=== PATIENT | female | born 1960 | race Caucasian/White ===

== ENCOUNTER 2017-01-11 21:26 | Emergency (ER) | payer MEDICAID ==
[2017-01-11] MEDS ORDERED: NORMAL SALINE 1000 ML 1,000 ML IV ONE (22:27)
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
[2017-01-11] MEDS ORDERED: IBUPROFEN 600 MG TABLET PO ONE (22:50)
[2017-01-11] MEDS ORDERED: HYDROCODONE/ACETAMINOPHEN 5-325 MG TABLET PO ONE (22:50)
[2017-01-11] MEDS ORDERED: ONDANSETRON 4 MG TAB.RAPDIS PO ONE (23:05)
[2017-01-11] MEDS ORDERED: OXYCODONE-ACETAMINOPHEN 5-325 MG TABLET PO ONE (23:05)
[2017-01-12 06:04] VITALS: BP 118/83
--- NOTE | 2017-01-13 08:14 | EKG REPORT ---
SEVERITY:- ABNORMAL ECG - SINUS RHYTHM PROBABLE INFERIOR INFARCT, AGE INDETERMINATE CONSIDER ANTERIOR INFARCT : Confirmed by: Yamilka Wellington MD 13-Jan-2017 08:13:59
== END 2017-01-11 23:24 | disposition home or self-care (01) ==
LOC: ER 21:26
DX: G89.29 Other chronic pain (principal); M25.511 Pain in right shoulder; I10 Essential (primary) hypertension; J44.9 Chronic obstructive pulmonary disease, unspecified; Z79.899 Other long term (current) drug therapy; Z88.7 Allergy status to serum and vaccine; Z91.040 Latex allergy status; Z91.013 Allergy to seafood
CPT/HCPCS: 93005; 99284; 71010; 93010; L3984; S0119

== ENCOUNTER 2017-01-14 07:37 | Emergency (ER) | payer MEDICAID ==
[2017-01-14] MEDS ORDERED: ONDANSETRON HCL INJ/PF 4 MG/2 ML SDV IV ONE (07:54)
--- NOTE | 2017-01-14 07:57 | ER Document Report ---
ED General - General Chief Complaint: ETOH Abuse Stated Complaint: POSSIBLE ETOH Mode of Arrival: Medic Information source: Patient, Emergency Med Personnel, H Records Notes: 56-year-old female history of chronic shoulder pain and alcohol abuse presents with complaints of alcohol intoxication. Patient states that TRAVEL OUTSIDE OF THE [place] IN LAST 30 DAYS: No - HPI Onset: Other - chronic shoulder pain Onset/Duration: Persistent Quality of pain: Achy Severity: Mild Pain Level: 1 Associated symptoms: Other Exacerbated by: Movement Relieved by: Denies Similar symptoms previously: Yes Recently seen / treated by doctor: Yes - Related Data Allergies/Adverse Reactions: Tetanus Vaccines and Toxoid [Tetanus] Allergy (Severe, Verified 09/24/16 13:32) Latex, Natural Rubber Allergy (Verified 01/11/17 21:32) shellfish derived Allergy (Verified 01/11/17 21:32) Past Medical History - Social History Smoking Status: Current Every Day Smoker Cigarette use (# per day): Yes Chew tobacco use (# tins/day): No Smoking Education Provided: No Frequency of alcohol use: Heavy Family History: CAD, DM, Hyperlipidemia, Hypertension. denies: Arthritis, COPD , CVA, Malignancy, Thyroid Disfunction - Past Medical History Cardiac Medical History: Reports: Hx Hypertension Pulmonary Medical History: Reports: Hx COPD, Hx Pneumonia - at age 15 Denies: Hx Tuberculosis Renal/ Medical History: Denies: Hx Peritoneal Dialysis Musculoskeltal Medical History: Reports Hx Arthritis, Reports Hx Musculoskeletal Deformity Psychiatric Medical History: Reports: Hx Attention Deficit Hyperactivity Disorder, Hx Bipolar Disorder Past Surgical History: Reports: Hx Appendectomy, Hx Tonsillectomy - Immunizations Immunizations up to date: No Hx Diphtheria, Pertussis, Tetanus Vaccination: No Review of Systems - Review of Systems Notes: REVIEW OF SYSTEMS: CONSTITUTIONAL : Denies fever, chills, or sweats. Denies recent illness. EENT: Denies eye, ear, throat, or mouth pain or symptoms. Denies nasal or sinus congestion or discharge. Denies throat, tongue, or mouth swelling or difficulty swallowing. CARDIOVASCULAR: Denies chest pain. Denies palpitations or racing or irregular heart beat. Denies ankle edema. RESPIRATORY: Denies cough, cold, or chest congestion. Denies shortness of breath, difficulty breathing, or wheezing. GASTROINTESTINAL: Denies abdominal pain or distention. Denies nausea, vomiting , or diarrhea. Denies blood in vomitus, stools, or per rectum. Denies black, tarry stools. Denies constipation. GENITOURINARY: Denies difficulty urinating, painful urination, burning, frequency, blood in urine, or discharge. FEMALE GENITOURINARY: Denies vaginal bleeding, heavy or abnormal periods, irregular periods. Denies vaginal discharge or odor. MUSCULOSKELETAL: Right shoulder pain SKIN: Denies rash, lesions or sores. HEMATOLOGIC : Denies easy bruising or bleeding. LYMPHATIC: Denies swollen, enlarged glands. NEUROLOGICAL: Denies confusion or altered mental status. Denies passing out or loss of consciousness. Denies dizziness or lightheadedness. Denies headache. Denies weakness or paralysis or loss of use of either side. Denies problems with gait or speech. Denies sensory loss, numbness, or tingling. Denies seizures. PSYCHIATRIC: Admits to feeling anxious ALL OTHER SYSTEMS REVIEWED AND NEGATIVE. Dictation was performed using [employer] voice recognition software PHYSICAL EXAMINATION: GENERAL: Well-appearing, well-nourished and in no acute distress. HEAD: Atraumatic, normocephalic. EYES: Pupils equal round and reactive to light, extraocular movements intact, conjunctiva are normal. ENT: Nares patent, oropharynx clear without exudates. Moist mucous membranes. NECK: Normal range of motion, supple without lymphadenopathy LUNGS: Breath sounds clear to auscultation bilaterally and equal. No wheezes rales or rhonchi. HEART: Regular rate and rhythm without murmurs ABDOMEN: Soft, nontender, nondistended abdomen. No guarding, no rebound. No masses appreciated. Female : deferred Musculoskeletal: Admits to pain with range of motion NEUROLOGICAL: Cranial nerves grossly intact. Normal speech, normal gait. Normal sensory, motor exams PSYCH: Normal mood, normal affect. SKIN: Warm, Dry, normal turgor, no rashes or lesions noted. Physical Exam - Vital signs Vitals: Temp Pulse Resp BP Pulse Ox 97.8 F 89 16 119/76 97 01/14/17 07:53 01/14/17 07:53 01/14/17 07:53 01/14/17 07:53 01/14/17 07:53 Course - Re-evaluation Re-evalutation: 01/14/17 08:13 Patient was now withdrawn, she is in no distress. Stated that she was anxious resting comfortably on the bed. Patient was told multiple times that she would not be given any benzos at this time since she is not in any withdrawal. Patient alert oriented, appears that she was shown the bathroom and then went away. IV was in place, nursing staff informed me that the patient had left, multiple times to locate her have been tried Otherwise it appears patient has left prior to discharge, she was not intoxicated - Vital Signs Vital signs: Temp Pulse Resp BP Pulse Ox 97.8 F 89 16 119/76 97 01/14/17 07:53 01/14/17 07:53 01/14/17 07:53 01/14/17 07:53 01/14/17 07:53 Discharge - Discharge Clinical Impression: Shoulder pain, right Qualifiers: Chronicity: chronic Qualified Code(s): M25.511 - Pain in right shoulder Condition: Stable Disposition: ELOPED Additional Instructions: You have left prior to a full evaluation, at this time nursing staff has been informed to attempt to locate you
[2017-01-14 07:58] VITALS: BP 119/76
== END 2017-01-14 09:10 | disposition left against medical advice (07) ==
LOC: ER 07:37
DX: G89.29 Other chronic pain (principal); M25.511 Pain in right shoulder; F10.129 Alcohol abuse with intoxication, unspecified; F41.9 Anxiety disorder, unspecified; I10 Essential (primary) hypertension; J44.9 Chronic obstructive pulmonary disease, unspecified; F17.210 Nicotine dependence, cigarettes, uncomplicated; Z88.7 Allergy status to serum and vaccine; Z91.040 Latex allergy status; Z91.013 Allergy to seafood; Z53.20 Procedure and treatment not carried out because of patient's decision for unspecified reasons
CPT/HCPCS: 99281; 96374; J2405

== ENCOUNTER 2017-01-17 07:30 | Emergency (ER) | payer MEDICAID ==
[2017-01-17 07:55] VITALS: BP 121/59
--- NOTE | 2017-01-17 08:13 | ER Document Report ---
ED General - General Chief Complaint: ETOH Abuse Stated Complaint: POSSIBLE ETOH TRAVEL OUTSIDE OF THE [place] IN LAST 30 DAYS: No - HPI Patient complains to provider of: alcohol use Notes: Patient coming in today stating that she is drunk initially requesting medications for alcohol withdrawals. Patient states to EMS that she drank 2 gallons of vodka prior to arrival. Patient refused all care by EMS. Upon my entrance into examination room patient is a alert and oriented patient is requesting medications for alcohol withdrawals. Patient is drinking water however upon placing the cutdown starts to shake in her upper extremities pointing to the tremor stating "I have tremors". Patient is alert and oriented she is able to refuse medical care by EMS also was able to call EMS therefore I think she is within the right mind to make raw medical decisions. Patient does not seem to be drunk at this time. Patient also complains of chronic right shoulder pain for she's been evaluated for multiple times here in the ER. Denies any fevers chills nausea vomiting recent trauma recent antibiotics or recent travel - Related Data Allergies/Adverse Reactions: Tetanus Vaccines and Toxoid [Tetanus] Allergy (Severe, Verified 01/17/17 07:58) Latex, Natural Rubber Allergy (Verified 01/17/17 07:58) shellfish derived Allergy (Verified 01/17/17 07:58) Past Medical History - Social History Smoking Status: Unknown if Ever Smoked Family History: CAD, DM, Hyperlipidemia, Hypertension. denies: Arthritis, COPD , CVA, Malignancy, Thyroid Disfunction - Past Medical History Cardiac Medical History: Reports: Hx Hypertension Pulmonary Medical History: Reports: Hx COPD, Hx Pneumonia - at age 15 Denies: Hx Tuberculosis Renal/ Medical History: Denies: Hx Peritoneal Dialysis Musculoskeltal Medical History: Reports Hx Arthritis, Reports Hx Musculoskeletal Deformity Psychiatric Medical History: Reports: Hx Attention Deficit Hyperactivity Disorder, Hx Bipolar Disorder Past Surgical History: Reports: Hx Appendectomy, Hx Tonsillectomy - Immunizations Immunizations up to date: No Hx Diphtheria, Pertussis, Tetanus Vaccination: No Review of Systems - Review of Systems Constitutional: No symptoms reported EENT: No symptoms reported Cardiovascular: No symptoms reported Respiratory: No symptoms reported Gastrointestinal: No symptoms reported Genitourinary: No symptoms reported Female Genitourinary: No symptoms reported Musculoskeletal: No symptoms reported Skin: No symptoms reported Hematologic/Lymphatic: No symptoms reported Neurological/Psychological: Other - Alcohol use Physical Exam - Vital signs Vitals: Temp Pulse Resp BP Pulse Ox 97.5 F 117 H 18 121/59 L 98 01/17/17 07:36 01/17/17 07:36 01/17/17 07:36 01/17/17 07:36 01/17/17 07:36 Interpretation: Normal - General General appearance: Appears well, Alert - HEENT Head: Normocephalic, Atraumatic Eyes: Normal Pupils: PERRL - Respiratory Respiratory status: No respiratory distress Chest status: Nontender Breath sounds: Normal Chest palpation: Normal - Cardiovascular Rhythm: Regular Heart sounds: Normal auscultation Murmur: No - Abdominal Inspection: Normal Distension: No distension Bowel sounds: Normal Tenderness: Nontender Organomegaly: No organomegaly - Back Back: Normal, Nontender - Extremities General upper extremity: Normal inspection, Tender - Patient states pain to palpation of the right shoulder although lying on her right side comfortably, Normal color, Normal ROM, Normal temperature General lower extremity: Normal inspection, Nontender, Normal color, Normal ROM , Normal temperature, Normal weight bearing. No: Maye's sign - Neurological Neuro grossly intact: Yes Cognition: Normal Orientation: AAOx4 Mi Coma Scale Eye Opening: Spontaneous [place] Coma Scale Verbal: Oriented Mi Coma Scale Motor: Obeys Commands Mi Coma Scale Total: 15 Speech: Normal Motor strength normal: LUE, RUE, LLE, RLE Sensory: Normal - Psychological Associated symptoms: Normal affect, Normal mood - Skin Skin Temperature: Warm Skin Moisture: Dry Skin Color: Normal Course - Re-evaluation Re-evalutation: 01/17/17 08:40 Patient's vital signs stable EMS are normal. Patient has no signs of alcohol withdrawals at this time patient is alert and oriented they would make her own medical decisions. Explained to patient that this time she is not going through any alcohol withdrawals. However patient outpatient management groups and resources to help out with her alcoholism. Patient will be discharged home patient was referred to [facility] - Vital Signs Vital signs: Temp Pulse Resp BP Pulse Ox 97.5 F 117 H 18 121/59 L 98 01/17/17 07:36 01/17/17 07:36 01/17/17 07:36 01/17/17 07:36 01/17/17 07:36 Discharge - Discharge Clinical Impression: Chronic alcohol abuse Condition: Good Disposition: HOME, SELF-CARE Instructions: Chronic Alcoholism ([facility]) Additional Instructions: Your vital signs are normal there is no signs of alcohol withdrawals at this time. I would highly recommend following up at [facility] which is located adjacent from the ER for your alcohol issues. Referrals: [facility] [Provider Group] - Follow up as needed [facility] [Provider Group] - Follow up as needed [facility] [Provider Group] - Follow up as needed
== END 2017-01-17 08:26 | disposition home or self-care (01) ==
LOC: ER 07:30
DX: F10.10 Alcohol abuse, uncomplicated (principal)
CPT/HCPCS: 99284

== ENCOUNTER 2017-01-20 08:33 | Emergency (ER) | payer MEDICAID ==
[2017-01-20] MEDS ORDERED: IPRATROPIUM/ALBUTEROL 0.5-2.5 MG/3 ML AMPUL NEB ONE (09:07)
--- NOTE | 2017-01-20 09:09 | ER Document Report ---
ED General - General Stated Complaint: WITHDRAWAL SYMPTONS Mode of Arrival: Medic Information source: Patient, [facility] Records Notes: 56-year-old chronic alcoholic who is presenting now multiple times for similar complaints of withdrawal yet has never shown any signs of withdrawal presents again with complaints of withdrawal. Patient notes she was recently discharged from the ED a few hours ago. pt denies any nausea or vomiting. admits to depression TRAVEL OUTSIDE OF THE [place] IN LAST 30 DAYS: No - HPI Onset: Other Onset/Duration: Persistent Quality of pain: No pain Severity: Mild Pain Level: 1 Associated symptoms: Other Exacerbated by: Denies Relieved by: Denies Similar symptoms previously: Yes Recently seen / treated by doctor: Yes - Related Data Allergies/Adverse Reactions: Tetanus Vaccines and Toxoid [Tetanus] Allergy (Severe, Verified 01/17/17 07:58) Latex, Natural Rubber Allergy (Verified 01/17/17 07:58) shellfish derived Allergy (Verified 01/17/17 07:58) Home Medications: Current Home Medications Fluticasone/Salmeterol [Advair 250-50 Diskus 28 dose] 1 inh IH Q12 01/20/17 [ History] Gabapentin [Neurontin 300 mg Capsule] 300 mg PO QID 01/20/17 [History] Lisinopril/Hydrochlorothiazide [Lisinopril-Hctz 10-12.5 mg Tab] 1 each PO DAILY 01/20/17 [History] Simvastatin [Zocor 20 mg Tablet] 20 mg PO QHS 01/20/17 [History] Tramadol HCl [Ultram 50 mg Tablet] 50 mg PO Q8HP PRN 01/20/17 [History] Past Medical History - Social History Smoking Status: Current Every Day Smoker Cigarette use (# per day): Yes Chew tobacco use (# tins/day): No Smoking Education Provided: Yes - Patient counselled regarding cessation for 4 minutes Family History: CAD, DM, Hyperlipidemia, Hypertension. denies: Arthritis, COPD , CVA, Malignancy, Thyroid Disfunction - Past Medical History Cardiac Medical History: Reports: Hx Hypertension Pulmonary Medical History: Reports: Hx COPD, Hx Pneumonia - at age 15 Denies: Hx Tuberculosis Renal/ Medical History: Denies: Hx Peritoneal Dialysis Musculoskeltal Medical History: Reports Hx Arthritis, Reports Hx Musculoskeletal Deformity Psychiatric Medical History: Reports: Hx Attention Deficit Hyperactivity Disorder, Hx Bipolar Disorder Past Surgical History: Reports: Hx Appendectomy, Hx Tonsillectomy - Immunizations Immunizations up to date: No Hx Diphtheria, Pertussis, Tetanus Vaccination: No Review of Systems - Review of Systems Notes: REVIEW OF SYSTEMS: CONSTITUTIONAL : Denies fever, chills, or sweats. Denies recent illness. EENT: Denies eye, ear, throat, or mouth pain or symptoms. Denies nasal or sinus congestion or discharge. Denies throat, tongue, or mouth swelling or difficulty swallowing. CARDIOVASCULAR: Denies chest pain. Denies palpitations or racing or irregular heart beat. Denies ankle edema. RESPIRATORY: admits to wheezing GASTROINTESTINAL: Denies abdominal pain or distention. Denies nausea, vomiting , or diarrhea. Denies blood in vomitus, stools, or per rectum. Denies black, tarry stools. Denies constipation. GENITOURINARY: Denies difficulty urinating, painful urination, burning, frequency, blood in urine, or discharge. FEMALE GENITOURINARY: Denies vaginal bleeding, heavy or abnormal periods, irregular periods. Denies vaginal discharge or odor. MUSCULOSKELETAL: Denies back or neck pain or stiffness. Denies joint pain or swelling. SKIN: Denies rash, lesions or sores. HEMATOLOGIC : Denies easy bruising or bleeding. LYMPHATIC: Denies swollen, enlarged glands. NEUROLOGICAL: Denies confusion or altered mental status. Denies passing out or loss of consciousness. Denies dizziness or lightheadedness. Denies headache. Denies weakness or paralysis or loss of use of either side. Denies problems with gait or speech. Denies sensory loss, numbness, or tingling. Denies seizures. PSYCHIATRIC: admits ot depresison ALL OTHER SYSTEMS REVIEWED AND NEGATIVE. Dictation was performed using [employer] voice recognition software PHYSICAL EXAMINATION: GENERAL: Well-appearing, well-nourished and in no acute distress. HEAD: Atraumatic, normocephalic. EYES: Pupils equal round and reactive to light, extraocular movements intact, conjunctiva are normal. ENT: Nares patent, oropharynx clear without exudates. Moist mucous membranes. NECK: Normal range of motion, supple without lymphadenopathy LUNGS: inspiatory and expiratroy wheezing noted HEART: Regular rate and rhythm without murmurs ABDOMEN: Soft, nontender, nondistended abdomen. No guarding, no rebound. No masses appreciated. Female : deferred Musculoskeletal: Normal range of motion, no pitting or edema. No cyanosis. NEUROLOGICAL: Cranial nerves grossly intact. Normal speech, normal gait. Normal sensory, motor exams PSYCH: Normal mood, normal affect. SKIN: Warm, Dry, normal turgor, no rashes or lesions noted. Physical Exam - Vital signs Vitals: Pulse Resp BP Pulse Ox 102 H 22 H 120/66 97 01/20/17 09:15 01/20/17 09:15 01/20/17 09:15 01/20/17 09:15 Course - Re-evaluation Re-evalutation: 01/20/17 09:10 Patient will require mental health evaluation has is now her third visit 01/20/17 12:58 Patient was evaluated by mental health, they will provide her with resources for her alcohol abuse. I have the patient does follow with this otherwise she will just return with similar complaints. Patient is not withdrawing at this time and I do not have any suspicion of self-harm gestures After performing a Medical Screening Examination, I estimate there is LOW risk for ACUTE CORONARY SYNDROME, RESPIRATORY FAILURE, SEPSIS OR MENINGITIS, thus I consider the discharge disposition reasonable. The patient and I have discussed the diagnosis and risks, and we agree with discharging home with close follow- up. We also discussed returning to the Emergency Department immediately if new or worsening symptoms occur. We have discussed the symptoms which are most concerning (e.g., changing or worsening pain, trouble swallowing or breathing, neck stiffness, fever) that necessitate immediate return. - Vital Signs Vital signs: Temp Pulse Resp BP Pulse Ox 102 H 22 H 120/66 100 01/20/17 09:15 01/20/17 09:15 01/20/17 09:15 01/20/17 10:45 - Laboratory Result Diagrams: 01/20/17 11:37 01/20/17 10:45 Laboratory results interpreted by me: 01/20/17 01/20/17 01/20/17 10:40 10:45 11:37 WBC 14.0 H Seg Neutrophils % 82.3 H Lymphocytes % 11.7 L Absolute Neutrophils 11.5 H Sodium 124.9 L Chloride 79 L Carbon Dioxide 18 L Anion Gap 28 H BUN 42 H Calcium 8.3 L AST 87 H ALT 61 H Total Protein 6.1 L Urine Protein 30 H Urine Ketones 20 H Urine Blood MODERATE H Salicylates < 1.0 L Acetaminophen < 10 L - EKG Interpretation by Me EKG shows normal: Sinus rhythm, [place], Intervals, QRS Complexes Discharge - Discharge Clinical Impression: Encounter for smoking cessation counseling, Chronic alcohol abuse Condition: Stable Disposition: HOME, SELF-CARE Instructions: Chronic Alcoholism ([facility]) Additional Instructions: Please follow up with the care plan provided to you by our mental health team or return immediately if there are any other concerns
[2017-01-20] MEDS ORDERED: ONDANSETRON HCL 8 MG TABLET PO ONE (11:09)
[2017-01-20 11:25] LABS: APPEARANCE,URINE SLIGHTLY-CLOUDY; BILIRUBIN,URINE NEGATIVE (NEGATIVE); GLUCOSE, URINE NEGATIVE (NEGATIVE); KETONES,URINE 20 mg/dL (NEGATIVE); LEUKOCYTE ESTERASE,URINE NEGATIVE (NEGATIVE); NITRITE,URINE NEGATIVE (NEGATIVE); PROTEIN,URINE 30 mg/dL (NEGATIVE); URINE SPECIFIC GRAVITY 1.017; UROBILINOGEN,URINE NEGATIVE mg/dL (<2.0)
[2017-01-20 11:42] LABS: ALANINE AMINOTRANSFERASE 61 U/L (9-52); ALCOHOL 184 mg/dL (NONE DETECTED); ALKALINE PHOSPHATASE 92 U/L (38-126); ASPARTATE AMINO TRANSFERASE 87 U/L (14-36); BLOOD UREA NITROGEN 42 mg/dL (7-20); CALCIUM 8.3 mg/dL (8.4-10.2); CARBON DIOXIDE 18 mmol/L (22-30); CHLORIDE 79 mmol/L (98-107); CREATININE RESULT 0.94 mg/dL (0.52-1.25); GLUCOSE 83 mg/dL (75-110); POTASSIUM 4.2 mmol/L (3.6-5.0); SODIUM 124.9 mmol/L (137-145); TOTAL PROTEIN 6.1 g/dL (6.3-8.2)
[2017-01-20 11:51] LABS: URINE BARBITURATES SCREEN NEGATIVE; URINE METHADONE SCREEN NEGATIVE; URINE OPIATES LOW NEGATIVE; URINE PHENCYCLIDINE SCREEN NEGATIVE
[2017-01-20 11:52] LABS: ABSOLUTE BASOPHILS # (AUTO) 0.1 10^3/uL (0.0-0.2); ABSOLUTE LYMPHOCYTES (AUTO) 1.6 10^3/uL (0.5-4.7); ABSOLUTE MONOCYTES (AUTO) 0.8 10^3/uL (0.1-1.4); ABSOLUTE NEUT (AUTO) 11.5 10^3/uL (1.7-8.2); BASOPHILS % (AUTO) 0.4 % (0-2); EOSINOPHILS % (AUTO) 0.2 % (0-6); HEMATOCRIT 40.5 % (36.0-47.0); HEMOGLOBIN 13.6 g/dL (12.0-15.5); HGB HCT DIFFERENCE 0.3; LYMPHOCYTES % (AUTO) 11.7 % (13-45); MEAN CORPUSCULAR HEMOGLOBIN 28.6 pg (27.0-33.4); MEAN CORPUSCULAR HGB CONC 33.5 g/dL (32.0-36.0); MEAN CORPUSCULAR VOLUME 86 fl (80-97); MONOCYTES % (AUTO) 5.4 % (3-13); RED BLOOD COUNT 4.73 10^6/uL (3.72-5.28); RED CELL DISTRIBUTION WIDTH 12.6 % (11.5-14.0); SEGMENTED NEUTROPHILS % (AUTO) 82.3 % (42-78)
[2017-01-20 11:53] LABS: ANION GAP 28 (5-19)
[2017-01-20] MEDS ORDERED: NORMAL SALINE 1000 ML 1,000 ML IV PRN (12:34)
[2017-01-20 13:17] VITALS: BP 129/75
--- NOTE | 2017-01-20 16:27 | PSYCHOLOGICAL NOTE ---
Psych Note - Psych Note Psych Note: Patient presented to [facility] ED by EMS with history chronic alcoholic who is presenting now multiple times for similar complaints of withdrawal yet has never shown any signs of withdrawal presents again with complaints of withdrawal. Patient notes she was recently discharged from the ED a few hours ago. pt denies any nausea or vomiting. admits to depression Patient is able to disclose she arrived to [facility] ED by EMS. When asked what brings her to the hospital she states she is anxious wants to paranoid and doesn't know where she is. When clinician reminded the patient that she just disclosed to the clinician that she knew that she came to [facility] ED by EMS patient attempted to redirect on multiple other symptoms stating she is shaky, can't think straight, is scared to be alone, and is having hallucinations. When asked to describe sedations patient stated, "I close my eyes and see faces." Clinician asked the patient if the faces were in color or [id number] the patient upon and stated "there are people off the TV." When reminded this does not answer the clinician's question the patient attempted to redirect asking if we were going to find her somewhere or something. The clinician stated that the patient still has not answered the question and the patient stated "sometimes they are both." The patient continued to disclose that she needs help with her drinking. Clinician explained that services are voluntary and that could provide community resource list for all services that assist with substance abuse. The patient stated "I do not have a phone." Clinician continued to explain that there are many services available in the community the patient stated that she does not have transportation. Patient continued disclosed that she was going to go to our [facility] other day but "I didn't go because I didn't want to walk and I wanted to drink instead." Clinician stated that the patient needs to make the initiative for sobriety; the patient proceeded to grab the clinician's arm and stated she was scared and wanted the clinician to sit with her that she wasn't alone." Patient is alert and orientated to person place time and circumstance. Patient attempted to state she was not orientated to place however had previously disclose understanding of where she was and how she got to the ED. Patient's mood is euthymic with labile affect. Clinician notes patient was observed by hospital staff resting calmly and then once noticing she was being observed started to breathe heavy and moan. Patient attempted to endorse suicidal ideation however clinician notes the patient stated to hospital staff patient is sedated that she did not want to be alone because she had cuticle scissors in her purse. Patient then proceeded to yell to the staff to take the knife out of her purse. Approximately 20 minutes later the patient wanted the knife back so she can "end it all." Patient denies homicidal ideation. Patient attempted to endorse visual hallucinations stating she sees faces when she closed her eyes people on TV and that the hallucinations are sometimes in color and sometimes [id number]. No delusions are noted. Thought process is logical organized and linear. Thought content appears to be motivated by an unknown secondary gain. Conversational speech was within normal rate tone and prosody. Eye contact was fair. Intellectual abilities appear to be within average range. Attention and concentration are poor. Insight, judgment, impulse control are poor. 291.9 (F 10.99) Unspecified Alcohol-Related Disorder Impression\\plan: Patient is psychiatrically cleared for discharge. Patient disclosed alcohol abuse however has demonstrated little motivation in following through with sobriety. Patient disclosed that she did attempt inpatient treatment for sobriety back in 2012 however it did not work. She also disclosed that she was going to [facility] but "didn't want to walk and wanted to drink." When patient attempted to demonstrate psychosis, patient was unable to demonstrate symptoms that correlate with known symptoms of psychosis; such as seeing hallucinations and both color and in black and white. Patient also attempted to demonstrate not having orientation however had just previously disclosed an understanding of orientation 1 minute prior. At this time, patie I can she do shent is recommended to follow-up with [facility] for outpatient services for her alcohol abuse. Dr. Palacios was consulted on the care and management of this patient; attending physician is in agreement with recommendations and disposition.
--- NOTE | 2017-01-21 09:10 | EKG REPORT ---
SEVERITY:- ABNORMAL ECG - SINUS TACHYCARDIA NONSPECIFIC ST-T CHANGES- INFERIOR LEADS : Confirmed by: Narciso Chandler MD 21-Jan-2017 09:09:53
== END 2017-01-20 13:20 | disposition home or self-care (01) ==
LOC: ER 08:33
DX: F10.20 Alcohol dependence, uncomplicated (principal); F32.9 Major depressive disorder, single episode, unspecified; I10 Essential (primary) hypertension; J44.9 Chronic obstructive pulmonary disease, unspecified; F17.210 Nicotine dependence, cigarettes, uncomplicated; Z71.6 Tobacco abuse counseling; Z88.7 Allergy status to serum and vaccine; Z91.040 Latex allergy status; Z91.013 Allergy to seafood
CPT/HCPCS: 93005; 99406; 94640; 99285; 36415; 80307 ×4; 85025; 80053; 81001; 93010; S0119; J7620

== ENCOUNTER 2017-01-22 19:59 | Inpatient (IN) | payer MEDICAID ==
--- NOTE | 2017-01-22 20:20 | ER Document Report ---
ED Substance Abuse / Acc. OD - General Mode of Arrival: Medic Information source: Patient, Emergency Med Personnel TRAVEL OUTSIDE OF THE [place] IN LAST 30 DAYS: No - HPI Patient complains to provider of: Alcohol abuse Associated Symptoms: Other - See above <EFE BUSH - Last Filed: 01/22/17 22:09> <MICHEAL RICK - Last Filed: 01/22/17 23:31> - General Chief Complaint: ETOH Abuse Stated Complaint: POSSIBLE ETOH Notes: Patient is a 56 year old female who presents to the emergency department via EMS after being found unresponsive just prior to arrival. Per EMS patient was found at the [facility] with two large empty bottles of vodka and asleep on the bed, when roused patient was able to say "alcohol". EMS report that patient's blood sugar was low and they raised it en route. Patient was reportedly aggressive and found wearing blue psychiatric uniform. Patient was also found with two bottles of pills, one with Zofran and one labeled Jet Alert 100mg. Patient is uncooperative during exam. (EFE BUSH) - Related Data Allergies/Adverse Reactions: Tetanus Vaccines and Toxoid [Tetanus] Allergy (Severe, Verified 01/17/17 07:58) Latex, Natural Rubber Allergy (Verified 01/17/17 07:58) shellfish derived Allergy (Verified 01/17/17 07:58) Past Medical History - General Information source: Emergency Med Personnel Cannot obtain history due to: Uncooperative - Social History Smoking Status: Unknown if Ever Smoked Family History: Reviewed & Not Pertinent, CAD, DM, Hyperlipidemia, Hypertension - Past Medical History Cardiac Medical History: Reports: Hx Hypertension Pulmonary Medical History: Reports: Hx COPD, Hx Pneumonia - at age 15 Musculoskeltal Medical History: Reports Hx Arthritis, Reports Hx Musculoskeletal Deformity Psychiatric Medical History: Reports: Hx Attention Deficit Hyperactivity Disorder, Hx Bipolar Disorder Past Surgical History: Reports: Hx Appendectomy, Hx Tonsillectomy - Immunizations Immunizations up to date: No Hx Diphtheria, Pertussis, Tetanus Vaccination: No <EFE BUSH - Last Filed: 01/22/17 22:09> Review of Systems - Review of Systems -: Yes ROS unobtainable due to patient's medical condition - uncooperative <EFE BUSH - Last Filed: 01/22/17 22:09> Physical Exam - Vital signs Interpretation: Tachycardic - General General appearance: Other - Smell of EtOH, disheveled In distress: None - Respiratory Respiratory status: No respiratory distress Breath sounds: Normal - Cardiovascular Rhythm: Regular - Abdominal Inspection: Normal Tenderness: Nontender - Extremities General upper extremity: Normal inspection, Normal ROM General lower extremity: Normal inspection, Normal ROM - Neurological Cognition: Confused Brooker Coma Scale Eye Opening: Spontaneous Brooker Coma Scale Verbal: Confused Mi Coma Scale Motor: Localizes to Pain Mi Coma Scale Total: 13 - Skin Skin Temperature: Warm Skin Moisture: Dry <MICHEAL RICK - Last Filed: 01/22/17 23:31> - Vital signs Vitals: Temp Pulse Resp BP Pulse Ox 97.9 F 92 18 118/70 98 01/22/17 20:25 01/22/17 20:25 01/22/17 20:25 01/22/17 20:25 01/22/17 20:25 Course - Laboratory Result Diagrams: 01/22/17 20:17 01/22/17 20:17 - Consults Hospitalist Time consulted: 22:06 - Discussed admission <EFE BUSH - Last Filed: 01/22/17 22:09> - Laboratory Result Diagrams: 01/22/17 20:17 01/22/17 20:17 <MICHEAL RICK - Last Filed: 01/22/17 23:31> - Re-evaluation Re-evalutation: 01/22/17 Patient is a 56-year-old female who comes in with alcohol intoxication some confusion. Patient was apparently found during a well check at a hotel surrounded by alcohol bottles that were empty. Patient has a low sodium, low potassium, and a CO2 of 13. Patient was discussed the hospitalist service and due to her electrolyte abnormalities will be referred for admission. Patient is otherwise neurologically intact. She is currently intoxicated. (MICHEAL RICK) - Vital Signs Vital signs: Temp Pulse Resp BP Pulse Ox 97.9 F 92 18 118/70 98 01/22/17 20:25 01/22/17 20:25 01/22/17 20:25 01/22/17 20:25 01/22/17 20:25 - Laboratory Laboratory results interpreted by me: 01/22/17 01/22/17 01/22/17 20:17 20:17 20:17 Sodium 126.8 L Potassium 3.0 L* Chloride 82 L Carbon Dioxide 13 L Anion Gap 32 H BUN 23 H Calcium 8.3 L Phosphorus 2.4 L AST 75 H Creatine Kinase 332 H Urine Protein Urine Ketones Urine Blood Salicylates < 1.0 L Acetaminophen < 10 L 01/22/17 20:50 Sodium Potassium Chloride Carbon Dioxide Anion Gap BUN Calcium Phosphorus AST Creatine Kinase Urine Protein 30 H Urine Ketones 80 H Urine Blood SMALL H Salicylates Acetaminophen Discharge <EFE BUSH - Last Filed: 01/22/17 22:09> - Discharge Admitting Provider: Hospitalist Unit Admitted: Telemetry <MICHEAL RICK - Last Filed: 01/22/17 23:31> - Discharge Clinical Impression: Chronic alcohol abuse, Hyponatremia, Hypokalemia, Alcoholic ketoacidosis Condition: Stable Disposition: ADMITTED INPATIENT Scribe Attestation: 01/22/17 23:30 I personally performed the services described in the documentation, reviewed and edited the documentation which was dictated to the scribe in my presence, and it accurately records my words and actions. (MICHEAL RICK) Scribe Documentation - Scribe Written by Weston:: weston Wilkinson, 01/22/172027 acting as scribe for :: Rhett <EFE BUSH - Last Filed: 01/22/17 22:09>
[2017-01-22 20:33] LABS: ABSOLUTE EOSINOPHILS # (AUTO) 0.1 10^3/uL (0.0-0.6); ABSOLUTE MONOCYTES (AUTO) 0.4 10^3/uL (0.1-1.4); ABSOLUTE NEUT (AUTO) 6.3 10^3/uL (1.7-8.2); BASOPHILS % (AUTO) 0.3 % (0-2); EOSINOPHILS % (AUTO) 0.8 % (0-6); LYMPHOCYTES % (AUTO) 22.5 % (13-45); MEAN CORPUSCULAR HEMOGLOBIN 29.6 pg (27.0-33.4); MEAN CORPUSCULAR HGB CONC 34.1 g/dL (32.0-36.0); MEAN CORPUSCULAR VOLUME 87 fl (80-97); MONOCYTES % (AUTO) 4.5 % (3-13); RED BLOOD COUNT 5.08 10^6/uL (3.72-5.28); RED CELL DISTRIBUTION WIDTH 12.8 % (11.5-14.0); SEGMENTED NEUTROPHILS % (AUTO) 71.9 % (42-78); WHITE BLOOD COUNT 8.8 10^3/uL (4.0-10.5)
[2017-01-22] MEDS ORDERED: NORMAL SALINE 1000 ML 1,000 ML IV ONE (21:45)
[2017-01-22 21:49] LABS: ALANINE AMINOTRANSFERASE 48 U/L (9-52); ALBUMIN 4.1 g/dL (3.5-5.0); ALCOHOL 279 mg/dL (NONE DETECTED); ALKALINE PHOSPHATASE 86 U/L (38-126); ASPARTATE AMINO TRANSFERASE 75 U/L (14-36); BLOOD UREA NITROGEN 23 mg/dL (7-20); CALCIUM 8.3 mg/dL (8.4-10.2); CARBON DIOXIDE 13 mmol/L (22-30); CREATININE RESULT 0.79 mg/dL (0.52-1.25); GLUCOSE 107 mg/dL (75-110); TOTAL PROTEIN 6.4 g/dL (6.3-8.2)
[2017-01-22 21:55] LABS: APPEARANCE,URINE SLIGHTLY-CLOUDY; BILIRUBIN,URINE NEGATIVE (NEGATIVE); GLUCOSE, URINE NEGATIVE (NEGATIVE); KETONES,URINE 80 mg/dL (NEGATIVE); LEUKOCYTE ESTERASE,URINE NEGATIVE (NEGATIVE); NITRITE,URINE NEGATIVE (NEGATIVE); PROTEIN,URINE 30 mg/dL (NEGATIVE); URINE SPECIFIC GRAVITY 1.016; UROBILINOGEN,URINE NEGATIVE mg/dL (<2.0)
[2017-01-22 21:58] LABS: ANION GAP 32 (5-19); CHLORIDE 82 mmol/L (98-107); SODIUM 126.8 mmol/L (137-145)
[2017-01-22] MEDS ORDERED: THIAMINE HCL 100 MG, FOLIC ACID 1 MG in NORMAL SALINE 50 ML IV ONE (22:10)
[2017-01-22 22:11] LABS: URINE BARBITURATES SCREEN NEGATIVE; URINE METHADONE SCREEN NEGATIVE; URINE OPIATES LOW NEGATIVE; URINE PHENCYCLIDINE SCREEN NEGATIVE
[2017-01-22] MEDS ORDERED: LORAZEPAM INJ 2 MG/1 ML VIAL IV ONE (22:18)
[2017-01-22] MEDS ORDERED: LORAZEPAM INJ 2 MG/1 ML VIAL IV PRN (22:20)
[2017-01-22] MEDS ORDERED: MAGNESIUM SULFATE/D5W 100 ML IV SCH (22:30)
[2017-01-22 22:33] LABS: MAGNESIUM 2.2 mg/dL (1.6-2.3); PHOSPHORUS 2.4 mg/dL (2.5-4.5)
[2017-01-22] MEDS: POTASSI CL 20 MEQ/50 ML RIDER 50 ML IV SCH (23:31)
[2017-01-22] MEDS ORDERED: DEXTROSE 50%-WATER 25 GM/50 ML DISP.SYRIN IV ONE (23:58)
[2017-01-23] MEDS ORDERED: THIAMINE HCL 100 MG, FOLIC ACID 1 MG in NORMAL SALINE 50 ML IV ONE (01:15)
[2017-01-23] MEDS ORDERED: THIAMINE HCL INJ 200 MG/2 ML VIAL ONE (01:38)
[2017-01-23] MEDS ORDERED: FOLIC ACID INJ 5 MG/1 ML 10 ML VIAL ONE (01:39)
[2017-01-23] MEDS: ONDANSETRON HCL INJ/PF 4 MG/2 ML SDV IV PRN (02:36)
[2017-01-23] MEDS: POTASSI CL 20 MEQ/50 ML RIDER 50 ML IV SCH (02:39)
[2017-01-23] MEDS ORDERED: INFLUENZA ADLT QUAD (36MOS+) 2016-17 VAC 0.5 ML SYR IM PRN (03:47)
--- NOTE | 2017-01-23 04:20 | PDOC H&P ---
History of Present Illness Admission Date/PCP: 01/22/17 22:18 Patient complains of: Altered mental status History of Present Illness: SANDRA CORTES is a 56 year old female with a past medical history of alcoholism who is found by EMS unresponsive wearing blue psychiatric uniform at the [place] and with 2 large empty bottles of vodka patient was briefly aroused able to say alcohol. Her blood sugar was found to be in the 50s receives dextrose and brought to the emergency room for evaluation where she became combative requiring sedation and restraints. In the emergency room she's found to have severe metabolic acidosis and acute alcohol intoxication. She is otherwise unable to provide history and referred to the hospitalist for admission. Past Medical History Cardiac Medical History: Reports: Hypertension Pulmonary Medical History: Reports: Chronic Obstructive Pulmonary Disease (COPD) , Pneumonia - at age 15 Denies: Tuberculosis Musculoskeltal Medical History: Reports: Arthritis Psychiatric Medical History: Reports: Alcohol Dependency, Attention Deficit Hyperactivity Disorder, Bipolar Disorder, Substance Abuse, Tobacco Dependency Past Surgical History Past Surgical History: Reports: Appendectomy, Tonsillectomy Social History Information Source: [facility] Records Lives with: Alone Smoking Status: Unknown if Ever Smoked Hx Recreational Drug Use: Yes Hx Prescription Drug Abuse: No Family History Family History: Reviewed & Not Pertinent, CAD, DM, Hyperlipidemia, Hypertension Parental Family History Reviewed: Yes Children Family History Reviewed: Yes Sibling(s) Family History Reviewed.: Yes Medication/Allergy Home Medications: Fluticasone/Salmeterol [Advair 250-50 Diskus 28 dose] 1 inh IH Q12 01/20/17 Gabapentin [Neurontin 300 mg Capsule] 300 mg PO QID 01/20/17 Lisinopril/Hydrochlorothiazide [Lisinopril-Hctz 10-12.5 mg Tab] 1 each PO DAILY 01/20/17 Simvastatin [Zocor 20 mg Tablet] 20 mg PO QHS 01/20/17 Tramadol HCl [Ultram 50 mg Tablet] 50 mg PO Q8HP PRN 01/20/17 Allergies/Adverse Reactions: Tetanus Vaccines and Toxoid [Tetanus] Allergy (Severe, Verified 01/17/17 07:58) Latex, Natural Rubber Allergy (Verified 01/17/17 07:58) shellfish derived Allergy (Verified 01/17/17 07:58) Review of Systems ROS unobtainable: Due to mental status Physical Exam Vital Signs: Temp Pulse Resp BP Pulse Ox 98.2 F 94 20 124/69 97 01/23/17 03:46 01/23/17 03:46 01/23/17 03:46 01/23/17 03:46 01/23/17 03:46 Intake & Output 01/21/17 01/22/17 01/23/17 11:59 11:59 11:59 Weight 71.214 kg General appearance: PRESENT: disheveled, severe distress. ABSENT: cooperative, well-nourished Head exam: PRESENT: atraumatic, normocephalic Eye exam: PRESENT: conjunctiva pink, EOMI, PERRLA. ABSENT: scleral icterus Ear exam: PRESENT: normal external ear exam Mouth exam: PRESENT: moist, tongue midline Teeth exam: PRESENT: poor dentation Neck exam: ABSENT: carotid bruit, JVD, lymphadenopathy, thyromegaly Respiratory exam: PRESENT: decreased breath sounds, prolonged expiratory phas, symmetrical, tachypnea, unlabored. ABSENT: rales, rhonchi, wheezes Cardiovascular exam: PRESENT: RRR. ABSENT: diastolic murmur, rubs, systolic murmur Pulses: PRESENT: normal dorsalis pedis pul Vascular exam: PRESENT: normal capillary refill GI/Abdominal exam: PRESENT: normal bowel sounds, soft. ABSENT: distended, guarding, mass, organolmegaly, rebound, tenderness Rectal exam: PRESENT: deferred Extremities exam: PRESENT: other - Left leg with for by 10 cm ecchymosis, right upper arm with 6 x 4 cm ecchymosis Neurological exam: PRESENT: altered, oriented to person, reflexes normal, CN II- XII grossly intact. ABSENT: oriented to place, oriented to time, oriented to situation Psychiatric exam: PRESENT: agitated Skin exam: PRESENT: dry, intact, warm, other - Several large areas of ecchymosis to the right upper arm, right lateral torso and left lower leg. ABSENT: cyanosis, rash Results Laboratory Results: 01/22/17 23:59 Serum Osmolality 335 H Impressions: Chest X-Ray 01/22/17 00:00 IMPRESSION: NO ACUTE RADIOGRAPHIC FINDING IN THE CHEST. Assessment & Plan - Diagnosis (1) Acute alcohol intoxication Qualifiers: Complication of substance-induced condition: with delirium Qualified Code(s): F10.121 - Alcohol abuse with intoxication delirium Is this a current diagnosis for this admission?: YesPlan: Anticipate alcohol withdrawal she'll receive supportive care with thiamine folate and Ativan (2) Wernickes encephalopathy Is this a current diagnosis for this admission?: YesPlan: Patient is severely encephalopathic reevaluate for Warnicke's encephalopathy following DTs (3) Hyponatremia Is this a current diagnosis for this admission?: YesPlan: Patient appears euvolemic I will Reevaluate chemistry continue normal saline 2 L (4) Hypokalemia Is this a current diagnosis for this admission?: YesPlan: Replete and reevaluate chemistry - Time Time Spent: 30 to 50 Minutes - Inpatient Certification Medical Necessity: Need Close Monitoring Due to Risk of Patient Decompensation
[2017-01-23] MEDS: LORAZEPAM INJ 2 MG/1 ML VIAL IV PRN ×5 (04:22→22:55)
[2017-01-23] MEDS: NORMAL SALINE 1000 ML 1,000 ML IV SCH ×3 (04:57→13:53)
[2017-01-23] MEDS: POTASSI CL 20 MEQ/50 ML RIDER 20 MEQ/50 ML RTUPB IV SCH ×2 (05:02→09:52)
[2017-01-23] MEDS: HEPARIN SOD (PORCINE) 5,000 UNIT/ML 1 ML SYRINGE SUBCUT SCH ×3 (06:08→20:18)
[2017-01-23 06:21] LABS: ABSOLUTE LYMPHOCYTES (AUTO) 1.6 10^3/uL (0.5-4.7); ABSOLUTE MONOCYTES (AUTO) 0.5 10^3/uL (0.1-1.4); ABSOLUTE NEUT (AUTO) 11.8 10^3/uL (1.7-8.2); BASOPHILS % (AUTO) 0.2 % (0-2); EOSINOPHILS % (AUTO) 0.3 % (0-6); HEMATOCRIT 36.2 % (36.0-47.0); LYMPHOCYTES % (AUTO) 11.8 % (13-45); MEAN CORPUSCULAR HEMOGLOBIN 29.1 pg (27.0-33.4); MEAN CORPUSCULAR HGB CONC 34.2 g/dL (32.0-36.0); MEAN CORPUSCULAR VOLUME 85 fl (80-97); MONOCYTES % (AUTO) 3.5 % (3-13); RED BLOOD COUNT 4.26 10^6/uL (3.72-5.28); RED CELL DISTRIBUTION WIDTH 12.2 % (11.5-14.0); SEGMENTED NEUTROPHILS % (AUTO) 84.2 % (42-78)
[2017-01-23 06:46] LABS: HEMOGLOBIN 12.4 g/dL (12.0-15.5)
[2017-01-23 06:48] LABS: ALANINE AMINOTRANSFERASE 52 U/L (9-52); ALKALINE PHOSPHATASE 73 U/L (38-126); ANION GAP 17 (5-19); ASPARTATE AMINO TRANSFERASE 46 U/L (14-36); BILIRUBIN,TOTAL 0.9 mg/dL (0.2-1.3); BLOOD UREA NITROGEN 17 mg/dL (7-20); CALCIUM 7.5 mg/dL (8.4-10.2); CARBON DIOXIDE 20 mmol/L (22-30); CHLORIDE 86 mmol/L (98-107); CREATININE RESULT 0.71 mg/dL (0.52-1.25); GLUCOSE 240 mg/dL (75-110); POTASSIUM 3.6 mmol/L (3.6-5.0); TOTAL PROTEIN 4.9 g/dL (6.3-8.2)
[2017-01-23] MEDS ORDERED: MAGNESIUM SULFATE/D5W 1 GM/100 ML RTUPB IV ONE (07:29)
[2017-01-23] MEDS: DOCUSATE SODIUM 100 MG CAPSULE PO SCH ×2 (09:48→17:05)
[2017-01-23] MEDS ORDERED: ALBUTEROL SULFATE 0.083% NEB 2.5 MG/3 ML AMPUL NEB PRN (10:15)
[2017-01-23] MEDS: IPRATROPIUM/ALBUTEROL 0.5-2.5 MG/3 ML AMPUL NEB PRN (10:51)
--- NOTE | 2017-01-23 11:42 | PDOC PROGRESS REPORT ---
Subjective Progress Note for:: 01/23/17 Subjective:: Patient had just received Ativan but was still complaining of anxiety. She denies any shortness of breath or chest pain. She is alert and oriented to person and place but confused to time. Physical Exam Vital Signs: Temp Pulse Resp BP Pulse Ox 98.3 F 97 24 H 115/51 L 93 01/23/17 10:26 01/23/17 10:26 01/23/17 10:26 01/23/17 10:26 01/23/17 10:26 Intake & Output 01/22/17 01/23/17 01/24/17 06:59 06:59 06:59 Intake Total 1630 Output Total 0 Balance 1630 Weight 75.2 kg General appearance: PRESENT: no acute distress Eye exam: PRESENT: conjunctiva pink. ABSENT: scleral icterus Ear exam: PRESENT: normal external ear exam Mouth exam: PRESENT: moist, tongue midline Neck exam: ABSENT: JVD Respiratory exam: PRESENT: clear to auscultation karla. ABSENT: rales, rhonchi, wheezes Cardiovascular exam: PRESENT: RRR. ABSENT: diastolic murmur, rubs, systolic murmur GI/Abdominal exam: PRESENT: normal bowel sounds, soft. ABSENT: distended, guarding, mass, organolmegaly, rebound, tenderness Extremities exam: ABSENT: calf tenderness, clubbing, pedal edema Neurological exam: PRESENT: alert, awake, oriented to person, oriented to place , motor sensory deficit Psychiatric exam: PRESENT: appropriate affect Skin exam: PRESENT: dry, intact, warm. ABSENT: cyanosis, rash Results Laboratory Results: 01/23/17 05:48 01/23/17 05:48 01/22/17 01/23/17 01/23/17 23:59 05:48 05:48 WBC 14.0 H RBC 4.26 Hgb 12.4 D Hct 36.2 MCV 85 MCH 29.1 MCHC 34.2 RDW 12.2 Plt Count 120 L Seg Neutrophils % 84.2 H Lymphocytes % 11.8 L Monocytes % 3.5 Eosinophils % 0.3 Basophils % 0.2 Absolute Neutrophils 11.8 H Absolute Lymphocytes 1.6 Absolute Monocytes 0.5 Absolute Eosinophils 0.0 Absolute Basophils 0.0 Sodium 123.0 L Potassium 3.6 Chloride 86 L Carbon Dioxide 20 L Anion Gap 17 BUN 17 Creatinine 0.71 Est GFR ( Amer) > 60 Est GFR (Non-Af Amer) > 60 Glucose 240 H Serum Osmolality 335 H Calcium 7.5 L Total Bilirubin 0.9 AST 46 H ALT 52 Alkaline Phosphatase 73 Total Protein 4.9 L Albumin 3.0 L Impressions: Chest X-Ray 01/22/17 00:00 IMPRESSION: NO ACUTE RADIOGRAPHIC FINDING IN THE CHEST. Assessment & Plan - Diagnosis (1) Wernickes encephalopathy Is this a current diagnosis for this admission?: YesPlan: Patient has a long history of alcohol abuse. She is alert and oriented currently person and place but not time. We'll continue with the Ativan, thiamine and folate. (2) Acute alcohol intoxication Qualifiers: Complication of substance-induced condition: with delirium Qualified Code(s): F10.121 - Alcohol abuse with intoxication delirium Is this a current diagnosis for this admission?: YesPlan: Treating this with Ativan when necessary. (3) Hypokalemia Is this a current diagnosis for this admission?: YesPlan: Resolved (4) Hyponatremia Is this a current diagnosis for this admission?: YesPlan: Most likely secondary to the alcohol use. We'll continue the IV fluids and monitor - Time Time Spent with patient: 25-34 minutes - Inpatient Certification Medical Necessity: Need Close Monitoring Due to Risk of Patient Decompensation
[2017-01-24] MEDS: LORAZEPAM INJ 2 MG/1 ML VIAL IV PRN ×9 (01:12→23:38)
[2017-01-24] MEDS: HEPARIN SOD (PORCINE) 5,000 UNIT/ML 1 ML SYRINGE SUBCUT SCH ×3 (05:50→20:29)
[2017-01-24 06:32] LABS: ABSOLUTE EOSINOPHILS # (AUTO) 0.1 10^3/uL (0.0-0.6); ABSOLUTE LYMPHOCYTES (AUTO) 2.1 10^3/uL (0.5-4.7); ABSOLUTE MONOCYTES (AUTO) 0.4 10^3/uL (0.1-1.4); ABSOLUTE NEUT (AUTO) 3.5 10^3/uL (1.7-8.2); BASOPHILS % (AUTO) 0.4 % (0-2); EOSINOPHILS % (AUTO) 1.8 % (0-6); HEMATOCRIT 36.6 % (36.0-47.0); HEMOGLOBIN 12.2 g/dL (12.0-15.5); LYMPHOCYTES % (AUTO) 33.7 % (13-45); MEAN CORPUSCULAR HEMOGLOBIN 29.1 pg (27.0-33.4); MEAN CORPUSCULAR HGB CONC 33.4 g/dL (32.0-36.0); MEAN CORPUSCULAR VOLUME 87 fl (80-97); MONOCYTES % (AUTO) 5.8 % (3-13); RED CELL DISTRIBUTION WIDTH 12.7 % (11.5-14.0); SEGMENTED NEUTROPHILS % (AUTO) 58.3 % (42-78); WHITE BLOOD COUNT 6.1 10^3/uL (4.0-10.5)
[2017-01-24 06:44] LABS: ANION GAP 6 (5-19); BLOOD UREA NITROGEN 14 mg/dL (7-20); CALCIUM 8.3 mg/dL (8.4-10.2); CARBON DIOXIDE 26 mmol/L (22-30); CHLORIDE 97 mmol/L (98-107); CREATININE RESULT 0.65 mg/dL (0.52-1.25); GLUCOSE 104 mg/dL (75-110); POTASSIUM 3.9 mmol/L (3.6-5.0)
--- NOTE | 2017-01-24 10:26 | PDOC PROGRESS REPORT ---
Subjective Progress Note for:: 01/24/17 Subjective:: Complains of anxiety but is somewhat sedated also. She denies any shortness of breath or chest pain. She is alert and oriented to person and place but confused to time. Physical Exam Vital Signs: Temp Pulse Resp BP Pulse Ox 97.7 F 87 16 104/51 L 93 01/24/17 07:18 01/24/17 09:12 01/24/17 09:12 01/24/17 07:18 01/24/17 09:12 Intake & Output 01/23/17 01/24/17 01/25/17 06:59 06:59 06:59 Intake Total 1630 4356 Output Total 0 Balance 1630 4356 Weight 75.2 kg 75.2 kg General appearance: PRESENT: no acute distress Eye exam: PRESENT: conjunctiva pink. ABSENT: scleral icterus Mouth exam: PRESENT: moist, tongue midline Neck exam: ABSENT: JVD Respiratory exam: PRESENT: clear to auscultation karla. ABSENT: rales, rhonchi, wheezes Cardiovascular exam: PRESENT: RRR. ABSENT: diastolic murmur, rubs, systolic murmur GI/Abdominal exam: PRESENT: normal bowel sounds, soft. ABSENT: distended, guarding, mass, organolmegaly, rebound, tenderness Extremities exam: ABSENT: calf tenderness, clubbing, pedal edema Neurological exam: PRESENT: alert, awake, oriented to person, oriented to place , CN II-XII grossly intact. ABSENT: oriented to time, oriented to situation, motor sensory deficit Psychiatric exam: PRESENT: flat affect Results Laboratory Results: 01/24/17 06:05 01/24/17 06:05 01/24/17 01/24/17 06:05 06:05 WBC 6.1 RBC 4.20 Hgb 12.2 Hct 36.6 MCV 87 MCH 29.1 MCHC 33.4 RDW 12.7 Plt Count 110 L Seg Neutrophils % 58.3 Lymphocytes % 33.7 Monocytes % 5.8 Eosinophils % 1.8 Basophils % 0.4 Absolute Neutrophils 3.5 Absolute Lymphocytes 2.1 Absolute Monocytes 0.4 Absolute Eosinophils 0.1 Absolute Basophils 0.0 Sodium 129.0 L Potassium 3.9 Chloride 97 L Carbon Dioxide 26 Anion Gap 6 BUN 14 Creatinine 0.65 Est GFR ( Amer) > 60 Est GFR (Non-Af Amer) > 60 Glucose 104 Calcium 8.3 L Impressions: Chest X-Ray 01/22/17 00:00 IMPRESSION: NO ACUTE RADIOGRAPHIC FINDING IN THE CHEST. Assessment & Plan - Diagnosis (1) Wernickes encephalopathy Is this a current diagnosis for this admission?: YesPlan: Patient has a long history of alcohol abuse. She is alert and oriented currently to person but not to place or time. We'll continue with the Ativan, thiamine and folate. (2) Acute alcohol intoxication Qualifiers: Complication of substance-induced condition: with delirium Qualified Code(s): F10.121 - Alcohol abuse with intoxication delirium Is this a current diagnosis for this admission?: YesPlan: Treating this with Ativan when necessary. (3) Hypokalemia Is this a current diagnosis for this admission?: YesPlan: Resolved (4) Hyponatremia Is this a current diagnosis for this admission?: YesPlan: Most likely secondary to the alcohol use. We'll continue the IV fluids and monitor - Time Time Spent with patient: 25-34 minutes - Inpatient Certification Medical Necessity: Need Close Monitoring Due to Risk of Patient Decompensation, Need For IV Fluids
[2017-01-24] MEDS: DOCUSATE SODIUM 100 MG CAPSULE PO SCH ×2 (15:15→18:42)
[2017-01-24] MEDS: ONDANSETRON HCL INJ/PF 4 MG/2 ML SDV IV PRN (19:47)
[2017-01-25] MEDS: ACETAMINOPHEN 325 MG TABLET PO PRN ×2 (01:35→23:17)
[2017-01-25] MEDS: LORAZEPAM INJ 2 MG/1 ML VIAL IV PRN ×7 (01:35→22:41)
[2017-01-25] MEDS: HEPARIN SOD (PORCINE) 5,000 UNIT/ML 1 ML SYRINGE SUBCUT SCH ×3 (06:22→21:29)
[2017-01-25 06:55] LABS: ABSOLUTE EOSINOPHILS # (AUTO) 0.1 10^3/uL (0.0-0.6); ABSOLUTE LYMPHOCYTES (AUTO) 2.2 10^3/uL (0.5-4.7); ABSOLUTE MONOCYTES (AUTO) 0.4 10^3/uL (0.1-1.4); ABSOLUTE NEUT (AUTO) 2.8 10^3/uL (1.7-8.2); BASOPHILS % (AUTO) 0.4 % (0-2); EOSINOPHILS % (AUTO) 2.1 % (0-6); HEMATOCRIT 37.3 % (36.0-47.0); HEMOGLOBIN 12.6 g/dL (12.0-15.5); HGB HCT DIFFERENCE 0.5; LYMPHOCYTES % (AUTO) 39.7 % (13-45); MEAN CORPUSCULAR HEMOGLOBIN 29.6 pg (27.0-33.4); MEAN CORPUSCULAR HGB CONC 33.8 g/dL (32.0-36.0); MEAN CORPUSCULAR VOLUME 88 fl (80-97); MONOCYTES % (AUTO) 7.6 % (3-13); RED BLOOD COUNT 4.25 10^6/uL (3.72-5.28); RED CELL DISTRIBUTION WIDTH 12.8 % (11.5-14.0); SEGMENTED NEUTROPHILS % (AUTO) 50.2 % (42-78); WHITE BLOOD COUNT 5.6 10^3/uL (4.0-10.5)
[2017-01-25 07:17] LABS: ANION GAP 5 (5-19); BLOOD UREA NITROGEN 8 mg/dL (7-20); CALCIUM 8.8 mg/dL (8.4-10.2); CARBON DIOXIDE 31 mmol/L (22-30); CHLORIDE 97 mmol/L (98-107); CREATININE RESULT 0.66 mg/dL (0.52-1.25); GLUCOSE 96 mg/dL (75-110); MAGNESIUM 1.8 mg/dL (1.6-2.3); POTASSIUM 3.8 mmol/L (3.6-5.0); SODIUM 132.8 mmol/L (137-145)
[2017-01-25] MEDS: DOCUSATE SODIUM 100 MG CAPSULE PO SCH ×2 (09:54→18:46)
--- NOTE | 2017-01-25 13:07 | PDOC PROGRESS REPORT ---
Subjective Progress Note for:: 01/25/17 Subjective:: Patient complains of leg pain on the left. Patient does not remember what happened to her. She is somehow short of breath but denies significant coughing. No chest pain. No chills or fever. Physical Exam Vital Signs: Temp Pulse Resp BP Pulse Ox 97.2 F 90 16 113/71 97 01/25/17 10:15 01/25/17 12:30 01/25/17 12:30 01/25/17 10:15 01/25/17 12:30 Intake & Output 01/24/17 01/25/17 01/26/17 06:59 06:59 06:59 Intake Total 4356 2230 Balance 4356 2230 Weight 75.2 kg 79.4 kg General appearance: PRESENT: no acute distress, cooperative, obese Head exam: PRESENT: normocephalic Eye exam: PRESENT: EOMI Neck exam: ABSENT: JVD Respiratory exam: PRESENT: clear to auscultation karla. ABSENT: rhonchi, wheezes Cardiovascular exam: PRESENT: RRR GI/Abdominal exam: PRESENT: soft. ABSENT: distended, tenderness Extremities exam: PRESENT: other - Occasional ecchymosis noted in the left. ABSENT: pedal edema Neurological exam: PRESENT: alert, awake, oriented to situation - Slow to respond however Skin exam: PRESENT: dry, warm. ABSENT: cyanosis Results Laboratory Results: 01/25/17 06:35 01/25/17 06:35 01/25/17 01/25/17 06:35 06:35 WBC 5.6 RBC 4.25 Hgb 12.6 Hct 37.3 MCV 88 MCH 29.6 MCHC 33.8 RDW 12.8 Plt Count 108 L Seg Neutrophils % 50.2 Lymphocytes % 39.7 Monocytes % 7.6 Eosinophils % 2.1 Basophils % 0.4 Absolute Neutrophils 2.8 Absolute Lymphocytes 2.2 Absolute Monocytes 0.4 Absolute Eosinophils 0.1 Absolute Basophils 0.0 Sodium 132.8 L Potassium 3.8 Chloride 97 L Carbon Dioxide 31 H Anion Gap 5 BUN 8 Creatinine 0.66 Est GFR ( Amer) > 60 Est GFR (Non-Af Amer) > 60 Glucose 96 Calcium 8.8 Magnesium 1.8 Impressions: Chest X-Ray 01/22/17 00:00 IMPRESSION: NO ACUTE RADIOGRAPHIC FINDING IN THE CHEST. Assessment & Plan - Diagnosis (1) Wernickes encephalopathy Is this a current diagnosis for this admission?: Yes (2) Hypokalemia Is this a current diagnosis for this admission?: Yes (3) Hyponatremia Is this a current diagnosis for this admission?: Yes (4) Hypophosphatemia Is this a current diagnosis for this admission?: Yes (5) Chronic alcohol abuse Is this a current diagnosis for this admission?: Yes (6) Hypertension Qualifiers: Hypertension type: essential hypertension Qualified Code(s): I10 - Essential (primary) hypertension Is this a current diagnosis for this admission?: Yes (7) COPD (chronic obstructive pulmonary disease) Qualifiers: COPD type: unspecified COPD Qualified Code(s): J44.9 - Chronic obstructive pulmonary disease, unspecified Is this a current diagnosis for this admission?: Yes (8) ADHD (attention deficit hyperactivity disorder) Qualifiers: Attention deficit-hyperactivity disorder type: unspecified Qualified Code(s): F90.9 - Attention-deficit hyperactivity disorder, unspecified type Is this a current diagnosis for this admission?: Yes - Time Time Spent with patient: 25-34 minutes - Plan Summary Plan Summary: We will obtain chest x-ray, as well as lower extremity x-ray on the left. I will start patient on high dose of thiamine and monitor the patient. Monitor and replace electrolytes.
[2017-01-25] MEDS: THIAMINE HCL 100 MG TABLET PO SCH ×2 (16:41→21:25)
[2017-01-25] MEDS: FOLIC ACID 1 MG TABLET PO SCH (18:46)
[2017-01-26] MEDS: HEPARIN SOD (PORCINE) 5,000 UNIT/ML 1 ML SYRINGE SUBCUT SCH ×3 (05:02→21:00)
[2017-01-26] MEDS: THIAMINE HCL 100 MG TABLET PO SCH ×3 (05:58→21:00)
[2017-01-26] MEDS: LORAZEPAM INJ 2 MG/1 ML VIAL IV PRN ×2 (05:58→08:38)
[2017-01-26 08:09] LABS: ANION GAP 5 (5-19); BLOOD UREA NITROGEN 11 mg/dL (7-20); CARBON DIOXIDE 33 mmol/L (22-30); CHLORIDE 100 mmol/L (98-107); CREATININE RESULT 0.71 mg/dL (0.52-1.25); GLUCOSE 88 mg/dL (75-110); MAGNESIUM 1.7 mg/dL (1.6-2.3); PHOSPHORUS 2.2 mg/dL (2.5-4.5); POTASSIUM 4.3 mmol/L (3.6-5.0); SODIUM 137.5 mmol/L (137-145)
[2017-01-26] MEDS: ACETAMINOPHEN 325 MG TABLET PO PRN (08:37)
--- NOTE | 2017-01-26 10:43 | PDOC PROGRESS REPORT ---
Subjective Progress Note for:: 01/26/17 Subjective:: Patient complains of leg pain on the left and back pain and right. Patient does not remember what happened to her. Denies shortness of breath or coughing. No chest pain. No chills or fever. Staff reports patient is more awake and responsive. Still gets the Ativan as needed. Physical Exam Vital Signs: Temp Pulse Resp BP Pulse Ox 97.5 F 82 18 113/62 100 01/26/17 07:30 01/26/17 07:30 01/26/17 07:30 01/26/17 07:30 01/26/17 07:30 Intake & Output 01/25/17 01/26/17 01/27/17 06:59 06:59 06:59 Intake Total 2230 2255 Balance 2230 2255 Weight 79.4 kg 79.4 kg General appearance: PRESENT: no acute distress, cooperative Head exam: PRESENT: normocephalic Eye exam: PRESENT: EOMI Mouth exam: PRESENT: moist, neck supple Neck exam: ABSENT: JVD Respiratory exam: PRESENT: clear to auscultation karla. ABSENT: wheezes Cardiovascular exam: PRESENT: RRR. ABSENT: gallop GI/Abdominal exam: PRESENT: hypoactive bowel sounds, soft. ABSENT: distended Extremities exam: ABSENT: pedal edema Neurological exam: PRESENT: alert, awake, other - Appropriately responds to questions Skin exam: PRESENT: dry, warm. ABSENT: cyanosis Results Laboratory Results: 01/25/17 06:35 01/26/17 06:48 01/26/17 06:48 Sodium 137.5 Potassium 4.3 Chloride 100 Carbon Dioxide 33 H Anion Gap 5 BUN 11 Creatinine 0.71 Est GFR ( Amer) > 60 Est GFR (Non-Af Amer) > 60 Glucose 88 Calcium 9.0 Phosphorus 2.2 L Magnesium 1.7 Impressions: Chest X-Ray 01/25/17 00:00 IMPRESSION: NO ACUTE RADIOGRAPHIC FINDING IN THE CHEST. Knee X-Ray 01/25/17 00:00 IMPRESSION: No acute fracture Tibia/Fibula X-Ray 01/25/17 00:00 IMPRESSION: Transverse lucency in the distal fibula at the level of the ankle mortise. This could be a hairline nondisplaced fracture. Three-view left ankle films could be useful for followup. Assessment & Plan - Diagnosis (1) Wernickes encephalopathy Is this a current diagnosis for this admission?: Yes (2) Hypokalemia Is this a current diagnosis for this admission?: Yes (3) Hyponatremia Is this a current diagnosis for this admission?: Yes (4) Hypophosphatemia Is this a current diagnosis for this admission?: Yes (5) Chronic alcohol abuse Is this a current diagnosis for this admission?: Yes (6) Hypertension Qualifiers: Hypertension type: essential hypertension Qualified Code(s): I10 - Essential (primary) hypertension Is this a current diagnosis for this admission?: Yes (7) COPD (chronic obstructive pulmonary disease) Qualifiers: COPD type: unspecified COPD Qualified Code(s): J44.9 - Chronic obstructive pulmonary disease, unspecified Is this a current diagnosis for this admission?: Yes (8) ADHD (attention deficit hyperactivity disorder) Qualifiers: Attention deficit-hyperactivity disorder type: unspecified Qualified Code(s): F90.9 - Attention-deficit hyperactivity disorder, unspecified type Is this a current diagnosis for this admission?: Yes - Time Time Spent with patient: 15-24 minutes - Plan Summary Plan Summary: We are going to discontinue intravenous Ativan and given oral as needed. We are going to decrease the dose as well. In the meantime we will do x-ray of the hip and lumbosacral spine and likewise a complete ankle x-ray for possible fracture noted on 2 views on the left. Continue high-dose thiamine as patient is showing some improvement.
[2017-01-26] MEDS: DOCUSATE SODIUM 100 MG CAPSULE PO SCH ×2 (10:50→17:07)
[2017-01-26] MEDS: LORAZEPAM 1 MG TABLET PO PRN ×2 (14:21→21:00)
[2017-01-26] MEDS: ONDANSETRON HCL INJ/PF 4 MG/2 ML SDV IV PRN ×2 (14:27→21:05)
[2017-01-26] MEDS: MULTIVITAMIN TABLET PO SCH (17:07)
[2017-01-26] MEDS: FOLIC ACID 1 MG TABLET PO SCH (17:07)
[2017-01-26] MEDS ORDERED: LORAZEPAM INJ 2 MG/1 ML VIAL ONE (18:53)
[2017-01-26] MEDS ORDERED: LORAZEPAM INJ 2 MG/1 ML VIAL IV ONE (19:15)
[2017-01-27] MEDS: LORAZEPAM 1 MG TABLET PO PRN ×2 (03:14→09:32)
[2017-01-27] MEDS: HEPARIN SOD (PORCINE) 5,000 UNIT/ML 1 ML SYRINGE SUBCUT SCH ×3 (05:56→22:12)
[2017-01-27] MEDS: THIAMINE HCL 100 MG TABLET PO SCH ×3 (05:56→22:12)
[2017-01-27] MEDS: ACETAMINOPHEN 325 MG TABLET PO PRN (08:41)
[2017-01-27] MEDS: DOCUSATE SODIUM 100 MG CAPSULE PO SCH ×2 (09:31→17:54)
--- NOTE | 2017-01-27 10:59 | PDOC PROGRESS REPORT ---
Subjective Progress Note for:: 01/27/17 Subjective:: Patient reportedly doing well according to the sitter. Patient able to ambulate , eat breakfast earlier. Patient with a lot of anxiety upon waking up, but resting comfortably in bed without any distress earlier. Patient reports she lives in a motel and cannot live alone, this has been going on for the past few weeks. Taking Ativan as needed outpatient for anxiety. Physical Exam Vital Signs: Temp Pulse Resp BP Pulse Ox 98.2 F 91 16 112/70 100 01/27/17 07:48 01/27/17 07:48 01/27/17 07:48 01/27/17 07:48 01/27/17 07:48 Intake & Output 01/26/17 01/27/17 01/28/17 06:59 06:59 06:59 Intake Total 2255 1320 Balance 2255 1320 Weight 79.4 kg 76.4 kg General appearance: PRESENT: no acute distress, other - Anxious Head exam: PRESENT: normocephalic Eye exam: PRESENT: EOMI Mouth exam: PRESENT: moist, neck supple Neck exam: ABSENT: JVD Respiratory exam: PRESENT: clear to auscultation karla Cardiovascular exam: PRESENT: RRR GI/Abdominal exam: PRESENT: soft. ABSENT: distended, tenderness Extremities exam: ABSENT: pedal edema Neurological exam: PRESENT: alert, awake, oriented to situation Skin exam: PRESENT: dry, warm. ABSENT: cyanosis Results Laboratory Results: 01/25/17 06:35 01/26/17 06:48 Impressions: Chest X-Ray 01/25/17 00:00 IMPRESSION: NO ACUTE RADIOGRAPHIC FINDING IN THE CHEST. Knee X-Ray 01/25/17 00:00 IMPRESSION: No acute fracture Tibia/Fibula X-Ray 01/25/17 00:00 IMPRESSION: Transverse lucency in the distal fibula at the level of the ankle mortise. This could be a hairline nondisplaced fracture. Three-view left ankle films could be useful for followup. Ankle X-Ray 01/26/17 00:00 IMPRESSION: No evidence for acute fracture dislocation. There is some bony deformity of the 5th metatarsal presumably related to previous trauma. Other findings as noted above Hip/Pelvis X-Ray 01/26/17 00:00 IMPRESSION: NEGATIVE STUDY OF THE RIGHT HIP. NO RADIOGRAPHIC EVIDENCE OF ACUTE INJURY. Lumbar Spine X-Ray 01/26/17 00:00 IMPRESSION: Degenerative changes as noted above Assessment & Plan - Diagnosis (1) Wernickes encephalopathy Is this a current diagnosis for this admission?: Yes (2) Hypokalemia Is this a current diagnosis for this admission?: Yes (3) Hyponatremia Is this a current diagnosis for this admission?: Yes (4) Hypophosphatemia Is this a current diagnosis for this admission?: Yes (5) Chronic alcohol abuse Is this a current diagnosis for this admission?: Yes (6) Hypertension Qualifiers: Hypertension type: essential hypertension Qualified Code(s): I10 - Essential (primary) hypertension Is this a current diagnosis for this admission?: Yes (7) COPD (chronic obstructive pulmonary disease) Qualifiers: COPD type: unspecified COPD Qualified Code(s): J44.9 - Chronic obstructive pulmonary disease, unspecified Is this a current diagnosis for this admission?: Yes (8) ADHD (attention deficit hyperactivity disorder) Qualifiers: Attention deficit-hyperactivity disorder type: unspecified Qualified Code(s): F90.9 - Attention-deficit hyperactivity disorder, unspecified type Is this a current diagnosis for this admission?: Yes - Time Time Spent with patient: 25-34 minutes - Plan Summary Plan Summary: Consult office workforce planner for placement in a rest home. Discontinue Ativan as needed begin buspirone, Zoloft. We will continue to monitor. No hallucinations reported nor any tremors noted to suggest continued withdrawal symptoms.
[2017-01-27] MEDS: IPRATROPIUM/ALBUTEROL 0.5-2.5 MG/3 ML AMPUL NEB PRN (11:21)
[2017-01-27] MEDS ORDERED: TUBERCULIN,PURIF.PROT.DERIV. 5 TU/0.1 ML TEST 1 ML VIAL ID ONE (12:00)
[2017-01-27] MEDS ORDERED: SERTRALINE HCL 50 MG TABLET PO ONE (12:00)
[2017-01-27] MEDS: FOLIC ACID 1 MG TABLET PO SCH (17:56)
[2017-01-27] MEDS: MULTIVITAMIN TABLET PO SCH (17:57)
[2017-01-27] MEDS ORDERED: MAGNESIUM CITRATE 296 ML BOTTLE PO ONE (19:00)
[2017-01-27] MEDS: BUSPIRONE HCL 10 MG TABLET PO SCH (22:12)
[2017-01-28] MEDS: ONDANSETRON HCL INJ/PF 4 MG/2 ML SDV IV PRN ×2 (00:15→16:02)
[2017-01-28] MEDS: THIAMINE HCL 100 MG TABLET PO SCH ×2 (06:11→13:56)
[2017-01-28] MEDS: HEPARIN SOD (PORCINE) 5,000 UNIT/ML 1 ML SYRINGE SUBCUT SCH ×3 (06:11→22:29)
[2017-01-28] MEDS: DOCUSATE SODIUM 100 MG CAPSULE PO SCH ×2 (09:35→17:37)
[2017-01-28] MEDS: BUSPIRONE HCL 10 MG TABLET PO SCH ×2 (09:35→22:29)
[2017-01-28] MEDS: SERTRALINE HCL 50 MG TABLET PO SCH (09:36)
--- NOTE | 2017-01-28 11:07 | PSYCHOLOGICAL NOTE ---
Psych Note - Psych Note Psych Note: Patient presented to the emergency department via EMS after being found unresponsive just prior to arrival. Per EMS patient was found at the [facility] with two large empty bottles of vodka and asleep on the bed, when roused patient was able to say "alcohol". Clinician was unable to engage the patient. Clinician notes patient received medication about 45 minutes prior, and was sleeping. evaluation will occur at a later time.
--- NOTE | 2017-01-28 11:16 | PSYCHOLOGICAL NOTE ---
Psych Note - Psych Note Psych Note: Patient presented to the emergency department via EMS after being found unresponsive just prior to arrival. Per EMS patient was found at the [facility] with two large empty bottles of vodka and asleep on the bed, when roused patient was able to say "alcohol". Patient states that she needs assisted living facility. She continued to state that she is "unable to live alone." Patient confirmed that she knows that she has been drinking and states that she has no memory of what happened. Clinician encouraged the patient to seek treatment for substance abuse, patient states that she is going to quit but she "Needs to take care of these other issues first." She stated that she is covered in bruises. Patient refused out patient and in patient treatment referral lists stating she has "made up her mind" and will be going to assisted living facility. 291.9 (F 10.99) Unspecified Alcohol-Related Disorder Impression\\plan: Patient is psychiatrically cleared for discharge. Patient disclosed alcohol abuse however has demonstrated little motivation in following through with sobriety in the past. Patient is verbalizing that she wants to go into an assisted living facility and worry about sobriety after. Patient is recommended to seek in patient or out patient treatment for her alcoholism; however, patient refused referral lists. Dr. Palacios was consulted on the care and management of this patient; attending physician is in agreement with recommendations and disposition.
[2017-01-28] MEDS: ACETAMINOPHEN 325 MG TABLET PO PRN (12:37)
[2017-01-28] MEDS ORDERED: LORAZEPAM 0.5 MG TABLET PO PRN (12:54)
--- NOTE | 2017-01-28 15:38 | PDOC PROGRESS REPORT ---
Subjective Progress Note for:: 01/28/17 Subjective:: Patient is more awake and engaging in conversation after intravenous Ativan has been discontinued. No reported temperature spikes, respiratory distress, restlessness and agitation. Patient had a good bowel movement with the oral laxative. Patient has had generalized aches and pain and feeling anxious during the conversation today. Physical Exam Vital Signs: Temp Pulse Resp BP Pulse Ox 98.3 F 88 16 109/58 L 100 01/28/17 11:09 01/28/17 14:00 01/28/17 11:09 01/28/17 11:09 01/28/17 11:09 Intake & Output 01/27/17 01/28/17 01/29/17 06:59 06:59 06:59 Intake Total 1320 1100 240 Balance 1320 1100 240 Weight 76.4 kg 72.3 kg General appearance: PRESENT: no acute distress, other - Minimally anxious Head exam: PRESENT: normocephalic Eye exam: PRESENT: EOMI Mouth exam: PRESENT: moist, neck supple Neck exam: ABSENT: JVD Respiratory exam: PRESENT: clear to auscultation karla. ABSENT: rhonchi, wheezes Cardiovascular exam: PRESENT: RRR. ABSENT: gallop, tachycardia GI/Abdominal exam: PRESENT: hypoactive bowel sounds, soft. ABSENT: distended Extremities exam: ABSENT: pedal edema Neurological exam: PRESENT: alert, awake, oriented to situation Psychiatric exam: ABSENT: agitated Focused psych exam: ABSENT: restlessness Skin exam: PRESENT: dry, warm. ABSENT: cyanosis Results Laboratory Results: 01/25/17 06:35 01/26/17 06:48 Impressions: Chest X-Ray 01/25/17 00:00 IMPRESSION: NO ACUTE RADIOGRAPHIC FINDING IN THE CHEST. Knee X-Ray 01/25/17 00:00 IMPRESSION: No acute fracture Tibia/Fibula X-Ray 01/25/17 00:00 IMPRESSION: Transverse lucency in the distal fibula at the level of the ankle mortise. This could be a hairline nondisplaced fracture. Three-view left ankle films could be useful for followup. Ankle X-Ray 01/26/17 00:00 IMPRESSION: No evidence for acute fracture dislocation. There is some bony deformity of the 5th metatarsal presumably related to previous trauma. Other findings as noted above Hip/Pelvis X-Ray 01/26/17 00:00 IMPRESSION: NEGATIVE STUDY OF THE RIGHT HIP. NO RADIOGRAPHIC EVIDENCE OF ACUTE INJURY. Lumbar Spine X-Ray 01/26/17 00:00 IMPRESSION: Degenerative changes as noted above Assessment & Plan - Diagnosis (1) Wernickes encephalopathy Is this a current diagnosis for this admission?: Yes (2) Hypokalemia Is this a current diagnosis for this admission?: Yes (3) Hyponatremia Is this a current diagnosis for this admission?: Yes (4) Hypophosphatemia Is this a current diagnosis for this admission?: Yes (5) Chronic alcohol abuse Is this a current diagnosis for this admission?: Yes (6) Hypertension Qualifiers: Hypertension type: essential hypertension Qualified Code(s): I10 - Essential (primary) hypertension Is this a current diagnosis for this admission?: Yes (7) COPD (chronic obstructive pulmonary disease) Qualifiers: COPD type: unspecified COPD Qualified Code(s): J44.9 - Chronic obstructive pulmonary disease, unspecified Is this a current diagnosis for this admission?: Yes (8) ADHD (attention deficit hyperactivity disorder) Qualifiers: Attention deficit-hyperactivity disorder type: unspecified Qualified Code(s): F90.9 - Attention-deficit hyperactivity disorder, unspecified type Is this a current diagnosis for this admission?: Yes - Time Time Spent with patient: 15-24 minutes - Plan Summary Plan Summary: We will resume by the Ativan but on the lower dose. We will continue Zoloft and BuSpar. Awaiting placement.
[2017-01-28] MEDS: LORAZEPAM 0.5 MG TABLET PO PRN (16:40)
[2017-01-28] MEDS: MULTIVITAMIN TABLET PO SCH (17:37)
[2017-01-28] MEDS: FOLIC ACID 1 MG TABLET PO SCH (17:38)
[2017-01-29] MEDS: LORAZEPAM 0.5 MG TABLET PO PRN ×2 (00:39→08:33)
[2017-01-29] MEDS: HEPARIN SOD (PORCINE) 5,000 UNIT/ML 1 ML SYRINGE SUBCUT SCH ×3 (06:34→22:25)
[2017-01-29] MEDS: ONDANSETRON HCL INJ/PF 4 MG/2 ML SDV IV PRN ×2 (07:54→22:25)
[2017-01-29] MEDS: SERTRALINE HCL 50 MG TABLET PO SCH (09:20)
[2017-01-29] MEDS: DOCUSATE SODIUM 100 MG CAPSULE PO SCH ×2 (09:20→17:04)
[2017-01-29] MEDS: BUSPIRONE HCL 10 MG TABLET PO SCH ×2 (09:20→22:25)
[2017-01-29] MEDS: THIAMINE HCL 100 MG TABLET PO SCH (09:20)
[2017-01-29] MEDS ORDERED: METOCLOPRAMIDE HCL INJ/PF 10 MG/2 ML SDV ONE (09:39)
[2017-01-29] MEDS: METOCLOPRAMIDE HCL INJ/PF 10 MG/2 ML SDV IV PRN (09:39)
--- NOTE | 2017-01-29 11:51 | PDOC PROGRESS REPORT ---
Subjective Progress Note for:: 01/29/17 Subjective:: Patient resting in bed and comfortable according to staff. Sometimes patient will be anxious but able to get up and ambulate. Patient complains of anxiety, generalized aches and pain, nausea. No shortness of breath, chills or fever. Feels dizzy. Staff however reports patient able to walk around. Physical Exam Vital Signs: Temp Pulse Resp BP Pulse Ox 97.4 F 91 17 106/50 L 97 01/29/17 11:22 01/29/17 11:22 01/29/17 11:22 01/29/17 11:22 01/29/17 11:22 Intake & Output 01/28/17 01/29/17 01/30/17 06:59 06:59 07:59 Intake Total 1100 1140 120 Balance 1100 1140 120 Weight 72.3 kg 65.6 kg General appearance: PRESENT: no acute distress, cooperative Head exam: PRESENT: normocephalic Eye exam: PRESENT: EOMI Mouth exam: PRESENT: moist, neck supple Neck exam: ABSENT: JVD Respiratory exam: PRESENT: clear to auscultation karla Cardiovascular exam: PRESENT: RRR. ABSENT: gallop GI/Abdominal exam: PRESENT: soft. ABSENT: distended Extremities exam: PRESENT: other - Trace pretibial edema Neurological exam: PRESENT: alert, awake, oriented to situation Skin exam: PRESENT: dry, warm. ABSENT: cyanosis Results Laboratory Results: 01/25/17 06:35 01/26/17 06:48 Impressions: Chest X-Ray 01/25/17 00:00 IMPRESSION: NO ACUTE RADIOGRAPHIC FINDING IN THE CHEST. Knee X-Ray 01/25/17 00:00 IMPRESSION: No acute fracture Tibia/Fibula X-Ray 01/25/17 00:00 IMPRESSION: Transverse lucency in the distal fibula at the level of the ankle mortise. This could be a hairline nondisplaced fracture. Three-view left ankle films could be useful for followup. Ankle X-Ray 01/26/17 00:00 IMPRESSION: No evidence for acute fracture dislocation. There is some bony deformity of the 5th metatarsal presumably related to previous trauma. Other findings as noted above Hip/Pelvis X-Ray 01/26/17 00:00 IMPRESSION: NEGATIVE STUDY OF THE RIGHT HIP. NO RADIOGRAPHIC EVIDENCE OF ACUTE INJURY. Lumbar Spine X-Ray 01/26/17 00:00 IMPRESSION: Degenerative changes as noted above Assessment & Plan - Diagnosis (1) Wernickes encephalopathy Is this a current diagnosis for this admission?: Yes (2) Hypokalemia Is this a current diagnosis for this admission?: Yes (3) Hyponatremia Is this a current diagnosis for this admission?: Yes (4) Hypophosphatemia Is this a current diagnosis for this admission?: Yes (5) Chronic alcohol abuse Is this a current diagnosis for this admission?: Yes (6) Hypertension Qualifiers: Hypertension type: essential hypertension Qualified Code(s): I10 - Essential (primary) hypertension Is this a current diagnosis for this admission?: Yes (7) COPD (chronic obstructive pulmonary disease) Qualifiers: COPD type: unspecified COPD Qualified Code(s): J44.9 - Chronic obstructive pulmonary disease, unspecified Is this a current diagnosis for this admission?: Yes (8) ADHD (attention deficit hyperactivity disorder) Qualifiers: Attention deficit-hyperactivity disorder type: unspecified Qualified Code(s): F90.9 - Attention-deficit hyperactivity disorder, unspecified type Is this a current diagnosis for this admission?: Yes - Time Time Spent with patient: 15-24 minutes - Plan Summary Plan Summary: Continue Ativan. Try Klonopin. Begin intravenous fluids. Continue other medications and awaiting rest home bed.
[2017-01-29] MEDS: CLONAZEPAM 1 MG TABLET PO PRN (12:18)
[2017-01-29] MEDS: NORMAL SALINE 1000 ML 1,000 ML IV PRN ×2 (12:19→22:25)
[2017-01-29] MEDS: FOLIC ACID 1 MG TABLET PO SCH (17:03)
[2017-01-29] MEDS: MULTIVITAMIN TABLET PO SCH (17:04)
[2017-01-30] MEDS: CLONAZEPAM 1 MG TABLET PO PRN (00:19)
[2017-01-30] MEDS: METOCLOPRAMIDE HCL INJ/PF 10 MG/2 ML SDV IV PRN (06:22)
[2017-01-30] MEDS: HEPARIN SOD (PORCINE) 5,000 UNIT/ML 1 ML SYRINGE SUBCUT SCH ×3 (06:22→21:49)
[2017-01-30] MEDS: DOCUSATE SODIUM 100 MG CAPSULE PO SCH ×2 (09:40→17:59)
[2017-01-30] MEDS: THIAMINE HCL 100 MG TABLET PO SCH (09:40)
[2017-01-30] MEDS: SERTRALINE HCL 50 MG TABLET PO SCH (09:40)
[2017-01-30] MEDS: ACETAMINOPHEN 325 MG TABLET PO PRN ×2 (09:41→13:50)
[2017-01-30] MEDS: BUSPIRONE HCL 10 MG TABLET PO SCH ×2 (09:41→21:49)
[2017-01-30] MEDS: LORAZEPAM 0.5 MG TABLET PO PRN ×2 (12:21→18:03)
[2017-01-30] MEDS: NORMAL SALINE 1000 ML 1,000 ML IV PRN (13:44)
--- NOTE | 2017-01-30 15:33 | PDOC PROGRESS REPORT ---
Subjective Progress Note for:: 01/30/17 Subjective:: Patient reports Klonopin does not help. No reported temperature spikes, shortness of breath, respiratory distress, nausea or vomiting. No reported agitation or restlessness. Patient still feels anxious. Physical Exam Vital Signs: Temp Pulse Resp BP Pulse Ox 97.9 F 82 17 97/43 L 98 01/30/17 15:09 01/30/17 15:09 01/30/17 15:09 01/30/17 15:09 01/30/17 15:09 Intake & Output 01/29/17 01/30/17 01/31/17 05:59 06:59 06:59 Intake Total 1190 Balance 1190 Weight General appearance: PRESENT: no acute distress Head exam: PRESENT: normocephalic Eye exam: PRESENT: EOMI Mouth exam: PRESENT: moist, neck supple Neck exam: ABSENT: JVD Respiratory exam: PRESENT: clear to auscultation karla Cardiovascular exam: PRESENT: RRR. ABSENT: gallop GI/Abdominal exam: PRESENT: soft. ABSENT: distended, tenderness Extremities exam: ABSENT: pedal edema Neurological exam: PRESENT: alert, awake, oriented to situation Skin exam: PRESENT: dry, warm. ABSENT: cyanosis Results Laboratory Results: 01/25/17 06:35 01/26/17 06:48 Impressions: Chest X-Ray 01/25/17 00:00 IMPRESSION: NO ACUTE RADIOGRAPHIC FINDING IN THE CHEST. Knee X-Ray 01/25/17 00:00 IMPRESSION: No acute fracture Tibia/Fibula X-Ray 01/25/17 00:00 IMPRESSION: Transverse lucency in the distal fibula at the level of the ankle mortise. This could be a hairline nondisplaced fracture. Three-view left ankle films could be useful for followup. Ankle X-Ray 01/26/17 00:00 IMPRESSION: No evidence for acute fracture dislocation. There is some bony deformity of the 5th metatarsal presumably related to previous trauma. Other findings as noted above Hip/Pelvis X-Ray 01/26/17 00:00 IMPRESSION: NEGATIVE STUDY OF THE RIGHT HIP. NO RADIOGRAPHIC EVIDENCE OF ACUTE INJURY. Lumbar Spine X-Ray 01/26/17 00:00 IMPRESSION: Degenerative changes as noted above Assessment & Plan - Diagnosis (1) Wernickes encephalopathy Is this a current diagnosis for this admission?: Yes (2) Hypokalemia Is this a current diagnosis for this admission?: Yes (3) Hyponatremia Is this a current diagnosis for this admission?: Yes (4) Hypophosphatemia Is this a current diagnosis for this admission?: Yes (5) Chronic alcohol abuse Is this a current diagnosis for this admission?: Yes (6) Hypertension Qualifiers: Hypertension type: essential hypertension Qualified Code(s): I10 - Essential (primary) hypertension Is this a current diagnosis for this admission?: Yes (7) COPD (chronic obstructive pulmonary disease) Qualifiers: COPD type: unspecified COPD Qualified Code(s): J44.9 - Chronic obstructive pulmonary disease, unspecified Is this a current diagnosis for this admission?: Yes (8) ADHD (attention deficit hyperactivity disorder) Qualifiers: Attention deficit-hyperactivity disorder type: unspecified Qualified Code(s): F90.9 - Attention-deficit hyperactivity disorder, unspecified type Is this a current diagnosis for this admission?: Yes - Time Time Spent with patient: 15-24 minutes - Plan Summary Plan Summary: Discontinue Klonopin. We resume low-dose Ativan. Continue supportive care. Continue under anxiolytics. Awaiting placement.
[2017-01-30] MEDS: MULTIVITAMIN TABLET PO SCH (17:59)
[2017-01-30] MEDS: FOLIC ACID 1 MG TABLET PO SCH (17:59)
[2017-01-31] MEDS: LORAZEPAM 0.5 MG TABLET PO PRN ×4 (00:03→19:32)
[2017-01-31] MEDS: NORMAL SALINE 1000 ML 1,000 ML IV PRN (05:08)
[2017-01-31] MEDS: HEPARIN SOD (PORCINE) 5,000 UNIT/ML 1 ML SYRINGE SUBCUT SCH ×3 (05:08→22:19)
[2017-01-31] MEDS: DOCUSATE SODIUM 100 MG CAPSULE PO SCH ×2 (09:22→18:08)
[2017-01-31] MEDS: THIAMINE HCL 100 MG TABLET PO SCH (09:22)
[2017-01-31] MEDS: SERTRALINE HCL 50 MG TABLET PO SCH (09:22)
[2017-01-31] MEDS: BUSPIRONE HCL 10 MG TABLET PO SCH (09:22)
[2017-01-31 09:30] LABS: PHOSPHORUS 4.1 mg/dL (2.5-4.5); POTASSIUM 4.3 mmol/L (3.6-5.0)
[2017-01-31] MEDS: METOCLOPRAMIDE HCL INJ/PF 10 MG/2 ML SDV IV PRN (13:21)
--- NOTE | 2017-01-31 17:30 | PDOC PROGRESS REPORT ---
Subjective Progress Note for:: 01/31/17 Subjective:: Patient is feeling better in terms of his anxiety but having trouble sleeping. Has taken Seroquel before and helps. Denies any shortness of breath, vomiting , chills or fever, diarrhea. Generalized body aches and pain and nausea which are chronic. Physical Exam Vital Signs: Temp Pulse Resp BP Pulse Ox 98.0 F 89 16 102/52 L 99 01/31/17 14:55 01/31/17 14:55 01/31/17 14:55 01/31/17 14:55 01/31/17 14:55 Intake & Output 01/30/17 01/31/17 02/01/17 06:59 06:59 06:59 Intake Total 3278 Balance 3278 Weight 68.6 kg General appearance: PRESENT: no acute distress, cooperative Head exam: PRESENT: normocephalic Eye exam: PRESENT: EOMI Mouth exam: PRESENT: moist, neck supple Neck exam: ABSENT: JVD Respiratory exam: PRESENT: clear to auscultation karla. ABSENT: rhonchi, wheezes Cardiovascular exam: PRESENT: RRR. ABSENT: gallop GI/Abdominal exam: PRESENT: normal bowel sounds, soft. ABSENT: distended Extremities exam: ABSENT: pedal edema Neurological exam: PRESENT: alert, awake, oriented to situation Skin exam: PRESENT: dry, warm. ABSENT: cyanosis Results Laboratory Results: 01/25/17 06:35 01/31/17 08:56 01/31/17 01/31/17 06:35 08:56 Potassium Cancelled 4.3 Phosphorus Cancelled 4.1 Magnesium Cancelled 2.0 Impressions: Chest X-Ray 01/25/17 00:00 IMPRESSION: NO ACUTE RADIOGRAPHIC FINDING IN THE CHEST. Knee X-Ray 01/25/17 00:00 IMPRESSION: No acute fracture Tibia/Fibula X-Ray 01/25/17 00:00 IMPRESSION: Transverse lucency in the distal fibula at the level of the ankle mortise. This could be a hairline nondisplaced fracture. Three-view left ankle films could be useful for followup. Ankle X-Ray 01/26/17 00:00 IMPRESSION: No evidence for acute fracture dislocation. There is some bony deformity of the 5th metatarsal presumably related to previous trauma. Other findings as noted above Hip/Pelvis X-Ray 01/26/17 00:00 IMPRESSION: NEGATIVE STUDY OF THE RIGHT HIP. NO RADIOGRAPHIC EVIDENCE OF ACUTE INJURY. Lumbar Spine X-Ray 01/26/17 00:00 IMPRESSION: Degenerative changes as noted above Assessment & Plan - Diagnosis (1) Wernickes encephalopathy Is this a current diagnosis for this admission?: Yes (2) Hypokalemia Is this a current diagnosis for this admission?: Yes (3) Hyponatremia Is this a current diagnosis for this admission?: Yes (4) Hypophosphatemia Is this a current diagnosis for this admission?: Yes (5) Chronic alcohol abuse Is this a current diagnosis for this admission?: Yes (6) Hypertension Qualifiers: Hypertension type: essential hypertension Qualified Code(s): I10 - Essential (primary) hypertension Is this a current diagnosis for this admission?: Yes (7) COPD (chronic obstructive pulmonary disease) Qualifiers: COPD type: unspecified COPD Qualified Code(s): J44.9 - Chronic obstructive pulmonary disease, unspecified Is this a current diagnosis for this admission?: Yes (8) ADHD (attention deficit hyperactivity disorder) Qualifiers: Attention deficit-hyperactivity disorder type: unspecified Qualified Code(s): F90.9 - Attention-deficit hyperactivity disorder, unspecified type Is this a current diagnosis for this admission?: Yes - Time Time Spent with patient: 15-24 minutes - Plan Summary Plan Summary: We will discontinue BuSpar and begin seroquel. Patient is homeless, able to be accepted in an assisted living likely in 48 hours as per maintenance planner. Awaiting transfer Medicaid.
[2017-01-31] MEDS: FOLIC ACID 1 MG TABLET PO SCH (18:08)
[2017-01-31] MEDS: MULTIVITAMIN TABLET PO SCH (18:08)
[2017-01-31] MEDS: QUETIAPINE FUMARATE 25 MG TABLET PO SCH (22:19)
[2017-02-01] MEDS: LORAZEPAM 0.5 MG TABLET PO PRN ×3 (05:49→18:14)
[2017-02-01] MEDS: HEPARIN SOD (PORCINE) 5,000 UNIT/ML 1 ML SYRINGE SUBCUT SCH ×3 (05:49→21:55)
[2017-02-01] MEDS: DOCUSATE SODIUM 100 MG CAPSULE PO SCH ×2 (09:28→17:41)
[2017-02-01] MEDS: SERTRALINE HCL 50 MG TABLET PO SCH (09:28)
[2017-02-01] MEDS: THIAMINE HCL 100 MG TABLET PO SCH (09:29)
--- NOTE | 2017-02-01 14:30 | PDOC PROGRESS REPORT ---
Subjective Progress Note for:: 02/01/17 Subjective:: Complains of some mild abdominal pain in the epigastric area. Physical Exam Vital Signs: Temp Pulse Resp BP Pulse Ox 98.4 F 72 15 107/56 L 99 02/01/17 11:15 02/01/17 11:15 02/01/17 11:15 02/01/17 11:15 02/01/17 11:15 Intake & Output 01/31/17 02/01/17 02/02/17 06:59 06:59 06:59 Intake Total 3278 4331 Output Total 1920 Balance 3278 2411 Weight 68.6 kg 68.8 kg General appearance: PRESENT: no acute distress Eye exam: PRESENT: conjunctiva pink. ABSENT: scleral icterus Mouth exam: PRESENT: moist, tongue midline Neck exam: ABSENT: carotid bruit, JVD, lymphadenopathy, thyromegaly Respiratory exam: PRESENT: clear to auscultation karla. ABSENT: rales, rhonchi, wheezes Cardiovascular exam: PRESENT: RRR. ABSENT: diastolic murmur, rubs, systolic murmur GI/Abdominal exam: PRESENT: normal bowel sounds, soft, tenderness - Mild tenderness in epigastric area but no guarding or rebound.. ABSENT: distended, guarding, mass, organolmegaly, rebound Extremities exam: ABSENT: calf tenderness, clubbing, pedal edema Neurological exam: PRESENT: alert, awake, oriented to person, oriented to place , oriented to time, oriented to situation Psychiatric exam: PRESENT: appropriate affect Skin exam: PRESENT: dry, intact, warm. ABSENT: cyanosis, rash Results Laboratory Results: 01/25/17 06:35 01/31/17 08:56 Impressions: Chest X-Ray 01/25/17 00:00 IMPRESSION: NO ACUTE RADIOGRAPHIC FINDING IN THE CHEST. Knee X-Ray 01/25/17 00:00 IMPRESSION: No acute fracture Tibia/Fibula X-Ray 01/25/17 00:00 IMPRESSION: Transverse lucency in the distal fibula at the level of the ankle mortise. This could be a hairline nondisplaced fracture. Three-view left ankle films could be useful for followup. Ankle X-Ray 01/26/17 00:00 IMPRESSION: No evidence for acute fracture dislocation. There is some bony deformity of the 5th metatarsal presumably related to previous trauma. Other findings as noted above Hip/Pelvis X-Ray 01/26/17 00:00 IMPRESSION: NEGATIVE STUDY OF THE RIGHT HIP. NO RADIOGRAPHIC EVIDENCE OF ACUTE INJURY. Lumbar Spine X-Ray 01/26/17 00:00 IMPRESSION: Degenerative changes as noted above Assessment & Plan - Diagnosis (1) Wernickes encephalopathy Is this a current diagnosis for this admission?: YesPlan: Patient has a long history of alcohol abuse. She is alert and oriented. We'll continue with the Ativan, thiamine and folate. Awaiting placement in assisted living. (2) Acute alcohol intoxication Qualifiers: Complication of substance-induced condition: with delirium Qualified Code(s): F10.121 - Alcohol abuse with intoxication delirium Is this a current diagnosis for this admission?: YesPlan: Resolved. (3) Hypokalemia Is this a current diagnosis for this admission?: YesPlan: Resolved (4) Hyponatremia Is this a current diagnosis for this admission?: YesPlan: Most likely secondary to the alcohol use. It has resolved. - Time Time Spent with patient: 25-34 minutes - Inpatient Certification Medical Necessity: Need Close Monitoring Due to Risk of Patient Decompensation - Plan Summary Plan Summary: Awaiting on assisted living placement
[2017-02-01] MEDS: MULTIVITAMIN TABLET PO SCH (17:40)
[2017-02-01] MEDS: FOLIC ACID 1 MG TABLET PO SCH (17:40)
[2017-02-01] MEDS: QUETIAPINE FUMARATE 25 MG TABLET PO SCH (21:56)
[2017-02-02] MEDS: HEPARIN SOD (PORCINE) 5,000 UNIT/ML 1 ML SYRINGE SUBCUT SCH ×3 (06:20→21:34)
[2017-02-02] MEDS: LORAZEPAM 0.5 MG TABLET PO PRN ×3 (07:00→19:21)
[2017-02-02] MEDS: SERTRALINE HCL 50 MG TABLET PO SCH (10:17)
[2017-02-02] MEDS: DOCUSATE SODIUM 100 MG CAPSULE PO SCH ×2 (10:17→17:22)
[2017-02-02] MEDS: PREDNISONE 20 MG TABLET PO SCH (10:18)
[2017-02-02] MEDS: THIAMINE HCL 100 MG TABLET PO SCH (10:18)
--- NOTE | 2017-02-02 10:57 | PDOC PROGRESS REPORT ---
Subjective Progress Note for:: 02/02/17 Subjective:: Complains of pain in the right S1 nerve distribution. Physical Exam Vital Signs: Temp Pulse Resp BP Pulse Ox 97.6 F 70 16 102/46 L 99 02/02/17 07:33 02/02/17 07:33 02/02/17 07:33 02/02/17 07:33 02/02/17 07:33 Intake & Output 02/01/17 02/02/17 02/03/17 06:59 06:59 06:59 Intake Total 4331 2395 Output Total 1920 1150 Balance 2411 1245 Weight 68.8 kg 69.1 kg General appearance: PRESENT: no acute distress Eye exam: PRESENT: conjunctiva pink. ABSENT: scleral icterus Mouth exam: PRESENT: moist, tongue midline Neck exam: ABSENT: JVD Respiratory exam: PRESENT: clear to auscultation karla. ABSENT: rales, rhonchi, wheezes Cardiovascular exam: PRESENT: RRR. ABSENT: diastolic murmur, rubs, systolic murmur GI/Abdominal exam: PRESENT: normal bowel sounds, soft. ABSENT: distended, guarding, mass, organolmegaly, rebound, tenderness Extremities exam: ABSENT: calf tenderness, clubbing, pedal edema Neurological exam: PRESENT: alert, awake, oriented to person, oriented to place , oriented to time, oriented to situation, CN II-XII grossly intact. ABSENT: motor sensory deficit Psychiatric exam: PRESENT: appropriate affect Skin exam: PRESENT: dry, intact, warm. ABSENT: cyanosis, rash Results Laboratory Results: 01/25/17 06:35 01/31/17 08:56 Impressions: Chest X-Ray 01/25/17 00:00 IMPRESSION: NO ACUTE RADIOGRAPHIC FINDING IN THE CHEST. Knee X-Ray 01/25/17 00:00 IMPRESSION: No acute fracture Tibia/Fibula X-Ray 01/25/17 00:00 IMPRESSION: Transverse lucency in the distal fibula at the level of the ankle mortise. This could be a hairline nondisplaced fracture. Three-view left ankle films could be useful for followup. Ankle X-Ray 01/26/17 00:00 IMPRESSION: No evidence for acute fracture dislocation. There is some bony deformity of the 5th metatarsal presumably related to previous trauma. Other findings as noted above Hip/Pelvis X-Ray 01/26/17 00:00 IMPRESSION: NEGATIVE STUDY OF THE RIGHT HIP. NO RADIOGRAPHIC EVIDENCE OF ACUTE INJURY. Lumbar Spine X-Ray 01/26/17 00:00 IMPRESSION: Degenerative changes as noted above Assessment & Plan - Diagnosis (1) Wernickes encephalopathy Is this a current diagnosis for this admission?: YesPlan: Patient has a long history of alcohol abuse. She is alert and oriented. We'll continue with the Ativan, thiamine and folate. Awaiting placement in assisted living. (2) Acute alcohol intoxication Qualifiers: Complication of substance-induced condition: with delirium Qualified Code(s): F10.121 - Alcohol abuse with intoxication delirium Is this a current diagnosis for this admission?: YesPlan: Resolved. (3) Hypokalemia Is this a current diagnosis for this admission?: YesPlan: Resolved (4) Hyponatremia Is this a current diagnosis for this admission?: YesPlan: Most likely secondary to the alcohol use. It has resolved. (5) Sciatica Is this a current diagnosis for this admission?: YesPlan: Patient has pain in the right sciatic nerve distribution. She has no neurological deficit. Will start on prednisone orally.
[2017-02-02] MEDS: FOLIC ACID 1 MG TABLET PO SCH (17:21)
[2017-02-02] MEDS: MULTIVITAMIN TABLET PO SCH (17:21)
[2017-02-02] MEDS: QUETIAPINE FUMARATE 25 MG TABLET PO SCH (21:33)
[2017-02-03] MEDS: LORAZEPAM 0.5 MG TABLET PO PRN ×4 (04:30→19:39)
[2017-02-03] MEDS: HEPARIN SOD (PORCINE) 5,000 UNIT/ML 1 ML SYRINGE SUBCUT SCH ×3 (05:20→19:39)
[2017-02-03] MEDS: PREDNISONE 20 MG TABLET PO SCH (10:17)
[2017-02-03] MEDS: THIAMINE HCL 100 MG TABLET PO SCH (10:17)
[2017-02-03] MEDS: DOCUSATE SODIUM 100 MG CAPSULE PO SCH ×2 (10:17→17:16)
[2017-02-03] MEDS: SERTRALINE HCL 50 MG TABLET PO SCH (10:17)
--- NOTE | 2017-02-03 15:17 | PDOC PROGRESS REPORT ---
Subjective Progress Note for:: 02/03/17 Subjective:: Complains of pain in the right S1 nerve distribution but reports that it has improved with the prednisone. Physical Exam Vital Signs: Temp Pulse Resp BP Pulse Ox 97.5 F 76 16 112/65 99 02/03/17 11:32 02/03/17 11:32 02/03/17 11:32 02/03/17 11:32 02/03/17 11:32 Intake & Output 02/02/17 02/03/17 02/04/17 06:59 06:59 06:59 Intake Total 2395 990 650 Output Total 1150 500 Balance 1245 490 650 Weight 69.1 kg 70.2 kg General appearance: PRESENT: no acute distress Eye exam: PRESENT: conjunctiva pink. ABSENT: scleral icterus Mouth exam: PRESENT: moist, tongue midline Neck exam: ABSENT: JVD Respiratory exam: PRESENT: clear to auscultation karla. ABSENT: rales, rhonchi, wheezes Cardiovascular exam: PRESENT: RRR. ABSENT: diastolic murmur, rubs, systolic murmur GI/Abdominal exam: PRESENT: normal bowel sounds, soft. ABSENT: distended, guarding, mass, organolmegaly, rebound, tenderness Extremities exam: ABSENT: calf tenderness, clubbing, pedal edema Neurological exam: PRESENT: alert, awake, oriented to person, oriented to place , oriented to time, oriented to situation, CN II-XII grossly intact. ABSENT: motor sensory deficit Psychiatric exam: PRESENT: appropriate affect Results Laboratory Results: 01/25/17 06:35 01/31/17 08:56 Impressions: Chest X-Ray 01/25/17 00:00 IMPRESSION: NO ACUTE RADIOGRAPHIC FINDING IN THE CHEST. Knee X-Ray 01/25/17 00:00 IMPRESSION: No acute fracture Tibia/Fibula X-Ray 01/25/17 00:00 IMPRESSION: Transverse lucency in the distal fibula at the level of the ankle mortise. This could be a hairline nondisplaced fracture. Three-view left ankle films could be useful for followup. Ankle X-Ray 01/26/17 00:00 IMPRESSION: No evidence for acute fracture dislocation. There is some bony deformity of the 5th metatarsal presumably related to previous trauma. Other findings as noted above Hip/Pelvis X-Ray 01/26/17 00:00 IMPRESSION: NEGATIVE STUDY OF THE RIGHT HIP. NO RADIOGRAPHIC EVIDENCE OF ACUTE INJURY. Lumbar Spine X-Ray 01/26/17 00:00 IMPRESSION: Degenerative changes as noted above Assessment & Plan - Diagnosis (1) Wernickes encephalopathy Is this a current diagnosis for this admission?: YesPlan: Patient has a long history of alcohol abuse. She is alert and oriented. We'll continue with the Ativan, thiamine and folate. Awaiting placement in assisted living. (2) Acute alcohol intoxication Qualifiers: Complication of substance-induced condition: with delirium Qualified Code(s): F10.121 - Alcohol abuse with intoxication delirium Is this a current diagnosis for this admission?: YesPlan: Resolved. (3) Hypokalemia Is this a current diagnosis for this admission?: YesPlan: Resolved (4) Hyponatremia Is this a current diagnosis for this admission?: YesPlan: Most likely secondary to the alcohol use. It has resolved. (5) Sciatica Is this a current diagnosis for this admission?: YesPlan: Patient has pain in the right sciatic nerve distribution. She has no neurological deficit. Continue prednisone orally. - Time Time Spent with patient: 15-24 minutes - Inpatient Certification Medical Necessity: Need Close Monitoring Due to Risk of Patient Decompensation - Plan Summary Plan Summary: Awaiting placement in assisted living.
[2017-02-03] MEDS: FOLIC ACID 1 MG TABLET PO SCH (17:16)
[2017-02-03] MEDS: MULTIVITAMIN TABLET PO SCH (17:16)
[2017-02-03] MEDS: QUETIAPINE FUMARATE 25 MG TABLET PO SCH (21:04)
[2017-02-04] MEDS: HEPARIN SOD (PORCINE) 5,000 UNIT/ML 1 ML SYRINGE SUBCUT SCH ×2 (05:42→13:32)
[2017-02-04] MEDS: LORAZEPAM 0.5 MG TABLET PO PRN ×3 (07:22→15:28)
[2017-02-04] MEDS: SERTRALINE HCL 50 MG TABLET PO SCH (10:32)
[2017-02-04] MEDS: THIAMINE HCL 100 MG TABLET PO SCH (10:32)
[2017-02-04] MEDS: PREDNISONE 20 MG TABLET PO SCH (10:32)
[2017-02-04] MEDS: DOCUSATE SODIUM 100 MG CAPSULE PO SCH (10:32)
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
[2017-02-04 16:04] VITALS: BP 110/58
== END 2017-02-04 16:38 | disposition home health service (06) | DRG 641 ==
LOC: ER 19:59 → EH 22:18 → 4W 01-23 03:25
PROVIDERS: ADMIT Internal Medicine; ATTEND Internal Medicine
PROC: 3E0F73Z Introduction of Anti-inflammatory into Respiratory Tract, Via Natural or Artificial Opening (ICD-10-PCS; principal; 2017-01-23)
DX: E51.2 Wernicke's encephalopathy (principal); E87.1 Hypo-osmolality and hyponatremia; F10.121 Alcohol abuse with intoxication delirium; E87.2 Acidosis; E87.6 Hypokalemia; E78.5 Hyperlipidemia, unspecified; J44.9 Chronic obstructive pulmonary disease, unspecified; I10 Essential (primary) hypertension; M19.90 Unspecified osteoarthritis, unspecified site; F90.9 Attention-deficit hyperactivity disorder, unspecified type; M54.31 Sciatica, right side; E83.39 Other disorders of phosphorus metabolism; F31.9 Bipolar disorder, unspecified; F17.210 Nicotine dependence, cigarettes, uncomplicated; Z79.899 Other long term (current) drug therapy; Z60.2 Problems related to living alone; Y90.8 Blood alcohol level of 240 mg/100 ml or more; Z88.7 Allergy status to serum and vaccine; Z91.040 Latex allergy status; Z91.013 Allergy to seafood; Z83.3 Family history of diabetes mellitus; Z82.49 Family history of ischemic heart disease and other diseases of the circulatory system
CPT/HCPCS: 36415; 71010; 72110; 80048; 80053; 80307; 81001; 82550; 82962; 83735; 83930; 83935; 84100; 84132; 84484; 85025; 99285; J1644; J2060; J2405; J2765; J3411; J3475; J3480; J3490; J7030; J7512; J7620

== ENCOUNTER 2017-02-18 10:58 | Emergency (ER) | payer MEDICAID ==
--- NOTE | 2017-02-18 11:15 | ER Document Report ---
ED Medical Screen (RME) - General Stated Complaint: FEET SWELLING Notes: Patient complains of feet swelling since Tuesday. Also complains of being out of her medications and unable to get refills. Denies chest pain or shortness of breath. I have greeted and performed a rapid initial assessment of this patient. A comprehensive ED assessment and evaluation of the patient, analysis of test results and completion of the medical decision making process will be conducted by additional ED providers. TRAVEL OUTSIDE OF THE [place] IN LAST 30 DAYS: No - Related Data Allergies/Adverse Reactions: Tetanus Vaccines and Toxoid [Tetanus] Allergy (Severe, Verified 02/18/17 11:13) Latex, Natural Rubber Allergy (Verified 02/18/17 11:13) shellfish derived Allergy (Verified 02/18/17 11:13) Past Medical History - Past Medical History Cardiac Medical History: Reports: Hx Hypertension Pulmonary Medical History: Reports: Hx COPD, Hx Pneumonia - at age 15 Denies: Hx Tuberculosis Renal/ Medical History: Denies: Hx Peritoneal Dialysis Musculoskeltal Medical History: Reports Hx Arthritis, Reports Hx Musculoskeletal Deformity Psychiatric Medical History: Reports: Hx Attention Deficit Hyperactivity Disorder, Hx Bipolar Disorder Past Surgical History: Reports: Hx Appendectomy, Hx Tonsillectomy - Immunizations Immunizations up to date: No Hx Diphtheria, Pertussis, Tetanus Vaccination: No Physical Exam - Vital signs Vitals: Temp Pulse Resp BP Pulse Ox 98.4 F 85 20 126/58 H 96 02/18/17 11:11 02/18/17 11:11 02/18/17 11:11 02/18/17 11:11 02/18/17 11:11 - Cardiovascular Rhythm: Regular Heart sounds: Normal auscultation Course - Vital Signs Vital signs: Temp Pulse Resp BP Pulse Ox 98.4 F 85 20 126/58 H 96 02/18/17 11:11 02/18/17 11:11 02/18/17 11:11 02/18/17 11:11 02/18/17 11:11
[2017-02-18 12:24] LABS: ABSOLUTE BASOPHILS # (AUTO) 0.1 10^3/uL (0.0-0.2); ABSOLUTE EOSINOPHILS # (AUTO) 0.3 10^3/uL (0.0-0.6); ABSOLUTE LYMPHOCYTES (AUTO) 2.9 10^3/uL (0.5-4.7); ABSOLUTE MONOCYTES (AUTO) 0.8 10^3/uL (0.1-1.4); ABSOLUTE NEUT (AUTO) 5.8 10^3/uL (1.7-8.2); BASOPHILS % (AUTO) 0.8 % (0-2); EOSINOPHILS % (AUTO) 3.1 % (0-6); HEMATOCRIT 34.1 % (36.0-47.0); HEMOGLOBIN 11.4 g/dL (12.0-15.5); HGB HCT DIFFERENCE 0.1; LYMPHOCYTES % (AUTO) 29.6 % (13-45); MEAN CORPUSCULAR HGB CONC 33.4 g/dL (32.0-36.0); MEAN CORPUSCULAR VOLUME 90 fl (80-97); SEGMENTED NEUTROPHILS % (AUTO) 58.5 % (42-78); WHITE BLOOD COUNT 9.9 10^3/uL (4.0-10.5)
[2017-02-18 12:46] LABS: ALANINE AMINOTRANSFERASE 40 U/L (9-52); ALBUMIN 3.8 g/dL (3.5-5.0); ALKALINE PHOSPHATASE 86 U/L (38-126); ANION GAP 10 (5-19); ASPARTATE AMINO TRANSFERASE 21 U/L (14-36); BILIRUBIN,DIRECT 0.1 mg/dL (0.0-0.4); BILIRUBIN,TOTAL 0.3 mg/dL (0.2-1.3); BLOOD UREA NITROGEN 33 mg/dL (7-20); CALCIUM 9.7 mg/dL (8.4-10.2); CARBON DIOXIDE 26 mmol/L (22-30); CHLORIDE 108 mmol/L (98-107); CREATININE RESULT 0.88 mg/dL (0.52-1.25); GLUCOSE 95 mg/dL (75-110); TOTAL PROTEIN 5.9 g/dL (6.3-8.2)
[2017-02-18 13:11] LABS: APPEARANCE,URINE CLEAR; BILIRUBIN,URINE NEGATIVE (NEGATIVE); GLUCOSE, URINE NEGATIVE (NEGATIVE); KETONES,URINE NEGATIVE (NEGATIVE); LEUKOCYTE ESTERASE,URINE NEGATIVE (NEGATIVE); NITRITE,URINE NEGATIVE (NEGATIVE); PROTEIN,URINE NEGATIVE (NEGATIVE); URINE SPECIFIC GRAVITY 1.015; UROBILINOGEN,URINE NEGATIVE mg/dL (<2.0)
--- NOTE | 2017-02-18 13:36 | ER Document Report ---
ED Extremity Problem, Lower - General Chief Complaint: Feet Swelling Stated Complaint: FEET SWELLING Time seen by provider: 13:00 Mode of Arrival: Ambulatory Information source: Patient Notes: 56 yo female with bilateral lower leg swelling. [facility] No longer drinking. Saw dr. lebron who would not refill her meds. Is taking prednisone daily for her left hip and leg pain prescribed by dr. clinton the hospitalist. No chest pain or shortness of breath. swelling goes down with elevation but does not completely resolve. TRAVEL OUTSIDE OF THE [place] IN LAST 30 DAYS: No - Related Data Allergies/Adverse Reactions: Tetanus Vaccines and Toxoid [Tetanus] Allergy (Severe, Verified 02/18/17 11:13) Latex, Natural Rubber Allergy (Verified 02/18/17 11:13) shellfish derived Allergy (Verified 02/18/17 11:13) Past Medical History - General Information source: Patient - Social History Smoking Status: Current Every Day Smoker Chew tobacco use (# tins/day): No Frequency of alcohol use: None Drug Abuse: None Lives with: [facility] - [facility] Family History: Reviewed & Not Pertinent, CAD, DM, Hyperlipidemia, Hypertension Patient has suicidal ideation: No Patient has homicidal ideation: No - Past Medical History Cardiac Medical History: Reports: Hx Hypertension Pulmonary Medical History: Reports: Hx COPD, Hx Pneumonia - at age 15 Renal/ Medical History: Denies: Hx Peritoneal Dialysis Musculoskeltal Medical History: Reports Hx Arthritis, Reports Hx Musculoskeletal Deformity Psychiatric Medical History: Reports: Hx Attention Deficit Hyperactivity Disorder, Hx Bipolar Disorder Past Surgical History: Reports: Hx Appendectomy, Hx Tonsillectomy - Immunizations Immunizations up to date: No Hx Diphtheria, Pertussis, Tetanus Vaccination: No Review of Systems - Review of Systems Constitutional: No symptoms reported EENT: No symptoms reported Cardiovascular: No symptoms reported Respiratory: No symptoms reported Gastrointestinal: No symptoms reported Genitourinary: No symptoms reported Female Genitourinary: No symptoms reported Musculoskeletal: See HPI Skin: No symptoms reported Hematologic/Lymphatic: No symptoms reported Neurological/Psychological: No symptoms reported Physical Exam - Vital signs Vitals: Temp Pulse Resp BP Pulse Ox 98.4 F 85 20 126/58 H 96 02/18/17 11:11 02/18/17 11:11 02/18/17 11:11 02/18/17 11:11 02/18/17 11:11 Interpretation: Normal - General General appearance: Appears well, Alert - HEENT Head: Normocephalic, Atraumatic Eyes: Normal Pupils: PERRL Neck: Supple - Respiratory Respiratory status: No respiratory distress Chest status: Nontender Breath sounds: Normal Chest palpation: Normal - Cardiovascular Rhythm: Regular Heart sounds: Normal auscultation Murmur: No - Abdominal Inspection: Normal Distension: No distension Bowel sounds: Normal Tenderness: Nontender Organomegaly: No organomegaly - Back Back: Normal, Nontender - Extremities General upper extremity: Normal inspection, Nontender, Normal color, Normal ROM , Normal temperature General lower extremity: Nontender, Edema - pitting-mild to both lower legs, mostly feet, N/V intact. 2+ dp's, Normal color, Normal ROM, Normal temperature, Normal weight bearing. No: Maye's sign - Neurological Neuro grossly intact: Yes Cognition: Normal Orientation: AAOx4 [place] Coma Scale Eye Opening: Spontaneous [place] Coma Scale Verbal: Oriented Mi Coma Scale Motor: Obeys Commands Mi Coma Scale Total: 15 Speech: Normal Motor strength normal: LUE, RUE, LLE, RLE Sensory: Normal - Psychological Associated symptoms: Normal affect, Normal mood - Skin Skin Temperature: Warm Skin Moisture: Dry Skin Color: Normal Course - Re-evaluation Re-evalutation: 02/18/17 13:[address] Mcbride said it is okay to stop the prednisone that [facility] has been giving her 10mg daily since discharge. This dosing was not consistant with what dr. clinton wanted (per our phone consult). Chest x-ray and labs are normal. i suspect the swelling is due to the prednisone. 02/18/17 13:35 02/18/17 13:35 - Vital Signs Vital signs: Temp Pulse Resp BP Pulse Ox 97.9 F 79 18 128/71 H 98 02/18/17 14:11 02/18/17 14:11 02/18/17 14:11 02/18/17 14:11 02/18/17 14:11 - Laboratory Result Diagrams: 02/18/17 12:03 02/18/17 12:03 Laboratory results interpreted by me: 02/18/17 02/18/17 12:03 12:03 Hgb 11.4 L Hct 34.1 L RDW 17.0 H Chloride 108 H BUN 33 H Total Protein 5.9 L Discharge - Discharge Clinical Impression: bilateral peripheral edema Condition: Good Disposition: HOME, SELF-CARE Instructions: Edema, Peripheral ([facility]) Additional Instructions: stop the prednisone see dr. lebron for your medication to er any concerns Please complete the patient satisfaction survey if you get one, and return it.. If you do not receive a survey, then you can go to the [facility] website, [email or web address] and place your comments about your very good care. Thank you very much. It was a pleasure being your medical provider today. Referrals: JUAN CARLOS LEBRON MD [ACTIVE STAFF] - Follow up as needed
[2017-02-18 14:12] VITALS: BP 128/71
== END 2017-02-18 14:09 | disposition home or self-care (01) ==
LOC: ER 10:58
DX: R60.0 Localized edema (principal); M25.552 Pain in left hip; M79.605 Pain in left leg; I10 Essential (primary) hypertension; J44.9 Chronic obstructive pulmonary disease, unspecified; F17.200 Nicotine dependence, unspecified, uncomplicated; Z79.52 Long term (current) use of systemic steroids; Z88.7 Allergy status to serum and vaccine; Z91.040 Latex allergy status; Z91.013 Allergy to seafood
CPT/HCPCS: 36415; 71020; 80053; 81001; 83880; 85025; 99284

== ENCOUNTER → 2017-04-05 | Outpatient (CLI) | payer MEDICAID | LOC: SP 12:58 | PROVIDERS: ATTEND Internal Medicine Cardiovascular Disease | DX: R09.89 Other specified symptoms and signs involving the circulatory and respiratory systems (principal) | CPT/HCPCS: 93880 ==

== ENCOUNTER 2017-04-07 05:18 | Inpatient (IN) | payer MEDICAID ==
[2017-03-17 13:02] LABS: HEMATOCRIT 39.5 % (36.0-47.0); HEMOGLOBIN 13.1 g/dL (12.0-15.5); HGB HCT DIFFERENCE -0.2; MEAN CORPUSCULAR HEMOGLOBIN 29.5 pg (27.0-33.4); MEAN CORPUSCULAR HGB CONC 33.2 g/dL (32.0-36.0); MEAN CORPUSCULAR VOLUME 89 fl (80-97); RED BLOOD COUNT 4.45 10^6/uL (3.72-5.28); RED CELL DISTRIBUTION WIDTH 14.3 % (11.5-14.0); WHITE BLOOD COUNT 7.4 10^3/uL (4.0-10.5)
[2017-03-17 13:07] LABS: APPEARANCE,URINE CLEAR; BILIRUBIN,URINE NEGATIVE (NEGATIVE); GLUCOSE, URINE NEGATIVE (NEGATIVE); KETONES,URINE NEGATIVE (NEGATIVE); LEUKOCYTE ESTERASE,URINE NEGATIVE (NEGATIVE); NITRITE,URINE NEGATIVE (NEGATIVE); PROTEIN,URINE NEGATIVE (NEGATIVE); URINE SPECIFIC GRAVITY 1.018; UROBILINOGEN,URINE NEGATIVE mg/dL (<2.0)
[2017-03-17 13:21] LABS: ANION GAP 12 (5-19); BLOOD UREA NITROGEN 23 mg/dL (7-20); CALCIUM 9.7 mg/dL (8.4-10.2); CARBON DIOXIDE 23 mmol/L (22-30); CHLORIDE 105 mmol/L (98-107); CREATININE RESULT 0.78 mg/dL (0.52-1.25); GLUCOSE 95 mg/dL (75-110); POTASSIUM 4.7 mmol/L (3.6-5.0); SODIUM 140.3 mmol/L (137-145)
--- NOTE | 2017-03-17 14:20 | EKG REPORT ---
SEVERITY:- NORMAL ECG - SINUS RHYTHM : Confirmed by: Jared Barboza 17-Mar-2017 14:19:30
[~2017-04-07 05:18] MED LIST: BUPIVACAINE INJ/PF LIPOSOME/PF 266 MG/20 ML SDV IJ PRN; CEFAZOLIN 2 GM/D5W RTU 2 GM/50 ML RTUPB IV PRN; IBUPROFEN 800 MG/NS 250 ML IV PRN; LACTATED RINGERS 1000 ML IV PRN; LANSOPRAZOLE 15 MG TAB.RAP.DR PO PRN; LIDOCAINE 0.5% INJ-PF (5 MG/ML) 50 ML SDV SUBCUT PRN; OXYCODONE HCL SR 10 MG TABLET PO PRN; SCOPOLAMINE HYDROBROMIDE 1.5 MG PATCH.TD72 TOP PRN
[2017-04-07] MEDS ORDERED: ALBUTEROL SULFATE 0.083% NEB 2.5 MG/3 ML AMPUL NEB ONE ×2 (06:32→06:45)
[2017-04-07] MEDS ORDERED: HYDROMORPHONE HCL INJ/PF 2 MG/ML AMPULE ONE ×2 (07:11→11:24)
[2017-04-07] MEDS ORDERED: FENTANYL CITRATE INJ/PF 250 MCG/5 ML AMPULE ONE ×2 (07:11→07:12)
[2017-04-07] MEDS ORDERED: MIDAZOLAM 2 MG/2 ML INJ ONE ×2 (07:11→07:12)
[2017-04-07] MEDS ORDERED: PROPOFOL INJ 200 MG/20 ML VIAL IV ONE (07:12)
[2017-04-07] MEDS ORDERED: ACETAMINOPHEN 100 ML IV ONE (07:12)
[2017-04-07] MEDS ORDERED: BUPIVACAINE INJ/PF LIPOSOME/PF 266 MG/20 ML SDV ONE (07:14)
[2017-04-07] MEDS ORDERED: BUPIVACAINE HCL 0.5%-EPI 1:200000 INJ/PF 30 ML VIAL ONE (08:33)
[2017-04-07] MEDS ORDERED: DIPHENHYDRAMINE HCL 50 MG/ML VIAL IV PRN (08:45)
[2017-04-07] MEDS ORDERED: MEPERIDINE HCL/PF INJ 25 MG/1 ML DISP.SYRIN IV PRN (08:45)
[2017-04-07] MEDS ORDERED: PROMETHAZINE HCL INJ 25 MG/1 ML VIAL IV PRN (08:45)
[2017-04-07] MEDS ORDERED: FENTANYL CITRATE INJ/PF 100 MCG/2 ML AMPUL IV PRN ×3 (08:45)
[2017-04-07] MEDS ORDERED: LORAZEPAM INJ 2 MG/1 ML VIAL IV ONE (09:05)
[2017-04-07] MEDS ORDERED: LORAZEPAM INJ 2 MG/1 ML VIAL ONE (11:13)
[2017-04-07] MEDS ORDERED: RINGERS SOLUTION,LACTATED 1,000 ML IV PRN (11:40)
[2017-04-07] MEDS ORDERED: ONDANSETRON HCL INJ/PF 4 MG/2 ML SDV IV PRN (11:46)
[2017-04-07] MEDS ORDERED: CEFAZOLIN SODIUM 2 GM in DEXTROSE 5%-WATER 100 ML IV SCH (14:00)
[2017-04-07] MEDS: OXYCODONE-ACETAMINOPHEN 5-325 MG TABLET PO PRN ×3 (14:25→18:58)
[2017-04-07] MEDS ORDERED: DEXAMETHASONE SOD PHOSPHATE INJ 4 MG/1 ML VIAL ONE (15:53)
[2017-04-07] MEDS ORDERED: ONDANSETRON HCL INJ/PF 4 MG/2 ML SDV ONE (15:53)
[2017-04-07] MEDS ORDERED: LIDOCAINE 2% INJ-PF (20 MG/ML) 10 ML AMPUL ONE (15:53)
[2017-04-07] MEDS ORDERED: SUCCINYLCHOLINE CHLORIDE INJ 200 MG/10 ML VIAL ONE (15:53)
[2017-04-07] MEDS ORDERED: VECURONIUM BROMIDE INJ 10 MG VIAL IV ONE (15:53)
[2017-04-07] MEDS: MORPHINE SULFATE 10 MG/ML INJ IV PRN ×2 (15:53→20:56)
[2017-04-07] MEDS ORDERED: PHENYLEPHRINE HCL INJ/PF 10 MG/1 ML SDV ONE (15:53)
[2017-04-07] MEDS: CEFAZOLIN 2 GM/D5W RTU 2 GM/50 ML RTUPB IV SCH (18:29)
[2017-04-07] MEDS ORDERED: LORAZEPAM 1 MG PO SCH (22:00)
[2017-04-07] MEDS: LORAZEPAM 1 MG TABLET PO SCH (22:30)
[2017-04-07] MEDS: FLUTICASONE/SALMETEROL DISKUS 250-50 MCG/DOSE IH SCH (22:31)
[2017-04-07] MEDS: QUETIAPINE FUMARATE 25 MG TABLET PO SCH (22:37)
[2017-04-07] MEDS: SERTRALINE HCL 50 MG TABLET PO SCH (22:37)
[2017-04-08] MEDS: OXYCODONE-ACETAMINOPHEN 5-325 MG TABLET PO PRN ×3 (01:34→13:35)
[2017-04-08] MEDS: CEFAZOLIN 2 GM/D5W RTU 2 GM/50 ML RTUPB IV SCH (01:34)
[2017-04-08] MEDS: MORPHINE SULFATE 10 MG/ML INJ IV PRN ×4 (01:49→17:20)
[2017-04-08] MEDS: MULTIVITAMIN TABLET PO SCH (08:58)
[2017-04-08] MEDS: THIAMINE HCL 100 MG TABLET PO SCH (08:59)
[2017-04-08] MEDS: GABAPENTIN 300 MG CAPSULE PO SCH ×3 (08:59→17:20)
[2017-04-08] MEDS: ASPIRIN 325 MG TABLET PO SCH (08:59)
[2017-04-08] MEDS: FOLIC ACID 1 MG TABLET PO SCH (08:59)
[2017-04-08] MEDS: FLUTICASONE/SALMETEROL DISKUS 250-50 MCG/DOSE IH SCH ×2 (09:00→18:44)
--- NOTE | 2017-04-08 16:56 | PDOC PROGRESS REPORT ---
Subjective Progress Note for:: 04/08/17 Subjective:: Patient complaining of pain and swelling in her right upper extremity. No issues overnight. Patient feeling a little anxious being discharged today. Physical Exam Vital Signs: Temp Pulse Resp BP Pulse Ox 37.0 C 72 16 171/72 H 94 04/08/17 16:03 04/08/17 16:03 04/08/17 16:03 04/08/17 16:03 04/08/17 16:03 Intake & Output 04/07/17 04/08/17 04/09/17 06:59 06:59 06:59 Intake Total 0 4010 360 Output Total 780 400 Balance 0 3230 -40 General appearance: PRESENT: no acute distress Adult Front & Back Image: 1 - Dressing shows some bloody drainage. Overall proximal incision is dry clean and intact. Ecchymosis on the anterior aspect of the arm going down the elbow. She does have a good radial pulse with good sensation on the radial ulnar median nerve distribution. Results Laboratory Results: 03/17/17 12:05 03/17/17 12:05 Assessment & Plan - Plan Summary Plan Summary: 56-year-old female postop day 1 from right total shoulder arthroplasty. Patient having significant pain therefore I will keep her one more night while I increase her p.o. narcotic to better control her pain prior to discharge. Continue wearing sling, continue physical therapy and passive range of motion. Nonweightbearing. Continue aspirin 325 mg p.o. daily Plan to discharge tomorrow.
[2017-04-08] MEDS: LORAZEPAM 1 MG TABLET PO SCH (21:14)
[2017-04-08] MEDS: QUETIAPINE FUMARATE 25 MG TABLET PO SCH (21:14)
[2017-04-08] MEDS: SERTRALINE HCL 50 MG TABLET PO SCH (21:14)
[2017-04-08] MEDS: OXYCODONE HCL SR 10 MG TABLET PO SCH (21:15)
[2017-04-09] MEDS: OXYCODONE-ACETAMINOPHEN 5-325 MG TABLET PO PRN ×4 (03:28→20:28)
[2017-04-09] MEDS: FOLIC ACID 1 MG TABLET PO SCH (07:47)
[2017-04-09] MEDS: MULTIVITAMIN TABLET PO SCH (07:47)
[2017-04-09] MEDS: FLUTICASONE/SALMETEROL DISKUS 250-50 MCG/DOSE IH SCH ×2 (07:48→18:35)
[2017-04-09] MEDS: ASPIRIN 325 MG TABLET PO SCH (09:18)
[2017-04-09] MEDS: OXYCODONE HCL SR 10 MG TABLET PO SCH ×2 (09:18→21:35)
[2017-04-09] MEDS: GABAPENTIN 300 MG CAPSULE PO SCH ×3 (09:19→18:09)
[2017-04-09] MEDS: THIAMINE HCL 100 MG TABLET PO SCH (09:19)
[2017-04-09] MEDS: MORPHINE SULFATE 10 MG/ML INJ IV PRN ×2 (12:48→18:09)
--- NOTE | 2017-04-09 15:43 | PDOC PROGRESS REPORT ---
Subjective Progress Note for:: 04/09/17 Subjective:: Patient seen and evaluated on rounds today. Patient continues to have considerable pain which she states is worse with the sling. Denies numbness or tingling. Denies chest pain or shortness of breath Physical Exam Vital Signs: Temp Pulse Resp BP Pulse Ox 98.2 F 69 20 120/51 L 100 04/09/17 11:27 04/09/17 11:27 04/09/17 11:27 04/09/17 11:27 04/09/17 11:27 Intake & Output 04/08/17 04/09/17 04/10/17 06:59 06:59 06:59 Intake Total 4010 2650 840 Output Total 780 400 500 Balance 3230 2250 340 Musculoskeletal exam: PRESENT: other - Right upper extremity: Dressing clean/dry /intact. There is ecchymosis. Intact flexion-extension of the elbow however does exacerbate her pain. Notable swelling of the upper arm but compartments soft and compressible no sign of compartment syndrome Results Laboratory Results: 03/17/17 12:05 03/17/17 12:05 Impressions: Shoulder X-Ray 04/08/17 00:00 IMPRESSION: SATISFACTORY POSTOP EVALUATION RIGHT SHOULDER WITHOUT COMPLICATION IDENTIFIED. Assessment & Plan - Diagnosis (1) Status post total shoulder arthroplasty Qualifiers: Laterality: right Qualified Code(s): Z96.611 - Presence of right artificial shoulder joint Is this a current diagnosis for this admission?: YesPlan: Patient status post total shoulder arthroplasty postop day #2 patient continues to have discomfort in the we will hold her discharge until her pain is more controlled. We will continue the OxyContin and oxycodone along with morphine. Plan will be returned to [facility] which is her primary living facility once her pain is controlled but given it is a weekend patient may require hospital stay until Tuesday. Continue enteric-coated aspirin for DVT prophylaxis
[2017-04-09] MEDS: QUETIAPINE FUMARATE 25 MG TABLET PO SCH (21:34)
[2017-04-09] MEDS: LORAZEPAM 1 MG TABLET PO SCH (21:34)
[2017-04-09] MEDS: SERTRALINE HCL 50 MG TABLET PO SCH (21:35)
[2017-04-10] MEDS: OXYCODONE-ACETAMINOPHEN 5-325 MG TABLET PO PRN ×4 (05:03→19:13)
[2017-04-10] MEDS: FOLIC ACID 1 MG TABLET PO SCH (08:09)
[2017-04-10] MEDS: MULTIVITAMIN TABLET PO SCH (08:09)
[2017-04-10] MEDS: FLUTICASONE/SALMETEROL DISKUS 250-50 MCG/DOSE IH SCH ×2 (08:10→18:31)
[2017-04-10] MEDS: MORPHINE SULFATE 10 MG/ML INJ IV PRN ×3 (08:15→17:35)
[2017-04-10] MEDS: ASPIRIN 325 MG TABLET PO SCH (09:13)
[2017-04-10] MEDS: OXYCODONE HCL SR 10 MG TABLET PO SCH ×2 (09:14→21:34)
[2017-04-10] MEDS: THIAMINE HCL 100 MG TABLET PO SCH (09:14)
[2017-04-10] MEDS: GABAPENTIN 300 MG CAPSULE PO SCH ×3 (09:14→17:25)
--- NOTE | 2017-04-10 16:39 | PDOC PROGRESS REPORT ---
Subjective Subjective:: Patient seen and evaluated on rounds today. Patient continues to have considerable pain but there is improvement today the sling was adjusted. Denies chest pain or shortness of breath Physical Exam Vital Signs: Temp Pulse Resp BP Pulse Ox 98.1 F 67 18 97/48 L 96 04/10/17 15:19 04/10/17 15:19 04/10/17 15:19 04/10/17 15:19 04/10/17 15:19 Intake & Output 04/09/17 04/10/17 04/11/17 06:59 06:59 06:59 Intake Total 2650 2210 540 Output Total 400 800 Balance 2250 1410 540 Musculoskeletal exam: PRESENT: other - Right upper extremity: Dressing clean/dry /intact there is some mild redness along the wound site but no active drainage. Significant ecchymosis and bruising on the axilla and distal aspect of the wound. Notable swelling compartment however soft and compressible. No sensory deficits. Radial pulse 2+. Results Laboratory Results: 03/17/17 12:05 03/17/17 12:05 Impressions: Shoulder X-Ray 04/08/17 00:00 IMPRESSION: SATISFACTORY POSTOP EVALUATION RIGHT SHOULDER WITHOUT COMPLICATION IDENTIFIED. Assessment & Plan - Diagnosis (1) Status post total shoulder arthroplasty Qualifiers: Laterality: right Qualified Code(s): Z96.611 - Presence of right artificial shoulder joint Is this a current diagnosis for this admission?: YesPlan: Patient status post total shoulder arthroplasty postop day #2 #1 physical therapy #2 continue the OxyContin and oxycodone along with morphine. #3 continue enteric-coated aspirin for DVT prophylaxis #4 discharge to [facility] 04/11/17
[2017-04-10] MEDS: SERTRALINE HCL 50 MG TABLET PO SCH (21:34)
[2017-04-10] MEDS: LORAZEPAM 1 MG TABLET PO SCH (21:34)
[2017-04-10] MEDS: QUETIAPINE FUMARATE 25 MG TABLET PO SCH (21:49)
[2017-04-11] MEDS: ASPIRIN 325 MG TABLET PO SCH (09:00)
[2017-04-11] MEDS: FLUTICASONE/SALMETEROL DISKUS 250-50 MCG/DOSE IH SCH (09:00)
[2017-04-11] MEDS: GABAPENTIN 300 MG CAPSULE PO SCH ×2 (09:00→14:40)
[2017-04-11] MEDS: MULTIVITAMIN TABLET PO SCH (09:00)
[2017-04-11] MEDS: FOLIC ACID 1 MG TABLET PO SCH (09:01)
[2017-04-11] MEDS: OXYCODONE HCL SR 10 MG TABLET PO SCH (09:01)
[2017-04-11] MEDS: THIAMINE HCL 100 MG TABLET PO SCH (09:03)
[2017-04-11] MEDS: MORPHINE SULFATE 10 MG/ML INJ IM PRN ×2 (10:48→16:46)
[2017-04-11 12:52] VITALS: BP 106/66
[2017-04-11] MEDS: OXYCODONE-ACETAMINOPHEN 5-325 MG TABLET PO PRN ×2 (14:40→14:49)
--- NOTE | 2017-04-11 17:30 | PDOC TRANSFER SUMMARY ---
General - Admit/Disc Date/PCP Admission Date/Primary Care Provider: 04/07/17 05:18 JUAN CARLOS NOVA MD Discharge Date: 04/11/17 - Discharge Diagnosis (1) Status post total shoulder arthroplasty Is this a current diagnosis for this admission?: Yes - Additional Information Resuscitation Status: Full Code Discharge Diet: As Tolerated Discharge Activity: No Driving, Walk Frequently Home Medications: Fluticasone/Salmeterol [Advair 250-50 Diskus 14 Dose/Diskus] 1 inh IH Q12H 03/16 Folic Acid 1 mg PO QAM 03/16/17 Gabapentin 300 mg PO TID 03/16/17 Lorazepam 1 mg PO QHS 03/16/17 Multivitamin [Multivitamins] 1 each PO QAM 03/16/17 Quetiapine Fumarate [Seroquel 25 mg Tablet] 25 mg PO QHS 03/16/17 Sertraline HCl [Zoloft 50 mg Tablet] 50 mg PO QHS 03/16/17 Thiamine HCl [Thiamine 100 mg Tablet] 100 mg PO DAILY 03/16/17 Tramadol HCl [Ultram 50 mg Tablet] 50 mg PO Q6HP PRN 03/16/17 Aspirin [Aspirin 325 mg Tablet] 325 mg PO DAILY #20 tablet 04/08/17 Oxycodone HCl [Oxycontin Sr 10 mg Tablet] 10 mg PO Q12 #7 tab.sr.12h 04/08/17 Oxycodone HCl/Acetaminophen [Percocet 5-325 mg Tablet] 1 - 2 tab PO ASDIR PRN # 40 tablet 04/08/17 History of Present Illness Admission Date/PCP: 04/07/17 05:18 JUAN CARLOS NOVA MD History of Present Illness: SANDRA CORTES is a 56 year old female who is postop day 4 from right total shoulder arthroplasty. Patient underwent the procedure successfully with no issues. She did have some pain issues on postop day 1 requiring increase in her narcotics to adequately control her pain. We increased her pain medications by adding OxyContin 10 mg twice daily. Postop day 2 her pain was slowly improving but unfortunately cannot be transferred back to her assisted living facility and therefore stayed over the weekend until today Tuesday for transfer back to the [facility]. She was afebrile during her hospital stay. Her incision is dry clean and intact with bloody drainage. She is neurovascular intact in the right upper extremity. She does have ecchymosis and bruising of extremity. She is wearing the sling appropriately. She will be discharged back to her facility with range of motion of her home meds and added was Percocet and OxyContin for postoperative pain control. Hospital Course Hospital Course: SANDRA CORTES is a 56 year old female who is postop day 4 from right total shoulder arthroplasty. Patient underwent the procedure successfully with no issues. She did have some pain issues on postop day 1 requiring increase in her narcotics to adequately control her pain. We increased her pain medications by adding OxyContin 10 mg twice daily. Postop day 2 her pain was slowly improving but unfortunately cannot be transferred back to her assisted living facility and therefore stayed over the weekend until today Tuesday for transfer back to the [facility]. She was afebrile during her hospital stay. Her incision is dry clean and intact with bloody drainage. She is neurovascular intact in the right upper extremity. She does have ecchymosis and bruising of extremity. She is wearing the sling appropriately. She will be discharged back to her facility with range of motion of her home meds and added was Percocet and OxyContin for postoperative pain control. Physical Exam Vital Signs: Temp Pulse Resp BP Pulse Ox 36.9 C 77 18 106/66 95 04/11/17 12:50 04/11/17 12:50 04/11/17 12:50 04/11/17 12:50 04/11/17 12:50 Intake & Output 04/10/17 04/11/17 04/12/17 06:59 06:59 06:59 Intake Total 2210 780 Output Total 800 350 Balance 1410 430 General appearance: PRESENT: no acute distress Head exam: PRESENT: atraumatic Eye exam: PRESENT: EOMI Neck exam: PRESENT: full ROM Respiratory exam: PRESENT: symmetrical, unlabored. ABSENT: accessory muscle use , tachypnea Pulses: PRESENT: normal radial pulses Vascular exam: PRESENT: normal capillary refill GI/Abdominal exam: ABSENT: distended, firm, tenderness Musculoskeletal exam: PRESENT: other - Good pulse and capillary refill. Incision is dry clean and intact with mild bloody drainage. Ecchymosis of the right arm. Patient wearing sling in proper placement. Intact to radial ulnar median nerve distribution for both motor and sensory nerve Psychiatric exam: PRESENT: appropriate affect, normal mood Skin exam: PRESENT: normal color. ABSENT: rash Results Laboratory Results: 03/17/17 12:05 03/17/17 12:05 Impressions: Shoulder X-Ray 04/08/17 00:00 IMPRESSION: SATISFACTORY POSTOP EVALUATION RIGHT SHOULDER WITHOUT COMPLICATION IDENTIFIED. Status: Image reviewed by me Transfer Plan - Disposition Transfer Plan: Patient okay to return to [facility]. Instructed to wear the sling at all times except for pendulum exercises which she is instructed to do 3 times a day. She is allowed to shower and remove the dressing and leave it to air. Patient to be nonweightbearing of the right upper extremity. Take the medication as prescribed. Told to call us back if there is any erythema or purulent drainage. She should have an appointment 2 weeks postop from her surgery for staple removal and wound check. Qualifiers PATEINT BEING DISCHARGED WITH ANY OF THE FOLLOWING DIAGNOSIS?: No VTE patient discharged on overlapping Therapy?: Yes Plan Discharge Plan: Patient will follow-up in 2 weeks in the office. Nonweightbearing right upper extremity. Use a sling at all times except for pendulum exercises. Only passive range of motion. No lifting or carrying. OxyContin and Percocet for pain control. Aspirin daily for DVT prophylaxis. Physical therapy
--- NOTE | 2017-05-19 11:54 | Operative Report ---
Operative Report DATE OF SURGERY: 04/07/17 PREOPERATIVE DIAGNOSIS: Right shoulder arthritis POSTOPERATIVE DIAGNOSIS: Same OPERATION: Right total shoulder arthroplasty SURGEON: BRYAN ARNOLD ANESTHESIA: GA TISSUE REMOVED OR ALTERED: None COMPLICATIONS: None ESTIMATED BLOOD LOSS: 150 mL INTRAOPERATIVE FINDINGS: As above PROCEDURE: Patient received antibiotics in the preop holding area. Patient was transferred to the OR where the patient was successfully intubated. Patient then was secured in a beachchair position where the right shoulder was prepped and draped in a normal sterile surgical fashion. Once timeout was done identifying the right shoulder the correct site I proceeded to use quarter percent Marcaine with epinephrine and injected in the anticipated incision. I used a 10 blade to status my incision and then used hemostasis with electrocautery. I exposed the deltopectoral interval and proceeded to do a ductal control approach retracting the conjoined tendon medially and dissecting the cephalic vein and deltoid and retracting it laterally. I reflected the subscapularis tendon off the lesser tuberosity and tagged it with a Vicryl stitch. I proceeded to release capsule to dislocate the shoulder joint. Rotator cuff is intact and I proceeded to then use a canal finder superiorly just adjacent to the cuff. I proceeded to ream away to a head chatter and good bite. At this point and I applied the guide and pinned securely after I make sure I was satisfied with the retroversion. I did initial, and then proceeded to remove the reamer that was intramedullary and finished my humeral head cut. The pins were removed and then we proceeded to broach all the way up to the appropriate size. The humeral head was then reflected posteriorly and glenoid retractors were placed and the glenoid was exposed. Labrum and superior biceps stump was resected exposing the glenoid. I proceeded then to use the glenoid guide to drill and the center portion of the glenoid. I then proceeded to ream and I had bleeding bone. Also satisfied with the size of the glenoid and then proceeded to drill the peg holes. A trial glenoid was applied and then retractors removed and the humeral head was exposed. We placed a trial head and proceeded to test range of motion and stability. Once I was satisfied with the appropriate size used and I proceeded to remove all components. I first removed the glenoid and cemented it in and wait until cement had cured and hardened. Any excess cement was removed. I then proceeded to remove the humeral stem and placed the final stem. Of note I had placed 3 drill holes in the lesser tuberosity and place FiberWire with its appropriate needle for fixation and repair of the subscapularis tendon. Once the glenoid and stem was seated I trialed with humeral head one more time and then placed the final humeral head component. Irrigation was done at this point. The FiberWire was used then to repair the subscapularis tendon. We approximated the deltoid interval after removing the retractors and closed the subcutaneous tissue with 0 Vicryl and 2-0 Vicryl. Exparel had been injected deep and then superficially. Chinyere were used for skin. The extremity was cleaned and then Xeroform 4 x 4 dressing and ABDs pad was applied. I secured it with Medipore tape and then the drapes were removed. Patient was placed in a sling at that point was then placed in a supine position where the patient was extubated and sent to PACU in a stable condition.
== END 2017-04-11 19:12 | disposition home health service (06) | DRG 483 ==
LOC: INOR 05:18 → 5 12:17
PROVIDERS: ADMIT Orthopaedic Surgery; ATTEND Orthopaedic Surgery
PROC: 0RRJ0JZ Replacement of Right Shoulder Joint with Synthetic Substitute, Open Approach (ICD-10-PCS; principal; 2017-04-07 07:30)
DX: M19.011 Primary osteoarthritis, right shoulder (principal); J44.9 Chronic obstructive pulmonary disease, unspecified; I10 Essential (primary) hypertension; F41.9 Anxiety disorder, unspecified; F32.9 Major depressive disorder, single episode, unspecified; E66.9 Obesity, unspecified; Z68.39 Body mass index [BMI] 39.0-39.9, adult; G47.00 Insomnia, unspecified; Z79.899 Other long term (current) drug therapy; Z91.040 Latex allergy status; Z91.013 Allergy to seafood; Z88.7 Allergy status to serum and vaccine; Z88.8 Allergy status to other drugs, medicaments and biological substances; F17.210 Nicotine dependence, cigarettes, uncomplicated
CPT/HCPCS: 01630; 36415; 80048; 81001; 85027; 86850; 86900; 86901; 88304; 88311; 93005; 93010; 94640; C9290; J0131; J0330; J0690; J1100; J1170; J1741; J2060; J2250; J2270; J2370; J2405; J2704; J3010; J3490; J7050; J7120

== ENCOUNTER 2017-04-15 09:31 | Emergency (ER) | payer MEDICAID ==
--- NOTE | 2017-04-15 10:45 | ER Document Report ---
HPI - HPI Patient complains to provider of: drainage from dressing Onset: This morning Onset/Duration: Sudden Pain Level: 3 Context: Patient presents emergency department with concerns over drainage from her dressing. Reports she had a total shoulder done on April 11. She reports she has been unable to take showers since that time. She noticed her Tegaderm dressing was coming open this morning and she noted dark red old drainage. She denies other symptoms such as fever vomiting diarrhea. Reports pain shoulder since her surgery. Patient has sling in place but she has unhooked it and is moving her arm around. Associated Symptoms: None Exacerbated by: Movement Relieved by: Denies Similar symptoms previously: Yes Recently seen / treated by doctor: Yes - REPRODUCTIVE Reproductive: DENIES: : - DERM Skin Color: Normal Past Medical History - General Information source: Patient - Social History Smoking Status: Unknown if Ever Smoked Cigarette use (# per day): No Frequency of alcohol use: None Drug Abuse: None Lives with: Other - [facility] Family History: Reviewed & Not Pertinent, CAD, DM, Hyperlipidemia, Hypertension Patient has suicidal ideation: No Patient has homicidal ideation: No - Past Medical History Cardiac Medical History: Reports: Hx Hypercholesterolemia, Hx Hypertension, Hx Heart Murmur - Systolic Murmur Denies: Hx Atrial Fibrillation, Hx Congestive Heart Failure, Hx Coronary Artery Disease, Hx Heart Attack, Hx Peripheral Vascular Disease, Hx Pulmonary Embolism Pulmonary Medical History: Reports: Hx COPD, Hx Pneumonia - at age 15 Denies: Hx Asthma, Hx Bronchitis, Hx Respiratory Failure, Hx Sleep Apnea, Hx Tuberculosis Renal/ Medical History: Denies: Hx Ovarian Cysts, Hx Peritoneal Dialysis, Hx Pelvic Inflammatory Disease Malignancy Medical History: Denies: Hx Breast Cancer, Hx Cervical Cancer, Hx Lung Cancer, Hx Ovarian Cancer Musculoskeltal Medical History: Reports Hx Arthritis, Denies Hx Fibromyalgia, Denies Hx Muscular Dystrophy, Reports Hx Musculoskeletal Deformity Psychiatric Medical History: Reports: Hx Attention Deficit Hyperactivity Disorder, Hx Bipolar Disorder, Hx Depression Denies: Hx Post Traumatic Stress Disorder, Hx Schizophrenia Traumatic Medical History: Denies: Hx Fractures Past Surgical History: Reports: Hx Appendectomy, Hx Tonsillectomy. Denies: Hx Bowel Surgery, Hx Section, Hx Cholecystectomy, Hx Coronary Artery Bypass Graft, Hx Gastric Bypass Surgery, Hx Herniorrhaphy, Hx Hysterectomy, Hx Mastectomy, Hx Pacemaker, Hx Tubal Ligation - Immunizations Immunizations up to date: No Hx Diphtheria, Pertussis, Tetanus Vaccination: No Vertical Provider Document - CONSTITUTIONAL Agree With Documented VS: Yes Exam Limitations: No Limitations General Appearance: WD/WN, Mild Distress - winces when moving arm - INFECTION CONTROL TRAVEL OUTSIDE OF THE [place] IN LAST 30 DAYS: No - HEENT HEENT: Atraumatic - NECK Neck: Supple - RESPIRATORY Respiratory: No Respiratory Distress O2 Sat by Pulse Oximetry: 93 - CARDIOVASCULAR Cardiovascular: Regular Rate - MUSCULOSKELETAL/EXTREMETIES Musculoskeletal/Extremeties: Tender - r/t recent surgery - NEURO Level of Consciousness: Awake, Alert, Appropriate, Agitated - DERM Integumentary: Warm, Dry Adult Front & Back Diagram: 1 - honeycomb dressing with tegaderm in place with slight opening by her axilla. dark old drainage noted to arm by right axilla, no erythema no swelling or redness noted Course - Re-evaluation Re-evalutation: 04/15/17 10:42 I contacted 's office and spoke to his nurse. She spoke with Dr. Littlejohn he would like us to reinforce the Tegaderm and patient to keep appointment as scheduled. 04/15/17 10:55 Contacted pre op to discuss patients concerns regarding PT. they contacted dr littlejohn's office who instructed us to tell patient no PT until eval after next appointment tuesday. The dressing was reinforced with Tegaderm. Patient was also instructed to maintain the sling. She reports she has been taking it off to pull up her pants. Patient was again encouraged to follow Dr. Rios discharge instructions. - Vital Signs Vital signs: Temp Pulse Resp BP Pulse Ox 98.7 F 95 20 147/78 H 93 04/15/17 09:39 04/15/17 09:39 04/15/17 09:39 04/15/17 09:39 04/15/17 09:39 Discharge - Discharge Clinical Impression: wound check, dressing reinforcement, Elevated blood pressure reading Condition: Stable Disposition: HOME, SELF-CARE Additional Instructions: *You have been treated for wound recheck, dressing reinforcement *Monitor the site for signs of infection such as increasing pain, redness, swelling, warmth *Follow up with Dr Littlejohn as scheduled Tuesday *Leave sling on *Physical therapy will be started after you see Dr Littlejohn *Return to ED for signs of infection, worsening condition,changes, needs Monitor your blood pressure. Your blood pressure was elevated today. This may be because you were anxious, in pain or because you need medication. It is important to follow up with your primary care provider for full evaluation. Forms: Elevated Blood Pressure
[2017-04-15 11:18] VITALS: BP 143/76
== END 2017-04-15 11:14 | disposition home or self-care (01) ==
LOC: ER 09:31
DX: Z47.1 Aftercare following joint replacement surgery (principal); R03.0 Elevated blood-pressure reading, without diagnosis of hypertension
CPT/HCPCS: 99282

== ENCOUNTER → 2017-09-12 | Outpatient (CLI) | payer MEDICAID | LOC: OD 09:20 | PROVIDERS: ATTEND Physician Assistant | DX: N89.8 Other specified noninflammatory disorders of vagina (principal); R33.9 Retention of urine, unspecified | CPT/HCPCS: 87086 ==

== ENCOUNTER → 2017-12-30 | Outpatient (CLI) | payer MEDICAID | LOC: OD 08:35 | PROVIDERS: ATTEND Physician Assistant | DX: E03.9 Hypothyroidism, unspecified (principal) | CPT/HCPCS: 36415; 84443 ==

== ENCOUNTER → 2018-02-16 | Outpatient (CLI) | payer MEDICAID ==
--- NOTE | 2018-03-01 15:13 | WOMENS IMAGING REPORT ---
EXAM DESCRIPTION: BILAT SCREENING MAMMO W/CAD COMPLETED DATE/TIME: 02/16/2018 8:56 am REASON FOR STUDY: ENCNTR SCREEN MAMMOGRAM FOR MALIGNANT NEOPLASM OF BREAST Z12.31 ENCNTR SCREEN VIK MOGRAM FOR MALIGNANT NEOPLASM OF PIO COMPARISON: None. TECHNIQUE: Standard craniocaudal and mediolateral oblique views of each breast recorded using [employer] acquisition. LIMITATIONS: None. FINDINGS: No masses, calcifications or architectural distortion. No areas of suspicion. Read with the assistance of CAD. .[facility] - R2 Cenova Version 1.3 .[facility] - R2 Cenova Version 1.3 .[facility] - R2 Cenova Version 2.4 .[facility] Cenova Version 2.4 .[facility] - R2 Lifter Driver Version 9.2 IMPRESSION: NORMAL MAMMOGRAM. BIRADS 1. BREAST DENSITY: b. There are scattered areas of fibroglandular density. BIRAD: 1 NEGATIVE RECOMMENDATION: ROUTINE SCREENING COMMENT: The patient has been notified of the results by letter per SA requirements. Additional no tification policies are in place for contacting patient with suspicious or incomplete findings. Quality ID #[id number]: The [employer] recommends an annual screening mammogram for women aged 40 years or over. This facility utilizes a reminder system to ensure that all patients receive reminder letters, and/or direct phone calls for appointments. This includes reminders for routine scr eening mammograms, diagnostic mammograms, or other Breast Imaging Interventions when appropriate. Th is patient will be placed in the appropriate reminder system. The [employer] (ACR) has developed recommendations for screening MRI of the breast s in certain patient populations, to be used in conjunction with mammography. Breast MRI surveillanc e may be appropriate for women with more than 20% lifetime risk of developing breast cancer as deter mined by genetic testing, significant family history of the disease, or history of mantle radiation f or Hodgkins Disease. ACR Practice Guidelines 2008. TECHNICAL DOCUMENTATION: FINDING NUMBER: (1) ASSESSMENT: (1) JOB ID: [id number] [employer]- All Rights Reserved Reading location - IP/workstation name: [email or web address]
== END ==
LOC: WI 08:20
PROVIDERS: ATTEND Physician Assistant
DX: Z12.31 Encounter for screening mammogram for malignant neoplasm of breast (principal)
CPT/HCPCS: 77067

== ENCOUNTER 2018-03-07 13:22 | Emergency (ER) | payer MEDICAID ==
[2018-03-07 13:32] VITALS: BP 153/92
--- NOTE | 2018-03-07 14:17 | ER Document Report ---
ED Medical Screen (RME) - General Chief Complaint: Psych Problem Stated Complaint: PSYCH EVAL Time Seen by Provider: 03/07/18 13:55 Notes: Patient is a 57-year-old female, past medical history depression, presents by EMS after she is having tactile hallucinations and feeling extremely anxious. She feels bugs crawling all over her. She left [facility] recently and moved to a motel. Patient is having increased depression and angriness. PE: Intermittent agitation episodes. Very anxious. Scratching her left arm. No bugs or rashes seen. I have greeted and performed a rapid initial assessment of this patient. A comprehensive ED assessment and evaluation of the patient, analysis of test results and completion of the medical decision making process will be conducted by additional ED providers. TRAVEL OUTSIDE OF THE [place] IN LAST 30 DAYS: No - Related Data Allergies/Adverse Reactions: Tetanus Vaccines and Toxoid [Tetanus] Allergy (Severe, Verified 03/07/18 13:46) Swelling hydrocodone [From Vicodin] Allergy (Verified 03/07/18 13:46) latex Allergy (Verified 03/07/18 13:46) Hives shellfish derived Allergy (Verified 03/07/18 13:46) Hives Past Medical History - Social History Chew tobacco use (# tins/day): No Frequency of alcohol use: None Drug Abuse: None - Past Medical History Cardiac Medical History: Reports: Hx Hypercholesterolemia, Hx Hypertension, Hx Heart Murmur - Systolic Murmur Denies: Hx Atrial Fibrillation, Hx Congestive Heart Failure, Hx Coronary Artery Disease, Hx Heart Attack, Hx Peripheral Vascular Disease, Hx Pulmonary Embolism Pulmonary Medical History: Reports: Hx COPD, Hx Pneumonia - at age 15 Denies: Hx Asthma, Hx Bronchitis, Hx Respiratory Failure, Hx Sleep Apnea, Hx Tuberculosis Renal/ Medical History: Denies: Hx Ovarian Cysts, Hx Peritoneal Dialysis, Hx Pelvic Inflammatory Disease Malignancy Medical History: Denies: Hx Breast Cancer, Hx Cervical Cancer, Hx Lung Cancer, Hx Ovarian Cancer Musculoskeltal Medical History: Reports Hx Arthritis, Denies Hx Fibromyalgia, Denies Hx Muscular Dystrophy, Reports Hx Musculoskeletal Deformity Psychiatric Medical History: Reports: Hx Attention Deficit Hyperactivity Disorder, Hx Bipolar Disorder, Hx Depression Denies: Hx Post Traumatic Stress Disorder, Hx Schizophrenia Traumatic Medical History: Denies: Hx Fractures Past Surgical History: Reports: Hx Appendectomy, Hx Tonsillectomy. Denies: Hx Bowel Surgery, Hx Section, Hx Cholecystectomy, Hx Coronary Artery Bypass Graft, Hx Gastric Bypass Surgery, Hx Herniorrhaphy, Hx Hysterectomy, Hx Mastectomy, Hx Pacemaker, Hx Tubal Ligation - Immunizations Immunizations up to date: No Hx Diphtheria, Pertussis, Tetanus Vaccination: No Physical Exam - Vital signs Vitals: Temp Pulse Resp BP Pulse Ox 98.2 F 78 22 H 153/92 H 97 03/07/18 13:30 03/07/18 13:30 03/07/18 13:30 03/07/18 13:30 03/07/18 13:30 Course - Vital Signs Vital signs: Temp Pulse Resp BP Pulse Ox 98.2 F 78 22 H 153/92 H 97 03/07/18 13:30 03/07/18 13:30 03/07/18 13:30 03/07/18 13:30 03/07/18 13:30
[2018-03-07] MEDS ORDERED: HYDROXYZINE PAMOATE 50 MG CAPSULE PO ONE (14:18)
--- NOTE | 2018-03-07 14:30 | ER Document Report ---
ED General - General Chief Complaint: Psych Problem Stated Complaint: PSYCH EVAL Time Seen by Provider: 03/07/18 13:55 Notes: The patient is a 57 yo female, PMHx anxiety, presents by EMS after she was feeling lonely at the hotel. She left [facility] few days ago because she did not like it. She is having increased feelings of bugs crawling on her. Patient denies SI, HI, chest pain, shortness of breath, fevers, back pain, nausea or vomiting. TRAVEL OUTSIDE OF THE [place] IN LAST 30 DAYS: No - Related Data Allergies/Adverse Reactions: Tetanus Vaccines and Toxoid [Tetanus] Allergy (Severe, Verified 03/07/18 13:46) Swelling hydrocodone [From Vicodin] Allergy (Verified 03/07/18 13:46) latex Allergy (Verified 03/07/18 13:46) Hives shellfish derived Allergy (Verified 03/07/18 13:46) Hives Past Medical History - General Information source: Patient - Social History Smoking Status: Current Every Day Smoker Chew tobacco use (# tins/day): No Frequency of alcohol use: None Drug Abuse: None Family History: Reviewed & Not Pertinent, CAD, DM, Hyperlipidemia, Hypertension Patient has suicidal ideation: No Patient has homicidal ideation: No - Past Medical History Cardiac Medical History: Reports: Hx Hypercholesterolemia, Hx Hypertension, Hx Heart Murmur - Systolic Murmur Denies: Hx Atrial Fibrillation, Hx Congestive Heart Failure, Hx Coronary Artery Disease, Hx Heart Attack, Hx Peripheral Vascular Disease, Hx Pulmonary Embolism Pulmonary Medical History: Reports: Hx COPD, Hx Pneumonia - at age 15 Denies: Hx Asthma, Hx Bronchitis, Hx Respiratory Failure, Hx Sleep Apnea, Hx Tuberculosis Renal/ Medical History: Denies: Hx Ovarian Cysts, Hx Peritoneal Dialysis, Hx Pelvic Inflammatory Disease Malignancy Medical History: Denies: Hx Breast Cancer, Hx Cervical Cancer, Hx Lung Cancer, Hx Ovarian Cancer Musculoskeltal Medical History: Reports Hx Arthritis, Denies Hx Fibromyalgia, Denies Hx Muscular Dystrophy, Reports Hx Musculoskeletal Deformity Psychiatric Medical History: Reports: Hx Attention Deficit Hyperactivity Disorder, Hx Bipolar Disorder, Hx Depression Denies: Hx Post Traumatic Stress Disorder, Hx Schizophrenia Traumatic Medical History: Denies: Hx Fractures Past Surgical History: Reports: Hx Appendectomy, Hx Tonsillectomy. Denies: Hx Bowel Surgery, Hx Section, Hx Cholecystectomy, Hx Coronary Artery Bypass Graft, Hx Gastric Bypass Surgery, Hx Herniorrhaphy, Hx Hysterectomy, Hx Mastectomy, Hx Pacemaker, Hx Tubal Ligation - Immunizations Immunizations up to date: No Hx Diphtheria, Pertussis, Tetanus Vaccination: No Review of Systems - Review of Systems Notes: REVIEW OF SYSTEMS: CONSTITUTIONAL: -fevers, -chills EENT: -eye pain, -difficulty swallowing, -nasal congestion CARDIOVASCULAR: -chest pain, -syncope. RESPIRATORY: -cough, -SOB GASTROINTESTINAL: -abdominal pain, -nausea, -vomiting, -diarrhea GENITOURINARY: -dysuria, -hematuria MUSCULOSKELETAL: -back pain, -neck pain SKIN: -rash or skin lesions. HEMATOLOGIC: -easy bruising or bleeding. LYMPHATIC: -swollen, enlarged glands. NEUROLOGICAL: -altered mental status or loss of consciousness, -headache, - neurologic symptoms PSYCHIATRIC: +anxiety, -depression. ALL OTHER SYSTEMS REVIEWED AND NEGATIVE. Physical Exam - Vital signs Vitals: Temp Pulse Resp BP Pulse Ox 98.2 F 78 22 H 153/92 H 97 03/07/18 13:30 03/07/18 13:30 03/07/18 13:30 03/07/18 13:30 03/07/18 13:30 - Notes Notes: PHYSICAL EXAMINATION: GENERAL: Well-appearing, well-nourished and in no acute distress. HEAD: Atraumatic, normocephalic. EYES: Pupils equal round and reactive to light, extraocular movements intact, sclera anicteric, conjunctiva are normal. ENT: nares patent, oropharynx clear without exudates. Moist mucous membranes. NECK: Normal range of motion, supple without lymphadenopathy LUNGS: Breath sounds clear to auscultation bilaterally and equal. No wheezes rales or rhonchi. HEART: Regular rate and rhythm without murmurs ABDOMEN: Soft, nontender, normoactive bowel sounds. No guarding, no rebound. No masses appreciated. EXTREMITIES: Normal range of motion, no pitting or edema. No cyanosis. NEUROLOGICAL: Cranial nerves grossly intact. Normal speech, normal gait. Normal sensory and motor exams. PSYCH: Denies SI or HI. Mildly agitated, but cooperative. SKIN: Warm, Dry, normal turgor, no rashes or lesions noted. Course - Re-evaluation Re-evalutation: Pt decided to leave once she got into a room without a complete workup. Patient denies any SI or HI. She is also not acutely psychotic. Patient does not meet IVC criteria. Encouraged patient to return at any time for further evaluation. - Vital Signs Vital signs: Temp Pulse Resp BP Pulse Ox 98.2 F 78 22 H 153/92 H 97 03/07/18 13:30 03/07/18 13:30 03/07/18 13:30 03/07/18 13:30 03/07/18 13:30 - Laboratory Laboratory results interpreted by me: 03/07/18 14:09 Urine Blood SMALL H Discharge - Discharge Clinical Impression: Tactile hallucinations, Anxiety Condition: Stable Disposition: ELOPED
[2018-03-07 14:53] LABS: APPEARANCE,URINE CLEAR; BILIRUBIN,URINE NEGATIVE (NEGATIVE); COLOR,URINE YELLOW; GLUCOSE, URINE NEGATIVE (NEGATIVE); KETONES,URINE NEGATIVE (NEGATIVE); LEUKOCYTE ESTERASE,URINE NEGATIVE (NEGATIVE); NITRITE,URINE NEGATIVE (NEGATIVE); PROTEIN,URINE NEGATIVE (NEGATIVE); URINE SPECIFIC GRAVITY 1.019; UROBILINOGEN,URINE NEGATIVE mg/dL (<2.0)
[2018-03-07 15:05] LABS: URINE AMPHETAMINES SCREEN NEGATIVE; URINE BARBITURATES SCREEN NEGATIVE; URINE BENZODIAZEPINES SCREEN UNCONFIRMED POSITIVE; URINE COCAINE SCREEN NEGATIVE; URINE MARIJUANA (THC) SCREEN NEGATIVE; URINE METHADONE SCREEN NEGATIVE; URINE PHENCYCLIDINE SCREEN NEGATIVE
== END 2018-03-07 14:40 | disposition left against medical advice (07) ==
LOC: ER 13:22
DX: R44.2 Other hallucinations (principal); F41.9 Anxiety disorder, unspecified; I10 Essential (primary) hypertension; J44.9 Chronic obstructive pulmonary disease, unspecified
CPT/HCPCS: 80307; 81001; 99281

== ENCOUNTER 2018-03-30 19:15 | Emergency (ER) | payer MEDICAID ==
[2018-03-30] MEDS ORDERED: NORMAL SALINE 1000 ML 1,000 ML IV ONE ×2 (19:35→21:33)
--- NOTE | 2018-03-30 19:37 | ER Document Report ---
ED General - General Stated Complaint: ALCOHOL WITHDRAWAL Time Seen by Provider: 03/30/18 19:30 Notes: Patient is a 57-year-old female comes emergency by EMS from home for chief complaint of alcohol intoxication. Patient reportedly has been on a "drinking binge" for the past week after she voluntarily left [facility] (reportedly was there in rehab after surgery on her shoulder), boyfriend called EMS because he was worried about how she is acting as she began slurring her words with heavy drinking according to report. No fall reported, no vomiting reported, patient states that she has never had alcohol withdrawals before in the past. Patient states she was planning on going to her boyfriend's primary care for additional management. She is out of her seroquel and her klonopin. She states she has been drinking because she was out of the meds. She states she is waiting for a trailer to open up where she and her boyfriend will move to, but this was delayed, she is staying in a motel now. She denies SI or HI. TRAVEL OUTSIDE OF THE [place] IN LAST 30 DAYS: No - Related Data Allergies/Adverse Reactions: Tetanus Vaccines and Toxoid [Tetanus] Allergy (Severe, Verified 03/07/18 13:46) Swelling hydrocodone [From Vicodin] Allergy (Verified 03/07/18 13:46) latex Allergy (Verified 03/07/18 13:46) Hives shellfish derived Allergy (Verified 03/07/18 13:46) Hives Past Medical History - General Information source: Patient, Friend - boyfriend - Social History Smoking Status: Current Some Day Smoker Frequency of alcohol use: Heavy Drug Abuse: None Family History: Reviewed & Not Pertinent, CAD, DM, Hyperlipidemia, Hypertension - Past Medical History Cardiac Medical History: Reports: Hx Hypercholesterolemia, Hx Hypertension, Hx Heart Murmur - Systolic Murmur Denies: Hx Atrial Fibrillation, Hx Congestive Heart Failure, Hx Coronary Artery Disease, Hx Heart Attack, Hx Peripheral Vascular Disease, Hx Pulmonary Embolism Pulmonary Medical History: Reports: Hx COPD, Hx Pneumonia - at age 15 Denies: Hx Asthma, Hx Bronchitis, Hx Respiratory Failure, Hx Sleep Apnea, Hx Tuberculosis Renal/ Medical History: Denies: Hx Ovarian Cysts, Hx Peritoneal Dialysis, Hx Pelvic Inflammatory Disease Malignancy Medical History: Denies: Hx Breast Cancer, Hx Cervical Cancer, Hx Lung Cancer, Hx Ovarian Cancer Musculoskeltal Medical History: Reports Hx Arthritis, Denies Hx Fibromyalgia, Denies Hx Muscular Dystrophy, Reports Hx Musculoskeletal Deformity Psychiatric Medical History: Reports: Hx Attention Deficit Hyperactivity Disorder, Hx Bipolar Disorder, Hx Depression Denies: Hx Post Traumatic Stress Disorder, Hx Schizophrenia Traumatic Medical History: Denies: Hx Fractures Past Surgical History: Reports: Hx Appendectomy, Hx Tonsillectomy. Denies: Hx Bowel Surgery, Hx Section, Hx Cholecystectomy, Hx Coronary Artery Bypass Graft, Hx Gastric Bypass Surgery, Hx Herniorrhaphy, Hx Hysterectomy, Hx Mastectomy, Hx Pacemaker, Hx Tubal Ligation - Immunizations Immunizations up to date: No Hx Diphtheria, Pertussis, Tetanus Vaccination: No Review of Systems - Review of Systems Constitutional: No symptoms reported EENT: No symptoms reported Cardiovascular: No symptoms reported Respiratory: No symptoms reported Gastrointestinal: See HPI Genitourinary: No symptoms reported Female Genitourinary: No symptoms reported Musculoskeletal: No symptoms reported Skin: No symptoms reported Hematologic/Lymphatic: No symptoms reported Neurological/Psychological: See HPI Physical Exam - Vital signs Vitals: Temp Pulse Resp BP Pulse Ox 98.9 F 104 H 20 132/82 H 96 03/30/18 19:35 03/30/18 19:35 03/30/18 19:35 03/30/18 19:35 03/30/18 19:35 Interpretation: Normal - General General appearance: Other - patient appears somewhat intoxicated, but she is alert and cooperative - HEENT Head: Normocephalic, Atraumatic Eyes: Normal Pupils: PERRL - Respiratory Respiratory status: No respiratory distress Chest status: Nontender Breath sounds: Normal. No: Decreased air movement, Wheezing Chest palpation: Normal - Cardiovascular Rhythm: Regular, Tachycardia - borderline Heart sounds: Normal auscultation, S1 appreciated, S2 appreciated Murmur: No Normal capillary refill: Yes - Abdominal Inspection: Normal Distension: No distension Bowel sounds: Normal Tenderness: Nontender. No: Tender, Guarding - Back Back: Normal, Nontender. No: Tender, CVA tenderness - Extremities General upper extremity: Normal inspection, Nontender, Normal ROM, Normal strength General lower extremity: Normal inspection, Nontender, Normal ROM, Normal strength - Neurological Neuro grossly intact: Yes Cognition: Normal Orientation: AAOx4 Rocky Coma Scale Eye Opening: Spontaneous Mi Coma Scale Verbal: Oriented Mi Coma Scale Motor: Obeys Commands Rocky Coma Scale Total: 15 Speech: Normal Cranial nerves: Normal Cerebellar coordination: Normal Motor strength normal: LUE, RUE, LLE, RLE Additional motor exam normals: Equal culinary intern Sensory: Normal - Psychological Associated symptoms: Normal affect, Normal mood - Skin Skin Temperature: Warm Skin Moisture: Dry Skin Color: Flushed Course - Re-evaluation Re-evalutation: On initial examination patient smells of alcohol, appears mildly intoxicated, she is cooperative, she is oriented. Borderline tachycardia, unremarkable vital signs otherwise. CBC unremarkable. EKG showing bigeminy, normal QTC. Chemistry shows potassium that is low at 3.3, magnesium is slightly low at 1.6, urine shows elevated specific gravity consistent with dehydration. patient was given IV fluids, magnesium, and potassium. No concerning monitoring noted after being placed on telemetry. Patient had no vomiting in the room, she was given nausea medication , medication to help her rest (out of her Seroquel). Patient is tolerating p.o. without any difficulty. Reevaluated patient at bedside, discussed results, discussed options, patient denies SI or HI, patient will be placed on magnesium supplement at home, increase potassium in her diet, provided with nausea medication and her Seroquel, she states that she will be seeing a primary care provider that her boyfriend sees in [place] over the next several days, discussed return precautions, patient states understanding and agreement. 03/31/18 Patient requesting to stay, wants to talk to mental health in the morning, states she wants to talk about detox. Patient still recovering from intoxication , and the boyfriend who initially was going to drive her home left and now cannot be successfully contacted. Patient again denies SI or HI. Consult placed. - Vital Signs Vital signs: Temp Pulse Resp BP Pulse Ox 98.9 F 104 H 20 132/82 H 96 03/30/18 19:35 03/30/18 19:35 03/30/18 19:35 03/30/18 19:35 03/30/18 19:35 - Laboratory Result Diagrams: 03/30/18 21:18 03/30/18 21:10 Laboratory results interpreted by me: 03/30/18 03/30/18 03/30/18 20:40 21:10 21:10 RDW Plt Count Seg Neutrophils % Lymphocytes % Potassium 3.3 L Carbon Dioxide 21 L Calcium 7.3 L Magnesium 1.4 L Total Bilirubin 0.1 L Total Protein 4.9 L Albumin 2.8 L Urine Protein 30 H Urine Glucose (UA) 50 H Urine Ketones TRACE H Urine Blood MODERATE H Urine Bilirubin SMALL H Urine Urobilinogen 2.0 H 03/30/18 21:18 RDW 15.2 H Plt Count 128 L Seg Neutrophils % 85.5 H Lymphocytes % 10.2 L Potassium Carbon Dioxide Calcium Magnesium Total Bilirubin Total Protein Albumin Urine Protein Urine Glucose (UA) Urine Ketones Urine Blood Urine Bilirubin Urine Urobilinogen Discharge - Discharge Clinical Impression: Dehydration, Hypokalemia, Hypomagnesemia, Alcohol abuse Condition: Stable Disposition: HOME, SELF-CARE Additional Instructions: You have been treated today for dehydration and low electrolytes. Take the magnesium at home, increase potassium in diet. Take phenergan if needed for nausea, stop drinking alcohol, continue to hydrate. Take Seroquel as prescribed. Follow up with primary care as discussed. Return to the ED for any concerning symptoms - vomiting, passing out, etc. Prescriptions: Quetiapine Fumarate [Seroquel] 50 mg PO QHS PRN #30 tablet PRN Reason: Magnesium Oxide 250 mg PO DAILY #30 tablet Promethazine HCl [Phenergan 25 mg Tablet] 1 - 2 tab PO Q6H PRN #20 tablet PRN Reason:
[2018-03-30 21:29] LABS: APPEARANCE,URINE SLIGHTLY-CLOUDY; BILIRUBIN,URINE SMALL (NEGATIVE); COLOR,URINE YELLOW; GLUCOSE, URINE 50 mg/dL (NEGATIVE); KETONES,URINE TRACE mg/dL (NEGATIVE); LEUKOCYTE ESTERASE,URINE NEGATIVE (NEGATIVE); NITRITE,URINE NEGATIVE (NEGATIVE); PROTEIN,URINE 30 mg/dL (NEGATIVE); URINE SPECIFIC GRAVITY 1.033
[2018-03-30 21:34] LABS: ABSOLUTE LYMPHOCYTES (AUTO) 0.6 10^3/uL (0.5-4.7); ABSOLUTE MONOCYTES (AUTO) 0.2 10^3/uL (0.1-1.4); BASOPHILS % (AUTO) 0.3 % (0-2); EOSINOPHILS % (AUTO) 0.7 % (0-6); HEMATOCRIT 36.1 % (36.0-47.0); HEMOGLOBIN 12.1 g/dL (12.0-15.5); LYMPHOCYTES % (AUTO) 10.2 % (13-45); MEAN CORPUSCULAR HEMOGLOBIN 29.2 pg (27.0-33.4); MEAN CORPUSCULAR HGB CONC 33.4 g/dL (32.0-36.0); MEAN CORPUSCULAR VOLUME 87 fl (80-97); MONOCYTES % (AUTO) 3.3 % (3-13); PLATELET COUNT 128 10^3/uL (150-450); RED BLOOD COUNT 4.13 10^6/uL (3.72-5.28); RED CELL DISTRIBUTION WIDTH 15.2 % (11.5-14.0); SEGMENTED NEUTROPHILS % (AUTO) 85.5 % (42-78); TOTAL CELLS COUNTED % (AUTO) 100 %; WHITE BLOOD COUNT 5.8 10^3/uL (4.0-10.5)
[2018-03-30] MEDS ORDERED: QUETIAPINE FUMARATE 25 MG TABLET PO ONE (21:35)
[2018-03-30] MEDS ORDERED: PROMETHAZINE HCL 25 MG TABLET PO ONE (21:35)
[2018-03-30 21:48] LABS: ALANINE AMINOTRANSFERASE 25 U/L (9-52); ALBUMIN 2.8 g/dL (3.5-5.0); ALKALINE PHOSPHATASE 85 U/L (38-126); ANION GAP 14 (5-19); ASPARTATE AMINO TRANSFERASE 22 U/L (14-36); BILIRUBIN,DIRECT 0.1 mg/dL (0.0-0.4); BILIRUBIN,TOTAL 0.1 mg/dL (0.2-1.3); BLOOD UREA NITROGEN 14 mg/dL (7-20); CALCIUM 7.3 mg/dL (8.4-10.2); CARBON DIOXIDE 21 mmol/L (22-30); CHLORIDE 107 mmol/L (98-107); GLUCOSE 93 mg/dL (75-110); POTASSIUM 3.3 mmol/L (3.6-5.0); SODIUM 141.5 mmol/L (137-145); TOTAL PROTEIN 4.9 g/dL (6.3-8.2)
[2018-03-30] MEDS ORDERED: POTASSIUM CHLORIDE 10 MEQ TABLET.SA PO ONE (22:06)
[2018-03-30] MEDS: MAGNESIUM SULFATE/D5W 1 GM/100 ML RTUPB IV SCH ×2 (22:43→23:30)
[2018-03-30] MEDS ORDERED: LORAZEPAM 1 MG TABLET PO ONE (23:18)
--- NOTE | 2018-03-31 07:44 | EKG REPORT ---
SEVERITY:- ABNORMAL ECG - SINUS RHYTHM SUPRAVENTRICULAR BIGEMINY BORDERLINE T ABNORMALITIES, ANTERIOR LEADS, NEW COMPARED TO 03/17/17 EKG : Confirmed by: Narciso Chandler MD 31-Mar-2018 07:42:57
[2018-03-31] MEDS ORDERED: LORAZEPAM 1 MG TABLET PO ONE (10:18)
[2018-03-31] MEDS ORDERED: POTASSIUM CHLORIDE 10 MEQ TABLET.SA PO ONE ×2 (10:19→11:00)
--- NOTE | 2018-03-31 10:21 | ER Document Report ---
Doctor's Note Notes: 03/31/18 10:20 Rounds: Chart reviewed and patient interviewed. Patient says she is having the shakes and feels like she is having withdrawal from alcohol. Patient has a history of alcohol abuse and many visits to this emergency department for the same. Vital signs were all essentially normal. Lab studies were abnormal in that her potassium was 3.3, calcium 7.3, and magnesium is 1.4. Patient has been given 40 of KCl and I am giving an additional 40 of KCl now. I am also giving her an Ativan, which she says worked last night to help her with the shakes. Patient appears to be medically stable for transfer or discharge. Elizabet Pickering MD
--- NOTE | 2018-03-31 10:58 | PSYCHOLOGICAL NOTE ---
Psych Note - Psych Note Psych Note: Reason for evaluation: Patient requested psych services/alcohol use Contact permission: Patient's boyfriend José Luis skelton [phone] Eval: 0850 am Final Disposition: 11:30 am Patient is a 57-year-old female. Patient reports that she asked to stay overnight because she did not feel medically ready to go. Patient reports she is feeling sick and did not want to go back to the motel. Patient reports that the motel is "rough" and not a good place to be around when she is not feeling well. Patient reports that she was previously living at [facility] [place] but left because she was not able to drink there. Patient reports that she is interested in not drinking alcohol because it is "going to end up killing her". Patient reports that she wants to contact [facility] when she is ready but feels she is currently not ready because she is "not feeling medically good". Patient reports that she drinks 2/5 of vodka per day since she has left [facility] [place] ( approximately 6 weeks), and used for "years " prior to [facility]. Patient reports that she did not want to leave last night because she was "dizzy" so she told the staff she wanted to see psych. Collateral information: Patient's boyfriend José Luis Skelton [phone] (Present in room ) Patient's boyfriend states that he met patient while living at [facility] [place] due to from his . Patient's boyfriend reports that they made a plan to escape and moved into a trailer but then did not have enough money to stay so they went to a motel that is not a good environment. Patient's boyfriend reports that he has been sober for 10 years and is currently trying to help the patient get sober but she drinks 2/5 a day of vodka with "no OJ". Patient's boyfriend reports that they were talking about her getting help and resources because they are stuck in the motel and she feels scared while being there. Patient's boyfriend reports that he has no concerns of her being a harm to herself or others but is more concerned that she would end up with drying if she just went cold turkey. Patient's boyfriend reports that between the 2 of them they have enough money to get their own place but they are currently working towards their goals. Clinician provided education about alcohol withdrawal/alcohol use disorder. Diagnosis: 291.9 (F 10.99) Unspecified Alcohol-Related Disorder Impression/Plan: Patient is psychiatrically cleared for discharge. Recommendation for patient to follow-up with [facility] mobile crisis management for assistance in obtaining substance abuse intensive outpatient therapy. Clinician observed patient disclosed chronic history of substance abuse for the last several years. Clinician observed patient was seen previously by psych for similar etiology and did not follow through with recommendations for treatment. Resources were provided along with education regarding substance use disorder (alcohol). Attending physician in agreement with this disposition and plan. Consulted with Dr. Palacios regarding the management and care of patient.
[2018-03-31 12:42] VITALS: BP 144/96
== END 2018-03-31 12:05 | disposition home or self-care (01) ==
LOC: ER 19:15
DX: F10.10 Alcohol abuse, uncomplicated (principal); E86.0 Dehydration; E83.42 Hypomagnesemia; F17.200 Nicotine dependence, unspecified, uncomplicated; E78.00 Pure hypercholesterolemia, unspecified; I10 Essential (primary) hypertension; J44.9 Chronic obstructive pulmonary disease, unspecified; Z88.6 Allergy status to analgesic agent; Z91.040 Latex allergy status; Z91.013 Allergy to seafood
CPT/HCPCS: 93005; 99285; 96361; 96365; 96366; 36415; 83735; 85025; 80053; 81001; 93010; J3490 ×2; J3475; J7030

== ENCOUNTER 2018-04-14 20:19 | Emergency (ER) | payer MEDICAID ==
--- NOTE | 2018-04-14 21:14 | ER Document Report ---
ED General - General Chief Complaint: Altered Mental Status Stated Complaint: WEAKNESS Time Seen by Provider: 04/14/18 21:10 Cannot obtain history due to: Mentally challenged, Intoxicated Notes: Patient is a 57-year-old female who presents with multiple complaints. The patient complains mostly of bilateral knee pain that she states is chronic in nature, unchanged today. She also states that she is tired all the time and is suicidal. Patient states that she came to the emergency department by an ambulance tonight because her roommate left her at home alone by herself so they can go to the bar and did not take the patient with them. She states that she is acutely suicidal but has no specific plan for home she would commit suicide. She states that she is supposed to be on psychiatric medications for bipolar disorder but has been off of all of her medications since leaving [facility] 6 weeks ago. History is otherwise limited secondary to the patient 's intoxication TRAVEL OUTSIDE OF THE [place] IN LAST 30 DAYS: No - Related Data Allergies/Adverse Reactions: Tetanus Vaccines and Toxoid [Tetanus] Allergy (Severe, Verified 03/07/18 13:46) Swelling hydrocodone [From Vicodin] Allergy (Verified 03/07/18 13:46) latex Allergy (Verified 03/07/18 13:46) Hives shellfish derived Allergy (Verified 03/07/18 13:46) Hives Past Medical History - General Information source: Patient - Social History Smoking Status: Current Every Day Smoker Frequency of alcohol use: Heavy Drug Abuse: Prescription drugs Lives with: Friend Family History: Reviewed & Not Pertinent, CAD, DM, Hyperlipidemia, Hypertension - Past Medical History Cardiac Medical History: Reports: Hx Hypercholesterolemia, Hx Hypertension, Hx Heart Murmur - Systolic Murmur Denies: Hx Atrial Fibrillation, Hx Congestive Heart Failure, Hx Coronary Artery Disease, Hx Heart Attack, Hx Peripheral Vascular Disease, Hx Pulmonary Embolism Pulmonary Medical History: Reports: Hx COPD, Hx Pneumonia - at age 15 Denies: Hx Asthma, Hx Bronchitis, Hx Respiratory Failure, Hx Sleep Apnea, Hx Tuberculosis Renal/ Medical History: Denies: Hx Ovarian Cysts, Hx Peritoneal Dialysis, Hx Pelvic Inflammatory Disease Malignancy Medical History: Denies: Hx Breast Cancer, Hx Cervical Cancer, Hx Lung Cancer, Hx Ovarian Cancer Musculoskeltal Medical History: Reports Hx Arthritis, Denies Hx Fibromyalgia, Denies Hx Muscular Dystrophy, Reports Hx Musculoskeletal Deformity Psychiatric Medical History: Reports: Hx Attention Deficit Hyperactivity Disorder, Hx Bipolar Disorder, Hx Depression Denies: Hx Post Traumatic Stress Disorder, Hx Schizophrenia Traumatic Medical History: Denies: Hx Fractures Past Surgical History: Reports: Hx Appendectomy, Hx Tonsillectomy. Denies: Hx Bowel Surgery, Hx Section, Hx Cholecystectomy, Hx Coronary Artery Bypass Graft, Hx Gastric Bypass Surgery, Hx Herniorrhaphy, Hx Hysterectomy, Hx Mastectomy, Hx Pacemaker, Hx Tubal Ligation - Immunizations Immunizations up to date: No Hx Diphtheria, Pertussis, Tetanus Vaccination: No Review of Systems - Review of Systems Notes: Constitutional: Negative for fever. HENT: Negative for sore throat. Eyes: Negative for visual changes. Cardiovascular: Negative for chest pain. Respiratory: Negative for shortness of breath. Gastrointestinal: Negative for abdominal pain, vomiting or diarrhea. Genitourinary: Negative for dysuria. Musculoskeletal: Positive for bilateral knee pain that is chronic. Skin: Negative for rash. Neurological: Negative for headaches, weakness or numbness. 10 point ROS negative except as marked above and in HPI. Physical Exam - Vital signs Vitals: Temp Pulse Resp BP Pulse Ox 98.6 F 78 20 122/74 92 04/14/18 20:52 04/14/18 20:52 04/14/18 20:52 04/14/18 20:52 04/14/18 20:52 Interpretation: Normal Notes: PHYSICAL EXAMINATION: GENERAL: Appears older than stated age. Somewhat disheveled and smells strongly of alcohol HEAD: Atraumatic, normocephalic. EYES: Pupils equal round and reactive to light, extraocular movements intact, sclera anicteric, conjunctiva are normal. ENT: nares patent, oropharynx clear without exudates. Moist mucous membranes. NECK: Normal range of motion, supple without lymphadenopathy LUNGS: Breath sounds clear to auscultation bilaterally and equal. No wheezes rales or rhonchi. HEART: Regular rate and rhythm without murmurs ABDOMEN: Soft, nontender, normoactive bowel sounds. No guarding, no rebound. No masses appreciated. EXTREMITIES: Normal range of motion, no pitting or edema. No cyanosis. NEUROLOGICAL: No focal neurological deficits. Moves all extremities spontaneously and on command. PSYCH: Somewhat agitated, endorses suicidal ideation. Disheveled. SKIN: Warm, Dry, normal turgor, no rashes or lesions noted. Course - Re-evaluation Re-evalutation: 04/14/18 23:56 Patient presents with multiple vague complaints that did not appear to be concerning for any acute life-threatening pathology. Vitals are within normal limits at triage and at time of discharge. Physical examination is unremarkable. Patient has tolerated oral intake without difficulty. Patient was not noted to be in distress at any point during their ER visit. Patient does however complain that she is suicidal stating that she wants to but does not have any specific plans, she would harm herself. She states that she is off all psychiatric medications and needs to get back on these as she states her bipolar disorder is "out of control". Her medical screening exam is otherwise unremarkable and she is cleared for evaluation and disposition per psychiatry. 04/15/18 03:07 Despite the patient stating that she has not been drinking alcohol her alcohol level is markedly elevated at 237. The remainder of her labs are unremarkable and she is cleared for evaluation and disposition per psychiatry. She continues to state that she is suicidal. - Vital Signs Vital signs: Temp Pulse Resp BP Pulse Ox 98.6 F 65 27 H 124/70 92 04/14/18 20:52 04/14/18 21:00 04/14/18 22:00 04/14/18 21:01 04/14/18 22:00 - Laboratory Result Diagrams: 04/14/18 23:56 04/14/18 23:56 Laboratory results interpreted by me: 04/14/18 04/14/18 23:56 23:56 RDW 15.3 H Sodium 151.2 H Chloride 111 H Total Bilirubin < 0.1 L Total Protein 6.0 L Albumin 3.4 L Salicylates < 1.0 L Acetaminophen < 10 L - EKG Interpretation by Me Additional EKG results interpreted by me: 04/15/18 03:08 Sinus rhythm. Rate 67. No ST elevations or depressions. QTC is 427 Discharge - Discharge Clinical Impression: Suicidal ideation, Multiple complaints Alcohol intoxication Qualifiers: Complication of substance-induced condition: uncomplicated Qualified Code(s): F10.920 - Alcohol use, unspecified with intoxication, uncomplicated
[2018-04-15] MEDS ORDERED: QUETIAPINE FUMARATE 100 MG TABLET PO ONE (00:14)
[2018-04-15 00:15] LABS: ABSOLUTE BASOPHILS # (AUTO) 0.1 10^3/uL (0.0-0.2); ABSOLUTE EOSINOPHILS # (AUTO) 0.1 10^3/uL (0.0-0.6); ABSOLUTE LYMPHOCYTES (AUTO) 2.8 10^3/uL (0.5-4.7); ABSOLUTE MONOCYTES (AUTO) 0.5 10^3/uL (0.1-1.4); ABSOLUTE NEUT (AUTO) 2.9 10^3/uL (1.7-8.2); BASOPHILS % (AUTO) 1.5 % (0-2); EOSINOPHILS % (AUTO) 2.3 % (0-6); HEMATOCRIT 43.3 % (36.0-47.0); HEMOGLOBIN 14.3 g/dL (12.0-15.5); LYMPHOCYTES % (AUTO) 43.4 % (13-45); MEAN CORPUSCULAR HEMOGLOBIN 29.1 pg (27.0-33.4); MEAN CORPUSCULAR HGB CONC 33.1 g/dL (32.0-36.0); MEAN CORPUSCULAR VOLUME 88 fl (80-97); PLATELET COUNT 387 10^3/uL (150-450); RED BLOOD COUNT 4.91 10^6/uL (3.72-5.28); RED CELL DISTRIBUTION WIDTH 15.3 % (11.5-14.0); SEGMENTED NEUTROPHILS % (AUTO) 44.8 % (42-78); TOTAL CELLS COUNTED % (AUTO) 100 %; WHITE BLOOD COUNT 6.4 10^3/uL (4.0-10.5)
[2018-04-15 00:22] LABS: ALANINE AMINOTRANSFERASE 30 U/L (9-52); ALBUMIN 3.4 g/dL (3.5-5.0); ALCOHOL 236 mg/dL (NONE DETECTED); ALKALINE PHOSPHATASE 86 U/L (38-126); ANION GAP 12 (5-19); ASPARTATE AMINO TRANSFERASE 29 U/L (14-36); BLOOD UREA NITROGEN 9 mg/dL (7-20); CARBON DIOXIDE 28 mmol/L (22-30); CHLORIDE 111 mmol/L (98-107); GLUCOSE 96 mg/dL (75-110); POTASSIUM 4.1 mmol/L (3.6-5.0); SODIUM 151.2 mmol/L (137-145)
[2018-04-15 00:24] LABS: ACETAMINOPHEN < 10 ug/mL (10-30); BILIRUBIN,TOTAL < 0.1 mg/dL (0.2-1.3); SALICYLATE < 1.0 mg/dL (2.0-20.0)
--- NOTE | 2018-04-15 07:10 | EKG REPORT ---
SEVERITY:- ABNORMAL ECG - SINUS RHYTHM PROBABLE INFERIOR INFARCT, AGE INDETERMINATE : Confirmed by: Narciso Chandler MD 15-Apr-2018 07:09:46
[2018-04-15 08:52] LABS: APPEARANCE,URINE SLIGHTLY-CLOUDY; BILIRUBIN,URINE NEGATIVE (NEGATIVE); COLOR,URINE YELLOW; GLUCOSE, URINE NEGATIVE (NEGATIVE); KETONES,URINE NEGATIVE (NEGATIVE); LEUKOCYTE ESTERASE,URINE NEGATIVE (NEGATIVE); NITRITE,URINE NEGATIVE (NEGATIVE); PROTEIN,URINE NEGATIVE (NEGATIVE); URINE SPECIFIC GRAVITY 1.015; UROBILINOGEN,URINE NEGATIVE mg/dL (<2.0)
[2018-04-15 09:13] LABS: URINE AMPHETAMINES SCREEN NEGATIVE; URINE BARBITURATES SCREEN NEGATIVE; URINE BENZODIAZEPINES SCREEN UNCONFIRMED POSITIVE; URINE COCAINE SCREEN NEGATIVE; URINE MARIJUANA (THC) SCREEN UNCONFIRMED POSITIVE; URINE METHADONE SCREEN NEGATIVE; URINE PHENCYCLIDINE SCREEN NEGATIVE
[2018-04-15] MEDS ORDERED: LANSOPRAZOLE 30 MG TAB.RAP.DR PO ONE (09:45)
[2018-04-15] MEDS ORDERED: LORAZEPAM 1 MG TABLET PO ONE ×2 (09:45→13:43)
--- NOTE | 2018-04-15 09:45 | ER Document Report ---
Doctor's Note Notes: 04/15/18 09:43 This is a follow-up evaluation: Primary diagnosis-alcohol intoxication, suicidal ideation Patient is here for the above reason, has been doing well, currently has complaint anxiety, abdominal pain. On examination-vitals reviewed in the chart. General exam: Alert oriented 3 not in any acute distress HEENT: Normocephalic atraumatic pupils are equal reactive to light, Lungs-clear breath sounds no rales or wheezing. Cardiovascular system: Normal S1-S2 no murmurs. Gastrointestinal: Normal breath sounds, no organomegaly positive bowel sounds. Genitourinary: Skin: No lesions noted, no rash Psychiatric: Diagnoses: Suicidal ideation, alcohol intoxication, anxiety, GERD Plan: Shall give Ativan as well as Prevacid
--- NOTE | 2018-04-15 13:28 | PSYCHOLOGICAL NOTE ---
Psych Note - Psych Note Psych Note: Reason for consult: AMS, Alcohol intoxication, SI Contact Permissions: New Roommate Julia [phone] Julia's Daughter [phone] (if unable to reach Julia) Patient is a 57 year old female who presented to the ED last evening via EMS for several medical complaints (weakness, bilateral knee pain that has been chronic, tired all the time), alcohol intoxication and SI. She stated "I don't feel good, I need to be placed somewhere, I'm worried I'm going to kill myself, I don't want to kill myself." She commented how the "nurse just gave me Ativan, I can't think, I don't want to get upset again, I just need to relax." She maintained she has been out of all medications (both medical and psychiatric) since her discharge from [facility] 6 weeks ago. She stated she is diagnosed Bipolar and supposed to be taking Lexapro and Klonopin. She further noted she has a thyroid problem that she's supposed to take Synthroid for, as well as a Cholesterol medication. When confronted about making an appointment with a primary care physician she said "I can't find one." She acknowledged previous hospitalizations and said "there were too many." She noted she had been to [facility] 3rd floor [facility]. She denied regular alcohol use, said she had Vodka last night (Serum Alcohol Level upon arrival was 236), and chart review indicates she has been under the influence of alcohol (Vodka mentioned at least one previous visit) many times. Her UDS was positive for Cannabis which she said " it was a 1 time thing I smokes last week." At frist patient said she did not have a ride if discharged and later she brought up the new roommate. Patient agreed to linkage to [facility] when made reilly they could help with voluntary detox which is still a type of placement. Patient was at first groggy but as the assessment went on became more alert and oriented (person, place, situation). Mood was irritable with congruent affect as evidenced by being appropriate when getting what she wanted (like Ativan) and then getting loud, cursing and having rigid posturing when not getting what she wanted (had asked for Ativan numerous times before and after get first dose , even on her way out the door she was calling the attending nurse derogatory names for not getting her Ativan). Patient was not consistent with SI report as evidenced by saying she was worried she would kill herself, that she does not want to though, that she had a plan but when confronted could not say what the plan was and was focused on getting Ativan. She denied HI and this was not a presenting concern. She did not appear to be responding to internal stimuli as evidenced by fair eye contact, staying on topic and answering questions when addressed. Thought processes were linear. Conversational speech was within normal limits for rate, tone and prosody until irritable and not getting what she wanted then she became loud and cursed. Intellectual abilities are estimated to be average. Insight, judgment and impulse control are fair as evidenced by her ability to maintain self as long as she was getting what she wanted. Patient gave verbal consent to contact new roommate Julia. Julia confirmed patient had just started residing with her and she was welcome to come to the home and she could provide transportation. She stated she did not have concerns for patient and would be around for supervision. She provided her address ([address] [place] [address], [address], [place] [address], [place] [address]) so [facility] could meet them at the home for follow up. Diagnosis: 303.90 (F10.20) Alcohol Use Disorder, Severe 305.20 (F12.10) Cannabis Use Disorder, Mild 304.10 (F13.20) Anxiolytic (Benzodiazepine, reported supposed to be taking Klonopin, Kept asking for Ativan) Use Disorder, Moderate to Severe 296.80 (F31.9) Unspecified Bipolar and Related Disorder by history per patient report R/O 301.83 (F60.3) Borderline Personality Disorder Impression/Plan: Recommendation to check Thyroid Levels given she is supposed to be prescribed Synthroid for thyroid issues and maintained she has been off since her discharge from [facility] 6 months ago. Thyroid can effect mood. Her levels were within range. She has also been off her "Bipolar medications of Lexapro and Klonopin" the same amount of time. She has been positive for alcohol most visits per chart reviews. The most recent visit was 03/30/18 where she was instructed to contact [facility] for voluntary alcohol detox and/or other SA treatment such as [facility] and she admitted she has not followed through. Her reasoning was that she was home and she was made aware [facility] meets individuals in their home or anywhere else in the community. She reported SI with plan, stated "I am worried if I go home I will kill myself but I don't want to." She stated "I have a plan" but would not say what that plan was and kept stating "I don't want to though." She was inconsistent with SI statements and seemed to be focused on obtaining Ativan. Linked patient with [facility] from the ED (spoke to call center worker Ivon) and provided new roommates address, patient's phone number and roommates phone number (for voluntary detox and/or other SA treatment such as [facility] and from there her psychiatric medications can be addressed). Roommate is to call the [facility] number when they are in the vehicle getting ready to leave the ED so [facility] can meet them at the home. Patient provided with outpatient resource sheet which highlighted [facility] number and documented for Julia to call the call center and speak to Ivon. Consulted with Dr. Palacios regarding the management and care of patient. ED Physician in agreement with recommendation.
[2018-04-15 14:18] LABS: FREE T3 3.21 pg/mL (2.77-5.27); FREE T4 (FREE THYROXINE) 1.16 ng/dL (0.78-2.19)
[2018-04-15 14:31] LABS: THYROID STIMULATING HORMONE 1.45 uIU/mL (0.47-4.68)
[2018-04-15 16:10] VITALS: BP 150/84
== END 2018-04-15 16:26 | disposition home or self-care (01) ==
LOC: ER 20:19
DX: F10.920 Alcohol use, unspecified with intoxication, uncomplicated (principal); F41.9 Anxiety disorder, unspecified; F12.10 Cannabis abuse, uncomplicated; F60.3 Borderline personality disorder; F13.20 Sedative, hypnotic or anxiolytic dependence, uncomplicated; R45.851 Suicidal ideations
CPT/HCPCS: 93005; 99285; 36415; 84439; 80307 ×4; 84443; 85025; 80053; 81001; 84481; 93010; J3490

== ENCOUNTER 2018-04-19 09:29 | Emergency (ER) | payer MEDICAID ==
--- NOTE | 2018-04-19 10:00 | ER Document Report ---
ED General - General Stated Complaint: POSSIBLE SEIZURE Time Seen by Provider: 04/19/18 09:56 Mode of Arrival: Medic Information source: Patient Notes: 57-year-old female came in by EMS because her roommate Julia said she had 2 seizures in the middle of the night. The patient does not remember anything she took a Seroquel before she went to bed and slept all night. Main is not here. The patient is asking for anxiety medication because the only thing she has is Neurontin and Seroquel. She is supposed to be taking Klonopin and she does not have a prescription for that. She was here in the emergency department until April 14 for psychiatric reasons EtOH, benzo and marijuana abuse. She denies suicide ideology at this time. All she is asking for his anxiety medication because she cannot stop tremoring. She discharged herself from [facility] and then drank alcohol prior to her emergency room visit on the but denies alcohol . Yesterday. TRAVEL OUTSIDE OF THE [place] IN LAST 30 DAYS: No - Related Data Allergies/Adverse Reactions: Tetanus Vaccines and Toxoid [Tetanus] Allergy (Severe, Verified 03/07/18 13:46) Swelling hydrocodone [From Vicodin] Allergy (Verified 03/07/18 13:46) latex Allergy (Verified 03/07/18 13:46) Hives shellfish derived Allergy (Verified 03/07/18 13:46) Hives Past Medical History - General Information source: Patient - Social History Smoking Status: Current Every Day Smoker Frequency of alcohol use: Occasional Drug Abuse: Marijuana Lives with: Spouse/Significant other Family History: Reviewed & Not Pertinent, CAD, DM, Hyperlipidemia, Hypertension - Past Medical History Cardiac Medical History: Reports: Hx Hypercholesterolemia, Hx Hypertension, Hx Heart Murmur - Systolic Murmur Pulmonary Medical History: Reports: Hx COPD, Hx Pneumonia - at age 15 Musculoskeltal Medical History: Reports Hx Arthritis, Reports Hx Musculoskeletal Deformity Psychiatric Medical History: Reports: Hx Attention Deficit Hyperactivity Disorder, Hx Bipolar Disorder, Hx Depression Past Surgical History: Reports: Hx Appendectomy, Hx Tonsillectomy - Immunizations Immunizations up to date: No Hx Diphtheria, Pertussis, Tetanus Vaccination: No Review of Systems - Review of Systems Constitutional: No symptoms reported EENT: No symptoms reported Cardiovascular: No symptoms reported Respiratory: No symptoms reported Gastrointestinal: No symptoms reported Genitourinary: No symptoms reported Female Genitourinary: No symptoms reported Musculoskeletal: No symptoms reported Skin: No symptoms reported Hematologic/Lymphatic: No symptoms reported Neurological/Psychological: See HPI Physical Exam - Vital signs Vitals: Pulse Ox 98 04/19/18 09:40 Interpretation: Normal - General General appearance: Appears well, Alert - HEENT Head: Normocephalic, Atraumatic Eyes: Normal Conjunctiva: Normal Extraocular movements intact: Yes Pupils: PERRL Mucous membranes: Dry Neck: Supple. No: Lymphadenopathy - Respiratory Respiratory status: No respiratory distress Chest status: Nontender Breath sounds: Normal Chest palpation: Normal - Cardiovascular Rhythm: Regular Heart sounds: Normal auscultation Murmur: No - Abdominal Inspection: Normal Distension: No distension Bowel sounds: Normal Tenderness: Nontender Organomegaly: No organomegaly - Back Back: Normal, Nontender. No: CVA tenderness - Extremities General upper extremity: Normal inspection, Nontender, Normal color, Normal ROM , Normal temperature General lower extremity: Normal inspection, Nontender, Normal color, Normal ROM , Normal temperature, Normal weight bearing. No: Maye's sign - Neurological Neuro grossly intact: Yes Cognition: Normal Orientation: AAOx4 Mi Coma Scale Eye Opening: Spontaneous [place] Coma Scale Verbal: Oriented [place] Coma Scale Motor: Obeys Commands Mi Coma Scale Total: 15 Speech: Normal Motor strength normal: LUE, RUE, LLE, RLE Sensory: Normal Notes: tremulous arms - Psychological Associated symptoms: Normal affect, Normal mood - Skin Skin Temperature: Warm Skin Moisture: Dry Skin Color: Normal Skin irregularity: negative: Rash Course - Re-evaluation Re-evalutation: 04/19/18 11:22 Patient asking for medicine to calm down because she does not have her Klonopin. 04/19/18 11:52 I called the lab and gabapentin and Seroquel do not cause false positive for benzodiazepines. Her drug screen shows positive for marijuana and benzodiazepines today. She states the Benadryl will not calm her down she needs her "real medicine". 04/19/18 11:56 pt now admits that she got some anxiety medicine from a friend this weekend. 04/19/18 12:[address] Gentile , give 1 dose of Klonopin to the patient here and sent her to her regular doctor for refill. She can be discharged. 04/19/18 12:35 Patient has an appointment with her primary care doctor she said Fadia Cyr is not there anymore but there is a provider that will see her today. vitals stable, labs negative. - Vital Signs Vital signs: Temp Pulse Resp BP Pulse Ox 98.3 F 18 138/85 H 95 04/19/18 13:03 04/19/18 13:03 04/19/18 13:03 04/19/18 13:03 - Laboratory Result Diagrams: 04/19/18 10:25 04/19/18 10:25 Laboratory results interpreted by me: 04/19/18 04/19/18 10:25 10:40 WBC 11.7 H RDW 15.0 H Seg Neutrophils % 78.2 H Lymphocytes % 12.6 L Absolute Neutrophils 9.1 H Urine Blood SMALL H Discharge - Discharge Clinical Impression: Tremors of nervous system, Marijuana abuse, benzodiadepine use, Anxiety Condition: Good Disposition: HOME, SELF-CARE Instructions: Anxiety ([facility]) Additional Instructions: see your doctor for prescription for the Klonipin that you usully take You received 1 dose of Klonopin here Return to the emergency room any concerns Referrals: FADIA CYR PA-C [NO LOCAL MD] - 04/19/18
[2018-04-19 11:04] LABS: ABSOLUTE BASOPHILS # (AUTO) 0.1 10^3/uL (0.0-0.2); ABSOLUTE EOSINOPHILS # (AUTO) 0.1 10^3/uL (0.0-0.6); ABSOLUTE LYMPHOCYTES (AUTO) 1.5 10^3/uL (0.5-4.7); ABSOLUTE MONOCYTES (AUTO) 0.9 10^3/uL (0.1-1.4); ABSOLUTE NEUT (AUTO) 9.1 10^3/uL (1.7-8.2); BASOPHILS % (AUTO) 0.6 % (0-2); EOSINOPHILS % (AUTO) 1.1 % (0-6); HEMATOCRIT 44.2 % (36.0-47.0); HEMOGLOBIN 14.6 g/dL (12.0-15.5); LYMPHOCYTES % (AUTO) 12.6 % (13-45); MEAN CORPUSCULAR HEMOGLOBIN 29.7 pg (27.0-33.4); MEAN CORPUSCULAR VOLUME 90 fl (80-97); MONOCYTES % (AUTO) 7.5 % (3-13); PLATELET COUNT 306 10^3/uL (150-450); SEGMENTED NEUTROPHILS % (AUTO) 78.2 % (42-78); TOTAL CELLS COUNTED % (AUTO) 100 %; WHITE BLOOD COUNT 11.7 10^3/uL (4.0-10.5)
[2018-04-19] MEDS ORDERED: NORMAL SALINE 1000 ML 1,000 ML IV ONE (11:20)
[2018-04-19] MEDS ORDERED: DIPHENHYDRAMINE HCL 50 MG/ML VIAL IV ONE (11:22)
[2018-04-19 11:27] LABS: ALANINE AMINOTRANSFERASE 25 U/L (9-52); ALBUMIN 4.1 g/dL (3.5-5.0); ALKALINE PHOSPHATASE 99 U/L (38-126); ANION GAP 13 (5-19); ASPARTATE AMINO TRANSFERASE 26 U/L (14-36); BILIRUBIN,DIRECT 0.3 mg/dL (0.0-0.4); BILIRUBIN,TOTAL 0.3 mg/dL (0.2-1.3); BLOOD UREA NITROGEN 17 mg/dL (7-20); CARBON DIOXIDE 28 mmol/L (22-30); CHLORIDE 102 mmol/L (98-107); GLUCOSE 84 mg/dL (75-110); POTASSIUM 4.4 mmol/L (3.6-5.0); SODIUM 143.2 mmol/L (137-145)
[2018-04-19 11:28] LABS: ALCOHOL < 10 mg/dL (NONE DETECTED)
[2018-04-19 11:29] LABS: APPEARANCE,URINE CLEAR; BILIRUBIN,URINE NEGATIVE (NEGATIVE); COLOR,URINE YELLOW; GLUCOSE, URINE NEGATIVE (NEGATIVE); KETONES,URINE NEGATIVE (NEGATIVE); LEUKOCYTE ESTERASE,URINE NEGATIVE (NEGATIVE); NITRITE,URINE NEGATIVE (NEGATIVE); PROTEIN,URINE NEGATIVE (NEGATIVE); URINE SPECIFIC GRAVITY 1.021; UROBILINOGEN,URINE NEGATIVE mg/dL (<2.0)
[2018-04-19 11:40] LABS: URINE AMPHETAMINES SCREEN NEGATIVE; URINE BARBITURATES SCREEN NEGATIVE; URINE BENZODIAZEPINES SCREEN UNCONFIRMED POSITIVE; URINE COCAINE SCREEN NEGATIVE; URINE MARIJUANA (THC) SCREEN UNCONFIRMED POSITIVE; URINE METHADONE SCREEN NEGATIVE; URINE PHENCYCLIDINE SCREEN NEGATIVE
[2018-04-19] MEDS ORDERED: CLONAZEPAM 1 MG TABLET PO ONE (12:02)
[2018-04-19 13:08] VITALS: BP 138/85
== END 2018-04-19 13:15 | disposition home or self-care (01) ==
LOC: ER 09:29
DX: G25.2 Other specified forms of tremor (principal); F12.10 Cannabis abuse, uncomplicated; F15.90 Other stimulant use, unspecified, uncomplicated; F41.9 Anxiety disorder, unspecified; F17.200 Nicotine dependence, unspecified, uncomplicated; E78.00 Pure hypercholesterolemia, unspecified; I10 Essential (primary) hypertension; J44.9 Chronic obstructive pulmonary disease, unspecified
CPT/HCPCS: 99284; 96361; 96374; 36415; 80307 ×2; 83735; 85025; 80053; 81001; J3490; J1200; J7030

== ENCOUNTER → 2018-08-24 | Outpatient (CLI) | payer MEDICAID ==
[~2018-08-24] MED LIST changes: -BUPIVACAINE INJ/PF LIPOSOME/PF 266 MG/20 ML SDV IJ PRN; -CEFAZOLIN 2 GM/D5W RTU 2 GM/50 ML RTUPB IV PRN; -IBUPROFEN 800 MG/NS 250 ML IV PRN; -LACTATED RINGERS 1000 ML IV PRN; -LANSOPRAZOLE 15 MG TAB.RAP.DR PO PRN; -LIDOCAINE 0.5% INJ-PF (5 MG/ML) 50 ML SDV SUBCUT PRN; -OXYCODONE HCL SR 10 MG TABLET PO PRN; +REGADENOSON INJ 0.4 MG/5 ML DISP.SYRIN IV ONE; -SCOPOLAMINE HYDROBROMIDE 1.5 MG PATCH.TD72 TOP PRN
--- NOTE | 2018-08-25 10:06 | DRAGON STRESS TEST REPORT ---
INTRAVENOUS LEXISCAN CARDIOLITE STRESS TEST USING SINGLE PHOTON EMMISION COMPUTERIZED TOMOGRAPHIC. DATE OF PROCEDURE: August 24, 2018, INDICATION : Abnormal EKG and preop cardiovascular examination CARDIAC RISK FACTORS: Hypertension, dyslipidemia, tobacco abuse RESTING EKG: Sinus rhythm, nonprogression of R wave V1 to V4, minor nonspecific T wave changes STRESS EKG: No significant ST segment changes noted with LexiScan bolus REASON FOR TERMINATION: Protocol. PROCEDURE REPORT: Baseline heart rate 67 beats per minute with blood pressure of 104/67. Patient had no significant complaints. Patient was bolused with Lexiscan 0.4 mg intravenously followed by saline bolus. Heart rate at 2 minutes post bolus 84 with a blood pressure of 108/68. 3 minutes post bolus heart rate 81 with blood pressure of 106/69. No significant EKG changes were noted. Patient had no significant complaints during the procedure or postprocedure. CONCLUSIONS: Normal EKG and hemodynamic response to IV LexiScan. NUCLEAR DATA: At rest the patient was given 14.43 millicuries of technetium 99 sestamibi injected intravenously. As per protocol rest gated SPECT images were obtained. On day of stress test, the patient was given intravenous LexiScan at a dose of 0.4 mg in 5 mL intravenously, followed by flush with normal saline. Subsequently the stress dose of 43.1 millicuries of technetium 99 sestamibi was injected intravenously. As per protocol stress gated images were obtained. NUCLEAR INTERPRETATION: Both raw and processed data were used for interpretation. Visual, qualitative, computer-generated quantitative data was used. There was good myocardial uptake of technetium compound. Motion artifact and soft tissue attenuations were noted. Increased visceral uptake was noted. No definitive areas of transient perfusion defect noted, No definitive areas of fixed perfusion defect or scars noted. EKG gated imaging showed LV EF at 69 %, rest and stress gated EF similar visually. T. I D. ratio was 1.21. Lung heart ratio noted to be within normal limits 0.28. No significant extracardiac and abnormal radiotracer activities were noted. RV free wall uptake was noted to be WNL. IMPRESSION: Also refer to comments under nuclear interpretation. Also test results needs to be interpreted in the context of pretest probability. 1. No definitive areas of transient perfusion defect noted. 2. There is no definitive scintigraphic evidence of myocardial infarction/scar. 3. EKG gated imaging shows left ventricular ejection fraction of approx. 69 %. 4. Clinical correlation requested as worse disease and or balanced ischemia could be missed. In approximately 10% of the cases Lexiscan may not cause adequate vasodilatory stress. RECOMMENDATIONS: Aggressive risk factor modification and medical management. Further evaluation may be needed if continued symptoms or other high risk indicators are noted on clinical evaluation. Close cardiology follow-up is also recommended. Clinical correlation with echocardiogram derived ejection fraction. Inability to exercise by itself can lead to increased cardiovascular event risks. Consider cardiology consultation and or follow-up if clinically indicated. I am available for cardiology evaluation and consultation if requested by the medicare coordinator, unless patient already has a auto driver. Dr. Andie Barboza. MRCP Board certified in cardiology and sleep medicine. Board certified in nuclear cardiology, adult echocardiography. ANNIE
== END ==
LOC: RAD 07:16
PROVIDERS: ATTEND Internal Medicine Cardiovascular Disease
DX: R94.31 Abnormal electrocardiogram [ECG] [EKG] (principal)
CPT/HCPCS: 93017; 78452; A9500; J2785

== ENCOUNTER → 2018-09-14 | Outpatient (CLI) | payer MEDICAID ==
[2018-09-14 12:58] LABS: BLOOD UREA NITROGEN 20 mg/dL (7-20); GLUCOSE 87 mg/dL (75-110)
[2018-09-14 12:59] LABS: ANION GAP 15 (5-19); CARBON DIOXIDE 25 mmol/L (22-30); CHLORIDE 104 mmol/L (98-107); POTASSIUM 5.2 mmol/L (3.6-5.0); SODIUM 143.9 mmol/L (137-145)
[2018-09-14 13:11] LABS: APPEARANCE,URINE CLEAR; BILIRUBIN,URINE NEGATIVE (NEGATIVE); COLOR,URINE YELLOW; GLUCOSE, URINE NEGATIVE (NEGATIVE); KETONES,URINE NEGATIVE (NEGATIVE); LEUKOCYTE ESTERASE,URINE NEGATIVE (NEGATIVE); NITRITE,URINE NEGATIVE (NEGATIVE); PROTEIN,URINE NEGATIVE (NEGATIVE); URINE SPECIFIC GRAVITY 1.019; UROBILINOGEN,URINE NEGATIVE mg/dL (<2.0)
--- NOTE | 2018-09-14 21:51 | EKG REPORT ---
SEVERITY:- NORMAL ECG - SINUS RHYTHM : Confirmed by: Jared Barboza 14-Sep-2018 21:50:23
== END ==
LOC: OD 11:26
PROVIDERS: ATTEND Orthopaedic Surgery
DX: Z01.818 Encounter for other preprocedural examination (principal)
CPT/HCPCS: 36415; 80048; 81001; 93005; 93010

== ENCOUNTER 2018-10-02 08:03 | Inpatient (IN) | payer MEDICAID ==
--- NOTE | 2018-09-28 13:21 | Physician Advisory Note ---
Physician Advisor ProgressNote .: [facility] medical record for this patient. Physician Advisor Statement: 58yo Medicaid pt w/PMH COPD, DJD Rt shoulder w/arthroplasty, tobacco dependence , THC use, anx/dep, taking clonazepam daily. Per multiple ED/adm visits at [facility] in 2018 (x6) & 2017 (x7), she has underlying bipolar d/o, had pain issues on POD1 after shoulder surgery, and has repeatedly been under the influence of EtOH. During a psych eval in March 2018, she reported suicidal ideation & was loud & disruptive when not getting meds she desired (benzos). Her PROMIS score is only 20, unable to do many ADLs. H&P so far covers all necessary points for surgical necessity except needs details of x-ray findings. Status: appears most appropriate for Inpatient status. CK
[~2018-10-02 08:03] MED LIST changes: +ACETAMINOPHEN 1,000 MG/100 ML RTUPB IV ONE; +BUPIVACAINE HCL 0.25% /EPINEPHRINE INJ/PF 30 ML SDV ONE; +BUPIVACAINE HCL/DEX-WATER/PF 15 MG/2 ML AMPULE ONE; +BUPIVACAINE INJ/PF LIPOSOME/PF 266 MG/20 ML SDV INJ PRN; +CEFAZOLIN INJ 1 GM VIAL IV PRN; +CEFAZOLIN INJ 1 GM VIAL ONE; +DEXAMETHASONE SOD PHOSPHATE INJ 4 MG/1 ML VIAL ONE; +FENTANYL CITRATE INJ/PF 100 MCG/2 ML AMPUL ONE; +IBUPROFEN 800 MG in NORMAL SALINE 250 ML IV PRN; +LACTATED RINGERS 1000 ML IV PRN; +LANSOPRAZOLE 15 MG TAB.RAP.DR ONE; +LANSOPRAZOLE 15 MG TAB.RAP.DR PO PRN; +LIDOCAINE 0.5% INJ-PF (5 MG/ML) 50 ML SDV SUBCUT PRN; +LIDOCAINE 2% INJ-PF (20 MG/ML) 10 ML AMPUL ONE; +MIDAZOLAM 2 MG/2 ML INJ ONE; +ONDANSETRON HCL INJ/PF 4 MG/2 ML SDV ONE; +OXYCODONE HCL SR 10 MG TABLET PO ONE; +OXYCODONE HCL SR 10 MG TABLET PO PRN; +PROPOFOL INJ 200 MG/20 ML VIAL IV ONE; -REGADENOSON INJ 0.4 MG/5 ML DISP.SYRIN IV ONE; +THROMBIN (BOVINE) TOPICAL 5000 UNIT VIAL ONE; +VANCOMYCIN HCL 1,000 MG in DEXTROSE 5%-WATER 250 ML IV PRN
[2018-10-02] MEDS ORDERED: LIDOCAINE 0.5% INJ-PF (5 MG/ML) 50 ML SDV ONE (09:16)
[2018-10-02] MEDS ORDERED: PROPOFOL INJ 200 MG/20 ML VIAL IV ONE (10:33)
[2018-10-02] MEDS ORDERED: PROMETHAZINE HCL INJ 25 MG/1 ML VIAL IV PRN ×2 (10:40)
[2018-10-02] MEDS ORDERED: MORPHINE SULFATE 10 MG/ML INJ IV PRN ×3 (10:40→11:21)
[2018-10-02] MEDS ORDERED: DIPHENHYDRAMINE HCL 50 MG/ML VIAL IV PRN ×2 (10:40→11:21)
[2018-10-02] MEDS ORDERED: FENTANYL CITRATE INJ/PF 100 MCG/2 ML AMPUL IV PRN ×3 (10:40)
[2018-10-02] MEDS ORDERED: ONDANSETRON HCL INJ/PF 4 MG/2 ML SDV IV PRN ×2 (10:40→11:21)
[2018-10-02] MEDS ORDERED: MEPERIDINE HCL/PF INJ 25 MG/1 ML DISP.SYRIN IV PRN (10:40)
--- NOTE | 2018-10-02 11:19 | Operative Report ---
Operative Report DATE OF SURGERY: 10/02/18 PREOPERATIVE DIAGNOSIS: Right knee arthritis OPERATION: Right knee arthroplasty SURGEON: KARY ANDREWS ANESTHESIA: Spinal TISSUE REMOVED OR ALTERED: Bone to pathology ESTIMATED BLOOD LOSS: 100 PROCEDURE: Implants used: Femur: Andry triathlon size 4 CR femur Tibia: 3 tibia Tibial liner: 11 mm CS insert Patella: 32 mm oval patella Procedure with the patient supine on the operating table the right the limb is prepped and draped in a sterile fashion. The limb was elevated for exsanguination and the tourniquet inflated to 280 torr. A standard midline median parapatellar approach the knee is taken. Access is gained to the femoral canal through the intercondylar notch. Intramedullary alignment instrumentation used to resect 10 mm of distal femur in 5 of valgus. Sizing guide indicated a size 4 femur. Appropriate cutting jig is then used to fashion anterior posterior and chamfer cuts. A trial reduction femurs performed and this is judged to be adequate. Attention was next turned to the tibia. Using an extra medullary alignment system 9 millimeters was resected off the lateral tibial plateau. This is sized to a size 3 tibia. A trial reduction was now performed with a 4 femur and a 3 tibia using a 11 millimeters spacer. It is full extension and central patellofemoral tracking. The articular surface the patella was next resected using an oscillating saw. All trial implants were removed. Polymethylmethacrylate is mixed and used to cement the above implants in place. On adequate curing the cement excess cement was removed the tourniquet was deflated hemostasis obtained the wound is then closed in layers using interrupted Vicryl followed by mojgan. A sterile compressive dressing was applied and the patient returned to recovery room in satisfactory condition.
[2018-10-02] MEDS ORDERED: ACETAMINOPHEN 325 MG TABLET PO PRN (11:21)
[2018-10-02] MEDS ORDERED: ONDANSETRON 4 MG TAB.RAPDIS PO PRN (11:21)
[2018-10-02] MEDS ORDERED: MAG HYDROX/AL HYDROX/SIMETH SUSP 30 ML UDCUP PO PRN (11:21)
[2018-10-02] MEDS ORDERED: RINGERS SOLUTION,LACTATED 1,000 ML IV PRN (11:21)
[2018-10-02] MEDS ORDERED: LORAZEPAM INJ 2 MG/1 ML VIAL ONE (11:40)
--- NOTE | 2018-10-02 12:02 | RADIOLOGY REPORT (SQ) ---
EXAM DESCRIPTION: KNEE RIGHT 2 VIEWS COMPLETED DATE/TIME: 10/02/2018 11:51 am REASON FOR STUDY: Post OP -Long Cassette in PACU M17.0 BILATERAL PRIMARY OSTEOARTHRITIS OF KNEE COMPARISON: None. NUMBER OF VIEWS: Two views, AP and lateral TECHNIQUE: Digital radiographic images of the right knee post-procedure. LIMITATIONS: None. FINDINGS: BONES: No worrisome or unexpected findings post-procedure. DEVICE: Total knee arthroplasty. SOFT TISSUES: No worrisome findings. Expected postoperative soft tissue changes. IMPRESSION: SATISFACTORY POSTOPERATIVE RIGHT KNEE. TECHNICAL DOCUMENTATION: JOB ID: [id number] [employer]Stand- All Rights Reserved Reading location - IP/workstation name: [email or web address]
[2018-10-02] MEDS ORDERED: ALBUTEROL SULFATE 0.083% NEB 2.5 MG/3 ML AMPUL NEB ONE (12:10)
[2018-10-02] MEDS ORDERED: TRANEXAMIC ACID INJ/PF 1,000 MG/10 ML SDV IV ONE (13:30)
[2018-10-02] MEDS: OXYCODONE HCL IR 5 MG TABLET PO PRN (13:43)
[2018-10-02] MEDS ORDERED: IBUPROFEN 800 MG in DEXTROSE 5%-WATER 250 ML IV SCH (14:00)
[2018-10-02] MEDS: MORPHINE SULFATE 10 MG/ML INJ IV PRN ×3 (14:52→18:37)
[2018-10-02] MEDS: IBUPROFEN 800 MG in DEXTROSE 5%-WATER 250 ML IV SCH (17:40)
[2018-10-02] MEDS: SENNOSIDES/DOCUSATE 8.6-50 MG 1 EACH TABLET PO SCH (17:45)
[2018-10-02] MEDS: CLONAZEPAM 1 MG TABLET PO SCH (17:45)
[2018-10-02] MEDS: PREGABALIN 75 MG CAPSULE PO SCH (17:45)
[2018-10-02] MEDS: ROPINIROLE HCL 1 MG TABLET PO SCH (21:19)
[2018-10-02] MEDS ORDERED: OXYCODONE HCL SR 10 MG TABLET PO SCH (22:00)
[2018-10-02] MEDS ORDERED: VANCOMYCIN HCL 1,000 MG in DEXTROSE 5%-WATER 250 ML IV ONE (23:21)
[2018-10-03] MEDS: MORPHINE SULFATE 10 MG/ML INJ IV PRN ×4 (00:25→06:41)
[2018-10-03] MEDS: ZOLPIDEM TARTRATE 5 MG TABLET PO PRN ×2 (00:30→23:14)
[2018-10-03] MEDS: IBUPROFEN 800 MG in DEXTROSE 5%-WATER 250 ML IV SCH ×3 (02:30→17:52)
[2018-10-03] MEDS: OXYCODONE HCL IR 5 MG TABLET PO PRN ×4 (03:40→17:17)
[2018-10-03] MEDS: LANSOPRAZOLE 30 MG TAB.RAP.DR PO SCH (05:11)
[2018-10-03 06:40] LABS: HEMATOCRIT 35.8 % (36.0-47.0); HEMOGLOBIN 12.3 g/dL (12.0-15.5); MEAN CORPUSCULAR HEMOGLOBIN 29.9 pg (27.0-33.4); MEAN CORPUSCULAR HGB CONC 34.3 g/dL (32.0-36.0); MEAN CORPUSCULAR VOLUME 87 fl (80-97); PLATELET COUNT 202 10^3/uL (150-450); RED BLOOD COUNT 4.11 10^6/uL (3.72-5.28); RED CELL DISTRIBUTION WIDTH 14.7 % (11.5-14.0); WHITE BLOOD COUNT 10.7 10^3/uL (4.0-10.5)
[2018-10-03 07:08] LABS: ANION GAP 12 (5-19); BLOOD UREA NITROGEN 18 mg/dL (7-20); CALCIUM 8.9 mg/dL (8.4-10.2); CARBON DIOXIDE 22 mmol/L (22-30); CHLORIDE 107 mmol/L (98-107); GLUCOSE 106 mg/dL (75-110); POTASSIUM 4.5 mmol/L (3.6-5.0); SODIUM 140.6 mmol/L (137-145)
--- NOTE | 2018-10-03 07:40 | PDOC PROGRESS REPORT ---
Subjective Progress Note for:: 10/03/18 Reason For Visit: RIGHT KNEE ARTHRITIS 58-year-old female postop day 1 status post right knee arthroplasty. Patient with ongoing complaints of unrelenting pain overnight. Physical Exam Vital Signs: Temp Pulse Resp BP Pulse Ox 36.9 C 73 17 136/75 H 98 10/02/18 23:00 10/02/18 23:00 10/02/18 23:00 10/02/18 23:00 10/02/18 23:00 Intake & Output 10/02/18 10/03/18 10/04/18 06:59 06:59 06:59 Intake Total 5900 Output Total 2500 Balance 3400 Weight 105.9 kg General appearance: PRESENT: mild distress, well-nourished Head exam: PRESENT: normocephalic Respiratory exam: PRESENT: unlabored Cardiovascular exam: PRESENT: RRR Pulses: PRESENT: +1 pedal pulses bilateral Vascular exam: PRESENT: normal capillary refill GI/Abdominal exam: PRESENT: soft Rectal exam: PRESENT: deferred Extremities exam: PRESENT: other - Right lower extremity dressing clean dry and intact. Distal neurovascular examination is intact. Neurological exam: PRESENT: alert, awake, oriented to person, oriented to place , oriented to time, oriented to situation. ABSENT: motor sensory deficit Psychiatric exam: PRESENT: appropriate affect, normal mood. ABSENT: homicidal ideation, suicidal ideation Skin exam: PRESENT: dry, intact, warm. ABSENT: cyanosis, rash Results Laboratory Results: 10/03/18 06:21 10/03/18 06:21 10/02/18 10/03/18 10/03/18 08:39 06:21 06:21 WBC 10.7 H RBC 4.11 Hgb 12.3 Hct 35.8 L MCV 87 MCH 29.9 MCHC 34.3 RDW 14.7 H Plt Count 202 Sodium 140.6 Potassium 4.7 4.5 Chloride 107 Carbon Dioxide 22 Anion Gap 12 BUN 18 Creatinine 0.80 Est GFR ( Amer) > 60 Est GFR (Non-Af Amer) > 60 Glucose 106 Calcium 8.9 Impressions: Knee X-Ray 10/02/18 11:22 IMPRESSION: SATISFACTORY POSTOPERATIVE RIGHT KNEE. Status: Imported from PACS Assessment & Plan - Diagnosis (1) Arthritis of right knee Is this a current diagnosis for this admission?: Yes Plan: Mobilized with physical therapy and weightbearing as tolerated basis. Increase analgesia to make the patient more comfortable. Anticipate discharge to a retirement facility on . - Time Time Spent with patient: 15-24 minutes Anticipated discharge: SNF Within: within 48 hours
[2018-10-03] MEDS: PRENATAL VITAMIN W DHA CAPSULE PO SCH (09:56)
[2018-10-03] MEDS: CLONAZEPAM 1 MG TABLET PO SCH ×2 (09:56→17:53)
[2018-10-03] MEDS: ASPIRIN 81 MG TABLET, ENT COATED PO SCH (09:56)
[2018-10-03] MEDS: PREGABALIN 75 MG CAPSULE PO SCH ×2 (09:56→17:53)
[2018-10-03] MEDS: LISINOPRIL 5 MG TABLET PO SCH (09:57)
[2018-10-03] MEDS: SENNOSIDES/DOCUSATE 8.6-50 MG 1 EACH TABLET PO SCH ×2 (09:57→17:53)
[2018-10-03] MEDS ORDERED: OXYCODONE HCL SR 40 MG TABLET PO SCH (10:00)
[2018-10-03] MEDS ORDERED: HYDROMORPHONE HCL INJ/PF 2 MG/ML AMPULE IM ONE (20:00)
[2018-10-03] MEDS: OXYCODONE HCL SR 10 MG TABLET PO SCH (21:10)
[2018-10-03] MEDS: PREGABALIN 100 MG CAPSULE PO SCH (21:11)
[2018-10-03] MEDS: ROPINIROLE HCL 1 MG TABLET PO SCH (21:11)
[2018-10-04] MEDS: IBUPROFEN 800 MG in DEXTROSE 5%-WATER 250 ML IV SCH ×2 (02:50→09:13)
[2018-10-04] MEDS: HYDROMORPHONE HCL 2 MG TABLET PO PRN ×5 (05:10→23:52)
[2018-10-04] MEDS: LANSOPRAZOLE 30 MG TAB.RAP.DR PO SCH (06:50)
[2018-10-04] MEDS: PREGABALIN 100 MG CAPSULE PO SCH ×3 (06:50→23:03)
[2018-10-04 06:58] LABS: HEMATOCRIT 36.6 % (36.0-47.0); HEMOGLOBIN 12.5 g/dL (12.0-15.5); MEAN CORPUSCULAR HEMOGLOBIN 29.4 pg (27.0-33.4); MEAN CORPUSCULAR VOLUME 86 fl (80-97); RED BLOOD COUNT 4.24 10^6/uL (3.72-5.28); RED CELL DISTRIBUTION WIDTH 14.6 % (11.5-14.0)
--- NOTE | 2018-10-04 07:04 | PDOC PROGRESS REPORT ---
Subjective Progress Note for:: 10/04/18 Reason For Visit: RIGHT KNEE ARTHRITIS 58-year-old white female postop day 2 status post right knee arthroplasty. Uncontrolled pain led to limited progress with physical therapy and a subsequent pain management consult. Pain management all to the patient's medication but today she reports that there is little if any change in her pain level and that she is going to be unable to participate in physical therapy again today. Physical Exam Vital Signs: Temp Pulse Resp BP Pulse Ox 39.1 C H 86 24 H 110/61 89 L 10/03/18 23:57 10/03/18 23:57 10/03/18 23:57 10/03/18 23:57 10/03/18 23:57 Intake & Output 10/03/18 10/04/18 10/05/18 06:59 06:59 06:59 Intake Total 5900 473 Output Total 2500 Balance 3400 473 Weight 105.9 kg General appearance: PRESENT: mild distress, obese, well-nourished Head exam: PRESENT: normocephalic Respiratory exam: PRESENT: unlabored Cardiovascular exam: PRESENT: RRR Pulses: PRESENT: +1 pedal pulses bilateral Vascular exam: PRESENT: normal capillary refill GI/Abdominal exam: PRESENT: soft Rectal exam: PRESENT: deferred Musculoskeletal exam: PRESENT: other - Right knee dressing clean dry and intact. The surrounding skin is intact without erythema. There is global tenderness to palpation. Range of motion is not assessed. Neurological exam: PRESENT: alert, awake, oriented to person, oriented to place , oriented to time, oriented to situation. ABSENT: motor sensory deficit Skin exam: PRESENT: dry, intact, warm. ABSENT: cyanosis, rash Results Laboratory Results: 10/03/18 06:21 10/03/18 06:21 Sodium 140.6 Potassium 4.5 Chloride 107 Carbon Dioxide 22 Anion Gap 12 BUN 18 Creatinine 0.80 Est GFR ( Amer) > 60 Est GFR (Non-Af Amer) > 60 Glucose 106 Calcium 8.9 Impressions: Knee X-Ray 10/02/18 11:22 IMPRESSION: SATISFACTORY POSTOPERATIVE RIGHT KNEE. Status: Imported from PACS Assessment & Plan - Diagnosis (1) Arthritis of right knee Is this a current diagnosis for this admission?: Yes Plan: 58-year-old female with uncontrolled pain which precludes her participation in physical therapy. She does not have insurance to permit discharge to a senior care facility. Tentative plan is to send her back to the assisted living facility that she came from with physical therapy. This will have to await her regaining an appropriate level of function to make this achievable - Time Time Spent with patient: 15-24 minutes Anticipated discharge: Home with Homehealth Within: Other
[2018-10-04 07:54] LABS: PLATELET COUNT 190 10^3/uL (150-450)
[2018-10-04] MEDS: SENNOSIDES/DOCUSATE 8.6-50 MG 1 EACH TABLET PO SCH ×2 (09:18→17:23)
[2018-10-04] MEDS: CLONAZEPAM 1 MG TABLET PO SCH ×2 (09:18→17:24)
[2018-10-04] MEDS: ASPIRIN 81 MG TABLET, ENT COATED PO SCH (09:18)
[2018-10-04] MEDS: OXYCODONE HCL SR 10 MG TABLET PO SCH ×2 (09:18→23:03)
[2018-10-04] MEDS: LISINOPRIL 5 MG TABLET PO SCH (09:18)
[2018-10-04] MEDS: PRENATAL VITAMIN W DHA CAPSULE PO SCH (09:18)
--- NOTE | 2018-10-04 12:35 | CONSULTATION REPORT E ---
Consultation Report NAME: SANDRA CORTES : 1960 AGE: 58Y DATE: 10/03/2018 434 A TO: FROILAN HARPER PA-C FROM: Requesting Physician CHIEF COMPLAINT: Right knee pain. HISTORY OF PRESENT ILLNESS: This is a 58-year-old female status post right TKA yesterday by Dr. Woodson. Pain is out of control. Nothing touches the pain. Morphine IV (when she had an IV access) without improvement. States she was able to go to sleep, but when she woke up, the pain was worse. On OxyContin and OxyIR currently without benefit and then increasing the OxyContin from 20 mg to 40 mg made no difference. States she cannot go on like this. She cannot sleep. She is afraid to use the restroom because she cannot move because of the pain. She is worried that there is a complication. She has pain in her right thigh and she also has pain running down her leg and to the top of her foot. Her leg is still swollen and warm to touch, and again, she is afraid there is a complication with the surgery. Again, she is afraid to move the leg. She said she has not been eating or drinking much because she is afraid to use the restroom because she does not think she would be able to get out of bed to do so. She has not had a bowel movement since prior to the surgery. PAST MEDICAL HISTORY: Positive for: 1. COPD. 2. Arthritis. 3. Anxiety. 4. Bipolar. 5. Hypertension. PAST SURGICAL HISTORY: 1. Right shoulder arthroplasty. 2. Right knee TKA that was done yesterday, 10/02/2018. SOCIAL HISTORY: Taken from a physician advisory note dated 09/28/2018: She has a history of tobacco dependency, alcohol use, and THC use. FAMILY HISTORY: Not applicable. ALLERGIES: HYDROCODONE CAUSED ITCHING AND HIVES. She also has an allergy to LATEX. MEDICATIONS: See MAR. REVIEW OF SYSTEMS: Per the HPI. LABORATORIES AND DIAGNOSTICS: An x-ray postop on 10/02 noted satisfactory right knee replacement. Labs dated earlier today 10/03: There is a mild increase in white blood cell count at 10.7, normal range is 4.0 to 10.5. PHYSICAL EXAMINATION: GENERAL: This is a well-developed, well-nourished, obese 58-year-old female actually lying on her right side in bed. She was calm at first and then became tearful and anxious. When I told her I was with Pain Management, she noted a positive pain behavior. At one point I had left the room for a few minutes, and when I came back, she was asleep and when I woke her up, she became tearful, exerting excessive pain behavior and anxious again. VITAL SIGNS: The pain is a 5/5. Temperature is 98.9, pulse is 87, blood pressure 125/75, respirations 16, oxygen 90 on room air. EYES: EOMI. RESPIRATORY: Even, non-labored work of breathing and clear to auscultation bilaterally. CARDIAC: Regular rate and rhythm. ABDOMEN: Soft, nontender, nondistended. Positive normoactive bowel sounds on auscultation. Tympanic and upper quadrants with percussion and dull in the lower quadrants with percussion. EXTREMITIES: The right knee has a surgical dressing intact with only bloody residue. There is also edema extending from the mid thigh down to the lower leg that is radiating heat. There is no redness or drainage from the surgical dressings. NEUROLOGIC: She is alert and oriented x3. She is able to wiggle her toes. Sensation is intact along the right lower extremity above and below the knee. ASSESSMENT: 1. Acute postoperative pain at the right knee. 2. Constipation. PLAN: 1. Administer Dilaudid 2 mg IM 1 dose only for immediate pain relief. It was given IM because she has no IV access. 2. Decrease the OxyContin back down to 20 mg q. 12 hours, and will consider changing if it remains ineffective, consider MSContin 3. Discontinue the OxyIR and change to Dilaudid 4 mg q. 4 hours p.r.n. 4. Increase the Lyrica to 100 mg t.i.d. 5. Continue icing. 6. Monitor her bowel movement and plan to consider Colace and Miralax tomorrow if no bowel movement has occurred. 7. Continue to monitor for postoperative infection or other complications. White blood cell count is considered normal postop. Consider another X-ray if Dr. Woodson feels appropriate. DICTATING PHYSICIAN: FROILAN HARPER PA-C [id number] PHY#: [id number] ID: [id number] JOB#: [id number] ACCT: [id number] cc:FROILAN HARPER PA-C
--- NOTE | 2018-10-04 22:31 | PROGRESS NOTE E ---
Progress Note NAME: SANDRA CORTES : 1960 AGE: 58Y DATE: 10/04/2018 ROOM: 434 SUBJECTIVE: The nursing staff reports that the patient was doing better compared to yesterday, but she still reports pain is not controlled. She has been out of bed, though, and she did work with Physical Therapy and was able to walk the hallway. OBJECTIVE: VITAL SIGNS: Stable. GENERAL: Well-developed, well-nourished obese female. She was sleeping at the time I did rounds, so I did not wake her. ASSESSMENT: Right knee pain and anxiety. PLAN: Adding Vistaril to assist with anxiety related to pain, and may also provide some additional pain relief in conjunction with the opioids. DICTATING PHYSICIAN: FROILAN HARPER PA-C [id number] PHY#: [id number] ID: [id number] JOB#: [id number] ACCT: [id number] cc: > MTDD
[2018-10-04] MEDS: ROPINIROLE HCL 1 MG TABLET PO SCH (23:02)
[2018-10-04] MEDS: HYDROXYZINE PAMOATE 25 MG CAPSULE PO SCH (23:03)
[2018-10-04] MEDS: ZOLPIDEM TARTRATE 5 MG TABLET PO PRN (23:52)
[2018-10-05] MEDS: LANSOPRAZOLE 30 MG TAB.RAP.DR PO SCH (05:15)
[2018-10-05] MEDS: HYDROXYZINE PAMOATE 25 MG CAPSULE PO SCH ×2 (05:15→14:11)
[2018-10-05] MEDS: HYDROMORPHONE HCL 2 MG TABLET PO PRN ×3 (05:15→14:54)
[2018-10-05] MEDS: PREGABALIN 100 MG CAPSULE PO SCH ×2 (05:15→14:11)
[2018-10-05 05:59] LABS: HEMATOCRIT 38.6 % (36.0-47.0); MEAN CORPUSCULAR HEMOGLOBIN 29.4 pg (27.0-33.4); MEAN CORPUSCULAR HGB CONC 33.6 g/dL (32.0-36.0); MEAN CORPUSCULAR VOLUME 88 fl (80-97); PLATELET COUNT 195 10^3/uL (150-450); RED BLOOD COUNT 4.42 10^6/uL (3.72-5.28); RED CELL DISTRIBUTION WIDTH 14.3 % (11.5-14.0)
--- NOTE | 2018-10-05 06:57 | PDOC PROGRESS REPORT ---
Subjective Progress Note for:: 10/05/18 Reason For Visit: RIGHT KNEE ARTHRITIS 58-year-old white female now postop day 3 status post right knee arthroplasty. Patient with ongoing complaints of pain which is unrelenting and not relieved with her current analgesic regimen. This precludes significant participation with physical therapy. Physical Exam Vital Signs: Temp Pulse Resp BP Pulse Ox 37.6 C 89 19 108/56 L 84 L 10/04/18 23:42 10/04/18 23:43 10/04/18 23:42 10/04/18 23:42 10/04/18 23:43 Intake & Output 10/03/18 10/04/18 10/05/18 06:59 06:59 06:59 Intake Total 5900 913 658 Output Total 2500 120 Balance 3400 913 538 Weight 105.9 kg 99.7 kg Physical Exam: Arousable General appearance: PRESENT: mild distress, obese Head exam: PRESENT: normocephalic Respiratory exam: PRESENT: unlabored Cardiovascular exam: PRESENT: RRR Pulses: PRESENT: +1 pedal pulses bilateral Vascular exam: PRESENT: normal capillary refill GI/Abdominal exam: PRESENT: soft Rectal exam: PRESENT: deferred Extremities exam: PRESENT: other - Right knee dressing clean dry and intact. There is no drainage. There is minimal erythema. There is global tenderness to palpation. Results Laboratory Results: 10/05/18 05:46 10/03/18 06:21 10/04/18 10/05/18 06:08 05:46 WBC 12.0 H 11.0 H RBC 4.24 4.42 Hgb 12.5 13.0 Hct 36.6 38.6 MCV 86 88 MCH 29.4 29.4 MCHC 34.0 33.6 RDW 14.6 H 14.3 H Plt Count 190 195 Impressions: Knee X-Ray 10/02/18 11:22 IMPRESSION: SATISFACTORY POSTOPERATIVE RIGHT KNEE. Status: Imported from PACS Assessment & Plan - Diagnosis (1) Arthritis of right knee Is this a current diagnosis for this admission?: Yes Plan: 58-year-old white female with ongoing uncontrolled pain status post right knee arthroplasty which precludes regaining functional ambulation. At this point her pain medication and sedation are probably every good is much an impediment to her participation with physical therapy as is the knee arthroplasty. - Time Time Spent with patient: 15-24 minutes Anticipated discharge: Other Within: Other
[2018-10-05] MEDS: ASPIRIN 81 MG TABLET, ENT COATED PO SCH (09:05)
[2018-10-05] MEDS: SENNOSIDES/DOCUSATE 8.6-50 MG 1 EACH TABLET PO SCH (09:05)
[2018-10-05] MEDS: OXYCODONE HCL SR 10 MG TABLET PO SCH (09:05)
[2018-10-05] MEDS: PRENATAL VITAMIN W DHA CAPSULE PO SCH (09:05)
[2018-10-05] MEDS: CLONAZEPAM 1 MG TABLET PO SCH (09:05)
[2018-10-05] MEDS: LISINOPRIL 5 MG TABLET PO SCH (09:53)
--- NOTE | 2018-10-05 11:40 | PDOC TRANSFER SUMMARY ---
General - Admit/Disc Date/PCP Admission Date/Primary Care Provider: 10/02/18 08:03 Discharge Date: 10/05/18 - Discharge Diagnosis (1) Arthritis of right knee Is this a current diagnosis for this admission?: Yes - Additional Information Resuscitation Status: Full Code Home Medications: Quetiapine Fumarate [Seroquel] 150 mg PO DAILYP PRN 02/28/18 Ropinirole HCl 1 mg PO QHS 02/28/18 Clonazepam 1 mg PO BID 09/14/18 Fluticasone/Salmeterol [Advair 250-50 Diskus 28 dose] 1 puff IN BID 09/14/18 Lisinopril [Prinivil 5 mg Tablet] 5 mg PO DAILY 09/14/18 Melatonin [Melatonin 5 mg Tablet] 10 mg PO QHS 09/14/18 Omeprazole 20 mg PO DAILYP PRN 09/14/18 Oxycodone HCl/Acetaminophen [Oxycodone-Acetaminophen 5-325] 1 tab PO Q6HP PRN Cyanocobalamin (Vitamin B-12) [Vitamin B-12 1000 Mcg Tablet] 1,000 mcg PO DAILY 10/02/18 Simvastatin [Zocor 20 mg Tablet] 20 mg PO DAILY@1700 10/02/18 History of Present Illness Admission Date/PCP: 10/02/18 08:03 History of Present Illness: SANDAR CORTES is a 58 year old female Patient is a 58-year-old white female with progressive pain and functional disability secondary right knee osteoarthritis. Patient is admitted for elective right knee arthroplasty. Hospital Course Hospital Course: Patient is admitted through the operating where she undergoes uncomplicated right knee arthroplasty. She is returned to floor in satisfactory condition. Postoperatively pain control continues to be problematic in spite of a pain management consult. To a large extent as this interferes with physical therapies approach to mobilize the patient. On the day of surgery she is able to ambulate 50 feet with a rolling walker. Physical Exam Vital Signs: Temp Pulse Resp BP Pulse Ox 37.7 C 88 16 108/54 L 92 10/05/18 07:38 10/05/18 07:38 10/05/18 07:38 10/05/18 07:38 10/05/18 07:38 Intake & Output 10/04/18 10/05/18 10/06/18 06:59 06:59 06:59 Intake Total 913 658 Output Total 120 Balance 913 538 Weight 99.7 kg General appearance: PRESENT: mild distress, obese, well-nourished Head exam: PRESENT: normocephalic Respiratory exam: PRESENT: unlabored Cardiovascular exam: PRESENT: RRR Pulses: PRESENT: +1 pedal pulses bilateral GI/Abdominal exam: PRESENT: soft Rectal exam: PRESENT: deferred Extremities exam: PRESENT: other - Right knee dressing clean dry and intact. Small amount of pedal edema. Distal neurovascular examination is intact. Neurological exam: PRESENT: alert, awake, oriented to person, oriented to place , oriented to time, oriented to situation. ABSENT: motor sensory deficit Psychiatric exam: PRESENT: appropriate affect, normal mood. ABSENT: homicidal ideation, suicidal ideation Skin exam: PRESENT: dry, intact, warm. ABSENT: cyanosis, rash Results Laboratory Results: 10/05/18 05:46 10/03/18 06:21 10/05/18 05:46 WBC 11.0 H RBC 4.42 Hgb 13.0 Hct 38.6 MCV 88 MCH 29.4 MCHC 33.6 RDW 14.3 H Plt Count 195 Impressions: Knee X-Ray 10/02/18 11:22 IMPRESSION: SATISFACTORY POSTOPERATIVE RIGHT KNEE. Status: Imported from PACS Transfer Plan - Disposition Transfer Plan: [facility] and jail. Follow-up with Dr. Woodson and [facility] for surgery in 2 weeks for staple removal. Qualifiers - * PATIENT BEING DISCHARGED WITH ANY OF THE FOLLOWING DIAGNOSIS: No VTE patient discharged on overlapping Therapy?: Yes
[2018-10-05 16:49] VITALS: BP 116/65
== END 2018-10-05 17:37 | DRG 470 ==
LOC: INOR 08:03 → 4S 12:32
PROVIDERS: ADMIT Orthopaedic Surgery; ATTEND Orthopaedic Surgery
PROC: 0SRC0J9 Replacement of Right Knee Joint with Synthetic Substitute, Cemented, Open Approach (ICD-10-PCS; principal; 2018-10-02 10:00)
DX: M17.11 Unilateral primary osteoarthritis, right knee (principal); Z68.41 Body mass index [BMI] 40.0-44.9, adult; E66.9 Obesity, unspecified; J44.9 Chronic obstructive pulmonary disease, unspecified; M19.90 Unspecified osteoarthritis, unspecified site; I10 Essential (primary) hypertension; F41.9 Anxiety disorder, unspecified; F31.9 Bipolar disorder, unspecified; F17.210 Nicotine dependence, cigarettes, uncomplicated; K59.00 Constipation, unspecified; G47.00 Insomnia, unspecified; Z79.899 Other long term (current) drug therapy; Z91.040 Latex allergy status; Z88.6 Allergy status to analgesic agent
CPT/HCPCS: 01402; 36415; 80048; 84132; 85027; 88305; 88311; 94799; C1713; C1776; J0131; J0690; J1100; J1170; J1741; J2060; J2250; J2270; J2405; J2704; J3010; J3370; J3490; J7050; J7060; J7120

== ENCOUNTER 2019-12-23 11:22 | Emergency (ER) | payer MEDICAID ==
[2019-12-23 11:32] VITALS: BP 154/102
--- NOTE | 2019-12-23 12:20 | ER Document Report ---
ED Medical Screen (RME) - General Chief Complaint: Rash Stated Complaint: RASH Time Seen by Provider: 12/23/19 12:12 Mode of Arrival: Ambulatory Information source: Patient Notes: 59-year-old female with history of diabetes presents to the emergency department with rash to the top of her head and to her right ankle. Reports she has had what appears to be tinea since September. She has been treated with multiple medications and ointment but nothing is working. She reports it is getting worse. She also reports onset of a new rash to her right ankle which is swollen with erythema and some warmth. No complaints of fever vomiting diarrhea. Reports she was diagnosed as a diabetic but does not need to take metformin any longer. Patient is extremely nervous. I have greeted and performed a rapid initial assessment of this patient. A comprehensive ED assessment and evaluation of the patient, analysis of test results and completion of the medical decision making process will be conducted by additional ED providers. TRAVEL OUTSIDE OF THE [place] IN LAST 30 DAYS: No - Related Data Allergies/Adverse Reactions: Tetanus Vaccines and Toxoid [Tetanus] Allergy (Severe, Verified 12/23/19 12:07) Swelling hydrocodone [From Vicodin] Allergy (Verified 12/23/19 12:07) latex Allergy (Verified 12/23/19 12:07) Hives prednisone Allergy (Verified 12/23/19 12:07) shellfish derived Allergy (Verified 12/23/19 12:07) Hives Past Medical History - Past Medical History Cardiac Medical History: Reports: Hx Hypercholesterolemia, Hx Hypertension, Hx Heart Murmur - Systolic Murmur Denies: Hx Atrial Fibrillation, Hx Congestive Heart Failure, Hx Coronary Ar jian Disease, Hx Heart Attack, Hx Peripheral Vascular Disease, Hx Pulmonary Embolism Pulmonary Medical History: Reports: Hx COPD, Hx Pneumonia - at age 15 Denies: Hx Asthma, Hx Bronchitis, Hx Respiratory Failure, Hx Sleep Apnea, Hx Tuberculosis Renal/ Medical History: Denies: Hx Kidney Stones, Hx Ovarian Cysts, Hx Peritoneal Dialysis, Hx Pelvic Inflammatory Disease Malignancy Medical History: Denies: Hx Breast Cancer - fibrocystic disease, Hx Cervical Cancer, Hx Lung Cancer, Hx Ovarian Cancer Musculoskeltal Medical History: Reports Hx Arthritis, Denies Hx Fibromyalgia, Denies Hx Muscular Dystrophy, Reports Hx Musculoskeletal Deformity Psychiatric Medical History: Reports: Hx Attention Deficit Hyperactivity Disorder, Hx Bipolar Disorder, Hx Depression Denies: Hx Post Traumatic Stress Disorder, Hx Schizophrenia Traumatic Medical History: Denies: Hx Fractures Past Surgical History: Reports: Hx Appendectomy, Hx Tonsillectomy. Denies: Hx Bowel Surgery, Hx Section, Hx Cholecystectomy, Hx Coronary Artery Bypass Graft, Hx Gastric Bypass Surgery, Hx Herniorrhaphy, Hx Hysterectomy, Hx Mastectomy, Hx Pacemaker, Hx Tubal Ligation - Immunizations Immunizations up to date: No Hx Diphtheria, Pertussis, Tetanus Vaccination: No Physical Exam - Vital signs Vitals: Temp Pulse Resp BP Pulse Ox 98.1 F 89 18 154/102 H 98 12/23/19 11:29 12/23/19 11:29 12/23/19 11:29 12/23/19 11:29 12/23/19 11:29 Course - Vital Signs Vital signs: Temp Pulse Resp BP Pulse Ox 98.1 F 89 18 154/102 H 98 12/23/19 11:29 12/23/19 11:29 12/23/19 11:29 12/23/19 11:29 12/23/19 11:29
[2019-12-23 13:08] LABS: ABSOLUTE EOSINOPHILS # (AUTO) 0.1 10^3/uL (0.0-0.6); ABSOLUTE LYMPHOCYTES (AUTO) 1.3 10^3/uL (0.5-4.7); ABSOLUTE MONOCYTES (AUTO) 0.4 10^3/uL (0.1-1.4); ABSOLUTE NEUT (AUTO) 3.5 10^3/uL (1.7-8.2); BASOPHILS % (AUTO) 0.9 % (0-2); EOSINOPHILS % (AUTO) 1.3 % (0-6); HEMATOCRIT 45.3 % (36.0-47.0); HEMOGLOBIN 15.1 g/dL (12.0-15.5); LYMPHOCYTES % (AUTO) 24.5 % (13-45); MEAN CORPUSCULAR HEMOGLOBIN 29.2 pg (27.0-33.4); MEAN CORPUSCULAR HGB CONC 33.3 g/dL (32.0-36.0); MEAN CORPUSCULAR VOLUME 88 fl (80-97); MONOCYTES % (AUTO) 7.8 % (3-13); PLATELET COUNT 266 10^3/uL (150-450); RED BLOOD COUNT 5.18 10^6/uL (3.72-5.28); RED CELL DISTRIBUTION WIDTH 14.8 % (11.5-14.0); SEGMENTED NEUTROPHILS % (AUTO) 65.5 % (42-78); TOTAL CELLS COUNTED % (AUTO) 100 %; WHITE BLOOD COUNT 5.3 10^3/uL (4.0-10.5)
[2019-12-23 13:23] LABS: AMORPHOUS SEDIMENT,URINE 1+ /HPF; APPEARANCE,URINE CLOUDY; BILIRUBIN,URINE NEGATIVE (NEGATIVE); COLOR,URINE YELLOW; GLUCOSE, URINE NEGATIVE (NEGATIVE); KETONES,URINE NEGATIVE (NEGATIVE); LEUKOCYTE ESTERASE,URINE NEGATIVE (NEGATIVE); NITRITE,URINE NEGATIVE (NEGATIVE); PROTEIN,URINE NEGATIVE (NEGATIVE); URINE SPECIFIC GRAVITY 1.017; UROBILINOGEN,URINE NEGATIVE mg/dL (<2.0)
[2019-12-23 13:25] LABS: ALBUMIN 4.3 g/dL (3.5-5.0); ALKALINE PHOSPHATASE 139 U/L (38-126); ANION GAP 10 (5-19); ASPARTATE AMINO TRANSFERASE 23 U/L (14-36); BILIRUBIN,DIRECT 0.3 mg/dL (0.0-0.4); BILIRUBIN,TOTAL 0.4 mg/dL (0.2-1.3); BLOOD UREA NITROGEN 14 mg/dL (7-20); CALCIUM 9.5 mg/dL (8.4-10.2); CARBON DIOXIDE 30 mmol/L (22-30); CHLORIDE 100 mmol/L (98-107); GLUCOSE 95 mg/dL (75-110); POTASSIUM 3.5 mmol/L (3.6-5.0); TOTAL PROTEIN 7.5 g/dL (6.3-8.2)
--- NOTE | 2019-12-23 13:53 | ER Document Report ---
ED General - General Chief Complaint: Skin Problem Stated Complaint: RASH Time Seen by Provider: 12/23/19 12:12 Primary Care Provider: [facility] [Provider Group] - Follow up as needed CRISTIAN BUSTAMANTE DO [ACTIVE STAFF] - Follow up as needed TOÑA CARRINGTON MD [NO LOCAL MD] - Follow up as needed YUKO RIBERA MD [NO LOCAL MD] - Follow up as needed LELO COSME DO [NO LOCAL MD] - Follow up as needed BARRY NICHOLE MD [NO LOCAL MD] - Follow up as needed JING RODRIGES MD [NO LOCAL MD] - Follow up as needed SUHA CHUNG MD [NO LOCAL MD] - Follow up as needed GRACE DEL ROSARIO MD [NO LOCAL MD] - Follow up as needed CLIFFORD ROBERTS MD [ACTIVE PROVISIONAL STAFF] - Follow up as needed ISAIAH MARINA MD [NO LOCAL MD] - Follow up as needed ALLISON SMITH MD [NO LOCAL MD] - Follow up as needed TOMMY HORNE PA [NO LOCAL MD] - Follow up as needed TALIA KINGSTON DO [NO LOCAL MD] - Follow up as needed BARBARA CALLOWAY MD [NO LOCAL MD] - Follow up as needed LELO MCKINNON MD [NO LOCAL MD] - Follow up as needed Mode of Arrival: Ambulatory Notes: 59-year-old female presents with skin rash on her scalp and a rash on her right ankle. Patient states the rash on her scalp has been ongoing since September. Patient states she has been seen by urgent care and was prescribed Mupirocin and doxycycline with no improvement. Pt states rash on right ankle has been ongoing for past few days. History of diabetes - not currently on medication. Pt states the rash on her scalp is painful. Denies any fever, chest pain, dyspnea, nausea/vomiting, abdominal pain. TRAVEL OUTSIDE OF THE [place] IN LAST 30 DAYS: No - Related Data Allergies/Adverse Reactions: Tetanus Vaccines and Toxoid [Tetanus] Allergy (Severe, Verified 12/23/19 12:07) Swelling hydrocodone [From Vicodin] Allergy (Verified 12/23/19 12:07) latex Allergy (Verified 12/23/19 12:07) Hives prednisone Allergy (Verified 12/23/19 12:07) shellfish derived Allergy (Verified 12/23/19 12:07) Hives Past Medical History - General Information source: Patient - Social History Smoking Status: Unknown if Ever Smoked Family History: Reviewed & Not Pertinent, CAD, DM, Hyperlipidemia, Hypertension Patient has suicidal ideation: No Patient has homicidal ideation: No - Past Medical History Cardiac Medical History: Reports: Hx Hypercholesterolemia, Hx Hypertension, Hx Heart Murmur - Systolic Murmur Denies: Hx Atrial Fibrillation, Hx Congestive Heart Failure, Hx Coronary Artery Disease, Hx Heart Attack, Hx Peripheral Vascular Disease, Hx Pulmonary Embolism Pulmonary Medical History: Reports: Hx COPD, Hx Pneumonia - at age 15 Denies: Hx Asthma, Hx Bronchitis, Hx Respiratory Failure, Hx Sleep Apnea, Hx Tuberculosis Renal/ Medical History: Denies: Hx Kidney Stones, Hx Ovarian Cysts, Hx Peritoneal Dialysis, Hx Pelvic Inflammatory Disease Malignancy Medical History: Denies: Hx Breast Cancer - fibrocystic disease, Hx Cervical Cancer, Hx Lung Cancer, Hx Ovarian Cancer Musculoskeletal Medical History: Reports Hx Arthritis, Denies Hx Fibromyalgia, Denies Hx Muscular Dystrophy, Reports Hx Musculoskeletal Deformity Psychiatric Medical History: Reports: Hx Attention Deficit Hyperactivity Disorder, Hx Bipolar Disorder, Hx Depression Denies: Hx Post Traumatic Stress Disorder, Hx Schizophrenia Traumatic Medical History: Denies: Hx Fractures Past Surgical History: Reports: Hx Appendectomy, Hx Tonsillectomy. Denies: Hx Bowel Surgery, Hx Section, Hx Cholecystectomy, Hx Coronary Artery Bypass Graft, Hx Gastric Bypass Surgery, Hx Herniorrhaphy, Hx Hysterectomy, Hx Mastectomy, Hx Pacemaker, Hx Tubal Ligation - Immunizations Immunizations up to date: No Hx Diphtheria, Pertussis, Tetanus Vaccination: No Review of Systems - Review of Systems Notes: Constitutional: Negative for fever. HENT: Negative for sore throat. Eyes: Negative for visual changes. Cardiovascular: Negative for chest pain. Respiratory: Negative for shortness of breath. Gastrointestinal: Negative for abdominal pain, vomiting or diarrhea. Genitourinary: Negative for dysuria. Musculoskeletal: Negative for back pain. Skin: Positive for rash. Neurological: Negative for headaches, weakness or numbness. 10 point ROS negative except as marked above and in HPI. Physical Exam - Vital signs Vitals: Temp Pulse Resp BP Pulse Ox 98.1 F 89 18 154/102 H 98 12/23/19 11:29 12/23/19 11:12/23/19 11:12/23/19 11:12/23/19 11:29 - Notes Notes: GENERAL: Well-appearing, well-nourished and in no acute distress. HEAD: Atraumatic, normocephalic. SCALP: Approximately 4 cm area of scaly rash with mild erythema. EYES: Extraocular movements intact, sclera anicteric, conjunctiva are normal. NECK: Normal range of motion, supple without lymphadenopathy or JVD. EXTREMITIES: Normal range of motion, no pitting or edema. No clubbing or cyanosis. Ankle: Approximately 4 cm area of erythema that is mildly warmer. Distal pedal pulses 2+. Cap refill < 2 sec. NEUROLOGICAL: Cranial nerves II through XII grossly intact. Normal speech, normal gait. PSYCH: Normal mood, normal affect. SKIN: See scalp and ankle for rash. Warm, Dry, normal turgor. Course - Re-evaluation Re-evalutation: 12/23/19 nontoxic, well-appearing 59-year-old female presents with rash to scalp and rash to right ankle. Scalp rash appears scaly and appears to be possibly tinea or seborrheic dermatitis. Patient to be treated with ketoconazole/hydrocortisone ointment and given follow-up with dermatology. Rash to right ankle appears to be cellulitis. Area was marked with skin marker. Patient was prescribed Keflex for same. Patient is afebrile and non-t achycardic. No leukocytosis. Patient's blood sugar is 94. Patient also given referral to PCP. Strict return precautions given. Patient declines Toradol and is requesting narcotic pain medicine. Patient given 1 dose of Percocet and 5 tablets to go home with. Patient voices understanding and agrees with plan of care. - Vital Signs Vital signs: Temp Pulse Resp BP Pulse Ox 98.1 F 89 18 154/102 H 98 12/23/19 11:29 12/23/19 11:12/23/19 11:12/23/19 11:12/23/19 11:29 - Laboratory Result Diagrams: 12/23/19 12:57 12/23/19 12:57 Laboratory results interpreted by me: 12/23/19 12/23/19 12:57 12:57 RDW 14.8 H Potassium 3.5 L Alkaline Phosphatase 139 H Discharge - Discharge Clinical Impression: Scaly patch rash, Cellulitis of right ankle Condition: Stable Disposition: HOME, SELF-CARE Instructions: Cellulitis ([facility]), Ringworm (Tinea Corporis) ([facility]), Seborrheic Dermatitis ([facility]) Additional Instructions: Please use ointment to scalp twice daily. Please follow-up with 1 of the personnel worker listed in 3 to 5 days please take Keflex as prescribed and finish all doses even if you feel better for your right ankle skin infection. Please use warm compresses as discussed. Please follow up with [place] or local clinic to establish a primary care doctor in 3-5 days. Please return immediately to ER if you start having any worsening symptoms, including redness extending past marked line, fever, increased swelling, increased pain, chest pain, shortness of breath, nausea/vomiting, abdominal pain, or any other symptoms that are concerning to you. Prescriptions: Ketoconazole/Hydrocortisone [Hydrocort 2.5%-Ketoconazole 2%] 30 gm TP BID #1 cream..g. Cephalexin Monohydrate [Keflex 500 mg Capsule] 500 mg PO QID #40 capsule Ibuprofen [Motrin 800 mg Tablet] 800 mg PO Q8H PRN #30 tab PRN Reason: Oxycodone HCl/Acetaminophen [Percocet 5-325 mg Tablet] 1 tab PO ASDIR PRN #5 tab PRN Reason: Referrals: [facility] [Provider Group] - Follow up as needed CRISTIAN BUSTAMANTE DO [ACTIVE STAFF] - Follow up as needed CLIFFORD ROBERTS MD [ACTIVE PROVISIONAL STAFF] - Follow up as needed TOÑA CARRINGTON MD [NO LOCAL MD] - Follow up as needed YUKO RIBERA MD [NO LOCAL MD] - Follow up as needed LELO COSME DO [NO LOCAL MD] - Follow up as needed BARRY NICHOLE MD [NO LOCAL MD] - Follow up as needed GRACE DEL ROSARIO MD [NO LOCAL MD] - Follow up as needed SUHA CHUNG MD [NO LOCAL MD] - Follow up as needed JING RODRIGES MD [NO LOCAL MD] - Follow up as needed ISAIAH MARINA MD [NO LOCAL MD] - Follow up as needed ALLISON SMITH MD [NO LOCAL MD] - Follow up as needed TOMMY HORNE PA [NO LOCAL MD] - Follow up as needed LELO MCKINNON MD [NO LOCAL MD] - Follow up as needed BARBARA CALLOWAY MD [NO LOCAL MD] - Follow up as needed TALIA KINGSTON DO [NO LOCAL MD] - Follow up as needed
[2019-12-23] MEDS ORDERED: KETOROLAC TROMETHAMINE 60 MG/2 ML SDV IM ONE (13:54)
[2019-12-23] MEDS ORDERED: OXYCODONE-ACETAMINOPHEN 5-325 MG TABLET PO ONE (14:15)
== END 2019-12-23 14:25 | disposition home or self-care (01) ==
LOC: ER 11:22
DX: L03.115 Cellulitis of right lower limb (principal); R21 Rash and other nonspecific skin eruption; E78.00 Pure hypercholesterolemia, unspecified; I10 Essential (primary) hypertension; Z88.6 Allergy status to analgesic agent; Z91.040 Latex allergy status; Z91.013 Allergy to seafood
CPT/HCPCS: 36415; 80053; 81001; 82962; 85025; 99283